=== PATIENT | female | born 1930 | race Caucasian/White ===

== ENCOUNTER 2016-10-06 13:05 | Emergency (ER) | payer MEDICARE ==
[2016-10-06] MEDS ORDERED: SODIUM CHLORIDE 0.9% 1,000 ML IV STA (14:08)
--- NOTE | 2016-10-06 14:11 | ED ---
General Adult HPI - General Chief complaint: Syncope Stated complaint: NEAR SYNCOPE Time Seen by Provider: 10/06/16 14:01 Source: patient, EMS, RN notes reviewed Mode of arrival: EMS Limitations: no limitations - History of Present Illness Initial comments: Patient is a pleasant 86-year-old female presenting to the emergency Department with a near syncopal episode. Patient reportedly never fully lost consciousness. Patient does not recall the episode it is unclear why she is here. Patient states she feels fine. Patient states she felt fine earlier. No chest pain or dyspnea. No confusion. No headache. No weakness. - Related Data Home Medications Medication Instructions Recorded Confirmed Clopidogrel [Plavix] 75 mg PO DAILY 06/26/14 10/06/16 Insulin NPH Hum/Reg Insulin Hm 16 unit SQ DAILY 06/26/14 10/06/16 [NovoLIN 70-30 100 UNIT/ML VIAL] Metoprolol Tartrate 25 mg PO DAILY 06/26/14 10/06/16 metFORMIN HCL [Glucophage] 500 mg PO BID 06/26/14 10/06/16 Donepezil [Aricept] 10 mg PO DAILY 07/23/15 10/06/16 Meclizine [Antivert] 25 mg PO DAILY PRN 07/23/15 10/06/16 Atorvastatin [Lipitor] 40 mg PO DAILY 12/13/15 10/06/16 Previous Rx's Medication Instructions Recorded Losartan Potassium [Cozaar] 100 mg PO DAILY 30 Days 07/27/15 QUEtiapine [SEROquel] 50 mg PO HS 30 Days 07/27/15 Isosorbide Mononitrate ER [Imdur] 30 mg PO DAILY #0 tab.er.24h 12/14/15 Allergies Allergy/AdvReac Type Severity Reaction Status Date / Time codeine Allergy Unknown Verified 10/06/16 14:33 latex Allergy Unknown Verified 10/06/16 14:33 levofloxacin [From Levaquin] Allergy Unknown Verified 10/06/16 14:33 nitrofurantoin Allergy Unknown Verified 10/06/16 14:33 macrocrystalline [From Macrodantin] Penicillins Allergy Unknown Verified 10/06/16 14:33 propoxyphene napsylate Allergy Unknown Verified 10/06/16 14:33 [From Darvocet-N 100] shellfish derived Allergy Unknown Verified 10/06/16 14:33 Sulfa (Sulfonamide Allergy Unknown Verified 10/06/16 14:33 Antibiotics) Review of Systems ROS Statement: Those systems with pertinent positive or pertinent negative responses have been documented in the HPI. ROS Other: All systems not noted in ROS Statement are negative. Constitutional: Denies: fever Eyes: Denies: eye pain ENT: Denies: ear pain Respiratory: Denies: cough, dyspnea Cardiovascular: Denies: chest pain Endocrine: Denies: fatigue Gastrointestinal: Denies: abdominal pain Genitourinary: Denies: dysuria Musculoskeletal: Denies: back pain Skin: Denies: rash Neurological: Denies: headache, weakness, confusion Past Medical History Past Medical History: Coronary Artery Disease (CAD), Cancer, Heart Failure, CVA/ TIA, Diabetes Mellitus, Hyperlipidemia, Hypertension, Memory Impairment Additional Past Medical History / Comment(s): DIZZINESS, colon cancer, mild cognitive impairment(aricept),occipital stroke w/mild rt sided weakness, djd( spine) History of Any Multi-Drug Resistant Organisms: None Reported Past Surgical History: Appendectomy, Cholecystectomy, Heart Catheterization With Stent, Tonsillectomy Additional Past Surgical History / Comment(s): partial colon resection d/t ca Past Anesthesia/Blood Transfusion Reactions: No Reported Reaction Date of Last Stent Placement:: unk Past Psychological History: Anxiety Additional Psychological History / Comment(s): PT LIVES ALONE IN OWN HOME, USES A CANE WHEN UP, NO RECENT FALLS BUT HAS FALLEN IN PAST. STATED HAS A CLEANNG LADY COME IN TO HELP HER,OTHER THAN THAT SHE CARES FOR HERSELF. Smoking Status: Never smoker Past Alcohol Use History: Occasional Past Drug Use History: None Reported - Past Family History Father History Unknown: Yes Family Medical History: CVA/TIA Additional Family Medical History / Comment(s): PT'S DAD WAS AN ADOPTED CHILD AND SHE STATED DID'NT KNOW A LOT ABOUT HIS HX. Mother Family Medical History: CVA/TIA Additional Family Medical History / Comment(s): FROM A STROKE AT AGE 90 General Exam Limitations: no limitations General appearance: alert, in no apparent distress Head exam: Present: atraumatic, normocephalic Eye exam: Present: normal appearance, PERRL, EOMI. Absent: nystagmus ENT exam: Present: normal oropharynx Neck exam: Present: normal inspection Respiratory exam: Present: normal lung sounds bilaterally Cardiovascular Exam: Present: regular rate, normal rhythm GI/Abdominal exam: Present: soft. Absent: tenderness Extremities exam: Present: normal inspection. Absent: pedal edema, calf tenderness Back exam: Present: normal inspection Neurological exam: Present: alert, oriented X3, CN II-XII intact. Absent: motor sensory deficit Expanded Patient oriented to: Present: person, place, time Speech: Present: fluid speech Motor strength exam: RUE: 5, LUE: 5, RLE: 5, LLE: 5 Eye Response: (4) open spontaneously Motor Response: (6) obeys commands Verbal Response: (5) oriented Psychiatric exam: Present: normal affect, normal mood Skin exam: Absent: rash Course Vital Signs 10/06/16 10/06/16 10/06/16 13:42 13:47 14:54 Temperature 97.0 F L Pulse Rate 74 76 Pulse Rate [ 80 Right Supine Sales Exhibitor ] Pulse Rate [ 88 Sitting Sales Exhibitor] Pulse Rate [ 84 Standing Sales Exhibitor ] Respiratory 18 20 Rate Blood Pressure 126/61 114/77 Blood Pressure 106/58 [Right Arm Sitting] Blood Pressure 121/61 [Right Arm Standing] Blood Pressure 108/56 [Right Arm Supine] O2 Sat by Pulse 96 98 Oximetry 10/06/16 16:00 Temperature Pulse Rate 70 Pulse Rate [ Right Supine Sales Exhibitor ] Pulse Rate [ Sitting Sales Exhibitor] Pulse Rate [ Standing Sales Exhibitor ] Respiratory 18 Rate Blood Pressure 110/64 Blood Pressure [Right Arm Sitting] Blood Pressure [Right Arm Standing] Blood Pressure [Right Arm Supine] O2 Sat by Pulse 98 Oximetry EKG Findings - EKG Comments: EKG Findings:: Sinus rhythm at 82. W[place] 178. QRS 78. QT 432. QTC 504. Left axis. Normal QRS. No acute ST change. PaCs present. Medical Decision Making - Medical Decision Making Patient reexamined and symptom-free. Case discussed in detail with Dr. Daniels who is familiar with this patient. He does recommend discharge and will follow-up. He states patient has been previously evaluated for this. Patient and family updated and comfortable with discharge. They're offered admission if they do not feel comfortable with discharge however state they are comfortable with discharge and will follow-up. - Lab Data Result diagrams: 10/06/16 14:00 10/06/16 14:00 Lab Results 10/06/16 10/06/1617 Range/Units 14:00 14:00 14:00 WBC 5.3 (3.8-10.6) k/uL RBC 4.83 (3.80-5.40) m/uL Hgb 14.7 (11.4-16.0) gm/dL Hct 45.5 (34.0-46.0) % MCV 94.2 (80.0-100.0) fL MCH 30.4 (25.0-35.0) pg MCHC 32.2 (31.0-37.0) g/dL RDW 13.9 (11.5-15.5) % Plt Count 154 (150-450) k/uL Neutrophils % 71 % Lymphocytes % 18 % Monocytes % 7 % Eosinophils % 2 % Basophils % 0 % Neutrophils # 3.8 (1.3-7.7) k/uL Lymphocytes # 1.0 (1.0-4.8) k/uL Monocytes # 0.3 (0-1.0) k/uL Eosinophils # 0.1 (0-0.7) k/uL Basophils # 0.0 (0-0.2) k/uL PT (9.0-12.0) sec INR (<1.1) APTT (22.0-30.0) sec Sodium 143 (137-145) mmol/L Potassium 4.1 (3.5-5.1) mmol/L Chloride 106 (98-107) mmol/L Carbon Dioxide 25 (22-30) mmol/L Anion Gap 12 mmol/L BUN 22 H (7-17) mg/dL Creatinine 0.99 (0.52-1.04) mg/dL Est GFR (MDRD) Af Amer >60 (>60 ml/min/1.73 sqM) Est GFR (MDRD) Non-Af 53 (>60 ml/min/1.73 sqM) Glucose 94 (74-99) mg/dL Calcium 9.4 (8.4-10.2) mg/dL Total Bilirubin 0.9 (0.2-1.3) mg/dL AST 25 (14-36) U/L ALT 37 (9-52) U/L Alkaline Phosphatase 110 (38-126) U/L Total Creatine Kinase 49 (30-135) U/L CK-MB (CK-2) 1.0 (0.0-2.4) ng/mL CK-MB (CK-2) Rel Index 2.0 Troponin I 0.012 (0.000-0.034) ng/mL Total Protein 6.9 (6.3-8.2) g/dL Albumin 4.2 (3.5-5.0) g/dL 10/06/16 Range/Units 14:00 WBC (3.8-10.6) k/uL RBC (3.80-5.40) m/uL Hgb (11.4-16.0) gm/dL Hct (34.0-46.0) % MCV (80.0-100.0) fL MCH (25.0-35.0) pg MCHC (31.0-37.0) g/dL RDW (11.5-15.5) % Plt Count (150-450) k/uL Neutrophils % % Lymphocytes % % Monocytes % % Eosinophils % % Basophils % % Neutrophils # (1.3-7.7) k/uL Lymphocytes # (1.0-4.8) k/uL Monocytes # (0-1.0) k/uL Eosinophils # (0-0.7) k/uL Basophils # (0-0.2) k/uL PT 12.3 H (9.0-12.0) sec INR 1.2 (<1.1) APTT 22.2 (22.0-30.0) sec Sodium (137-145) mmol/L Potassium (3.5-5.1) mmol/L Chloride (98-107) mmol/L Carbon Dioxide (22-30) mmol/L Anion Gap mmol/L BUN (7-17) mg/dL Creatinine (0.52-1.04) mg/dL Est GFR (MDRD) Af Amer (>60 ml/min/1.73 sqM) Est GFR (MDRD) Non-Af (>60 ml/min/1.73 sqM) Glucose (74-99) mg/dL Calcium (8.4-10.2) mg/dL Total Bilirubin (0.2-1.3) mg/dL AST (14-36) U/L ALT (9-52) U/L Alkaline Phosphatase (38-126) U/L Total Creatine Kinase (30-135) U/L CK-MB (CK-2) (0.0-2.4) ng/mL CK-MB (CK-2) Rel Index Troponin I (0.000-0.034) ng/mL Total Protein (6.3-8.2) g/dL Albumin (3.5-5.0) g/dL - Radiology Data Radiology results: image reviewed (Chest x-ray shows no acute process. Computed tomography scan the brain shows no acute process. Previous infarcts are present.) Disposition Clinical Impression: Near syncope Disposition: HOME SELF-CARE Condition: Stable Instructions: Near Syncope (ED) Additional Instructions: Please follow-up with Dr. Singh in the beginning of the week. Return for passing out, chest pain, difficulty breathing, confusion, worsening symptoms or other concerns. Referrals: Leonel Singh MD [Primary Care Provider] - 1-2 days
[2016-10-06 14:28] LABS: Basophils % (A) 0 %; CH 31.3; CHCM 33.4; Eosinophils # (A) 0.1 k/uL (0-0.7); Eosinophils % (A) 2 %; HCT 45.5 % (34.0-46.0); HDW 2.58; HGB 14.7 gm/dL (11.4-16.0); Luc # (Auto) 0.11; Luc % (Auto) 2; Lymphocytes % (A) 18 %; MCH 30.4 pg (25.0-35.0); MCHC 32.2 g/dL (31.0-37.0); MCV 94.2 fL (80.0-100.0); Mean Platelet Volume 8.5; Monocytes # (A) 0.3 k/uL (0-1.0); Monocytes % (A) 7 %; Neutrophils # (A) 3.8 k/uL (1.3-7.7); Neutrophils % (A) 71 %; RBC 4.83 m/uL (3.80-5.40); RDW 13.9 % (11.5-15.5); WBC 5.3 k/uL (3.8-10.6); WBC (Perox) 4.98
--- NOTE | 2016-10-06 14:40 | XR ---
EXAMINATION TYPE: XR chest 2V DATE OF EXAM: 10/06/2016 2:32 PM COMPARISON: 10/06/2016 HISTORY: Shortness of breath TECHNIQUE: Frontal and lateral views of the chest are obtained. FINDINGS: Scattered senescent parenchymal changes noted. Hyperinflation compatible with COPD. No evidence for infiltrate. No evidence for atelectasis. Heart size is stable. Mediastinal structures are stable and grossly unremarkable. No evidence for hilar prominence. Degenerative changes dorsal spine. IMPRESSION: 1. No evidence for acute pulmonary disease.
[2016-10-06 14:45] LABS: INR 1.2 (<1.1); Partial Thromboplastin Time 22.2 sec (22.0-30.0); Prothrombin Time 12.3 sec (9.0-12.0)
[2016-10-06 14:48] LABS: ALT 37 U/L (9-52); AST 25 U/L (14-36); Alkaline Phosphatase 110 U/L (38-126); Anion Gap 12 mmol/L; Blood Urea Nitrogen 22 mg/dL (7-17); Calcium 9.4 mg/dL (8.4-10.2); Carbon Dioxide 25 mmol/L (22-30); Chloride 106 mmol/L (98-107); Glucose 94 mg/dL (74-99); Non-African American GFR(MDRD) 53 (>60 ml/min/1.73 sqM); Potassium 4.1 mmol/L (3.5-5.1); Sodium 143 mmol/L (137-145); Total Bilirubin 0.9 mg/dL (0.2-1.3); Total Protein 6.9 g/dL (6.3-8.2)
[2016-10-06 15:08] LABS: Troponin I 0.012 ng/mL (0.000-0.034)
--- NOTE | 2016-10-06 15:59 | CT ---
EXAMINATION TYPE: CT brain wo con DATE OF EXAM: 10/06/2016 3:45 PM COMPARISON: Prior CT brain 21 August 2016 HISTORY: Pt states of confusion. Altered mental status, syncope CT DLP: 973.8 mGycm Automated exposure control for dose reduction was used. FINDINGS: There is no acute intracranial hemorrhage, mass effect, or midline shift identified. The calvarium is intact. The globes are intact and the visualized sinuses are showing some mild inflammatory change i n the sphenoid on the right. Cerumen is present in the external auditory canal on the right. Evidence of chronic inferior cerebellar infarct in the left, left occipital infarct, left basal ganglia infar ct, periventricular white matter low-attenuation as on previous exam. There is cortical atrophy. IMPRESSION: No acute intracranial hemorrhage, mass effect, or midline shift is seen. Stable chronic ischemic pena ges. Evidence of previous infarctions.
[2016-10-06 16:02] VITALS: RESP 18
[2016-10-06 16:32] VITALS: BP 122/65; PULSE 67; TEMP 98
== END 2016-10-06 16:39 | disposition home or self-care (01) ==
LOC: EC 13:05
DX: R55 Syncope and collapse (principal); I69.351 Hemiplegia and hemiparesis following cerebral infarction affecting right dominant side; I11.0 Hypertensive heart disease with heart failure; I50.9 Heart failure, unspecified; E11.9 Type 2 diabetes mellitus without complications; G31.84 Mild cognitive impairment of uncertain or unknown etiology; E78.5 Hyperlipidemia, unspecified; I25.10 Atherosclerotic heart disease of native coronary artery without angina pectoris; F41.9 Anxiety disorder, unspecified; Z95.5 Presence of coronary angioplasty implant and graft; Z79.84 Long term (current) use of oral hypoglycemic drugs; Z79.02 Long term (current) use of antithrombotics/antiplatelets; Z79.4 Long term (current) use of insulin; Z79.899 Other long term (current) drug therapy; Z88.0 Allergy status to penicillin; Z88.1 Allergy status to other antibiotic agents; Z88.2 Allergy status to sulfonamides; Z88.5 Allergy status to narcotic agent; Z91.040 Latex allergy status
CPT/HCPCS: 36415; 70450; 71020; 80053; 82550; 82553; 84484; 85025; 85610; 85730; 93005; 96360; 96361; 99285

== ENCOUNTER 2017-10-05 12:54 | Inpatient (IN) | payer MEDICARE ==
[2017-10-05] MEDS ORDERED: DILTIAZEM 125 MG in SODIUM CHLORIDE 0.9% 100 ML IV ONE (13:08)
[2017-10-05] MEDS ORDERED: DILTIAZEM 5 MG/ML 5 ML VIAL IVP STA (13:08)
[2017-10-05] MEDS ORDERED: SODIUM CHLORIDE 0.9% 500 ML IV STA (13:08)
[2017-10-05] MEDS ORDERED: HEPARIN SODIUM,PORCINE 5,000 UNIT/ML 1 ML VIAL IV ONE (13:08)
[2017-10-05] MEDS ORDERED: SODIUM CHLORIDE 0.9% 1,000 ML IV STA (13:08)
[2017-10-05] MEDS ORDERED: HEPARIN SODIUM,PORCINE 5,000 UNIT/ML 1 ML VIAL IV PRN (13:08)
--- NOTE | 2017-10-05 13:26 | ED ---
General Adult HPI - General Chief complaint: Altered Mental Status Stated complaint: SOB,Confusion Time Seen by Provider: 10/05/17 12:56 Source: patient, EMS, RN notes reviewed, old records reviewed Mode of arrival: EMS Limitations: altered mental status - History of Present Illness Initial comments: This is an 87-year-old female to the ER for evaluation. This patient is safe for evaluation regards to altered mental state. Patient comes from snf , patient was found showing up to breakfast in her nightgown. This is not certain this patient has done in the past. Patient denies any complaints at this time no headache or chest pain or shortness of breath no abdominal pain recent nausea vomiting diarrhea no fevers. No recent medication changes. - Related Data Home Medications Medication Instructions Recorded Confirmed Clopidogrel [Plavix] 75 mg PO DAILY 06/26/14 10/05/17 Metoprolol Tartrate 25 mg PO HS 06/26/14 10/05/17 metFORMIN HCL [Glucophage] 500 mg PO BID 06/26/14 10/05/17 Donepezil [Aricept] 10 mg PO HS 07/23/15 10/05/17 Meclizine [Antivert] 25 mg PO HS 07/23/15 10/05/17 Aspirin EC [Ecotrin Low Dose] 81 mg PO DAILY 10/05/17 10/05/17 Citalopram Hydrobromide [CeleXA] 10 mg PO DAILY 10/05/17 10/05/17 Insuln Asp Prt/Insulin Aspart 5 unit SQ BID 10/05/17 10/05/17 [NovoLOG MIX 70-30 VIAL] Previous Rx's Medication Instructions Recorded Losartan Potassium [Cozaar] 100 mg PO DAILY 30 Days tab 07/27/15 Isosorbide Mononitrate ER [Imdur] 30 mg PO DAILY #0 tab.er.24h 12/14/15 Allergies Allergy/AdvReac Type Severity Reaction Status Date / Time codeine Allergy Unknown Verified 10/05/17 13:32 latex Allergy Unknown Verified 10/05/17 13:32 levofloxacin [From Levaquin] Allergy Unknown Verified 10/05/17 13:32 nitrofurantoin Allergy Unknown Verified 10/05/17 13:32 macrocrystalline [From Macrodantin] Penicillins Allergy Unknown Verified 10/05/17 13:32 propoxyphene napsylate Allergy Unknown Verified 10/05/17 13:32 [From Darvocet-N 100] shellfish derived Allergy Unknown Verified 10/05/17 13:32 Sulfa (Sulfonamide Allergy Unknown Verified 10/05/17 13:32 Antibiotics) Review of Systems ROS Statement: Those systems with pertinent positive or pertinent negative responses have been documented in the HPI. ROS Other: All systems not noted in ROS Statement are negative. Past Medical History Past Medical History: Coronary Artery Disease (CAD), Cancer, Heart Failure, CVA/ TIA, Diabetes Mellitus, Hyperlipidemia, Hypertension, Memory Impairment Additional Past Medical History / Comment(s): DIZZINESS, colon cancer, mild cognitive impairment(aricept),occipital stroke w/mild rt sided weakness, djd( spine) History of Any Multi-Drug Resistant Organisms: None Reported Past Surgical History: Appendectomy, Cholecystectomy, Heart Catheterization With Stent, Tonsillectomy Additional Past Surgical History / Comment(s): partial colon resection d/t ca Past Anesthesia/Blood Transfusion Reactions: No Reported Reaction Date of Last Stent Placement:: unk Past Psychological History: Anxiety Smoking Status: Never smoker Past Alcohol Use History: Occasional Past Drug Use History: None Reported - Past Family History Father History Unknown: Yes Family Medical History: CVA/TIA Additional Family Medical History / Comment(s): PT'S DAD WAS AN ADOPTED CHILD AND SHE STATED DID'NT KNOW A LOT ABOUT HIS HX. Mother Family Medical History: CVA/TIA Additional Family Medical History / Comment(s): FROM A STROKE AT AGE 90 General Exam Limitations: altered mental status General appearance: alert, in no apparent distress Head exam: Present: atraumatic, normocephalic, normal inspection Eye exam: Present: normal appearance, PERRL, EOMI. Absent: scleral icterus, conjunctival injection, periorbital swelling ENT exam: Present: normal exam, mucous membranes moist Neck exam: Present: normal inspection. Absent: tenderness, meningismus, lymphadenopathy Respiratory exam: Present: normal lung sounds bilaterally. Absent: respiratory distress, wheezes, rales, rhonchi, stridor Cardiovascular Exam: Present: tachycardia, irregular rhythm, normal heart sounds. Absent: systolic murmur, diastolic murmur, rubs, gallop, clicks GI/Abdominal exam: Present: soft, normal bowel sounds. Absent: distended, tenderness, guarding, rebound, rigid Extremities exam: Present: normal inspection, full ROM, normal capillary refill. Absent: tenderness, pedal edema, joint swelling, calf tenderness Back exam: Present: normal inspection Neurological exam: Present: alert, oriented X3, CN II-XII intact Psychiatric exam: Present: normal affect, normal mood Skin exam: Present: warm, dry, intact, normal color. Absent: rash Course Vital Signs 10/05/17 10/05/17 12:57 14:02 Temperature 98.3 F Pulse Rate 88 88 Respiratory 16 16 Rate Blood Pressure 123/95 157/81 O2 Sat by Pulse 96 95 Oximetry - Reevaluation(s) Reevaluation #1: 10/05/17 13:31 Patient appears to answer questions appropriately, shows humility fractions this morning Reevaluation #2: 10/05/17 14:25 Patient continues to remain for the most part lucid, denies chest pain or shortness of breath EKG Findings - EKG Comments: EKG Findings:: EKG shows A. fib with RVR rate 170, QRS 76, QTc 5:30 Medical Decision Making - Medical Decision Making 87 female the ER for altered mental status, patient with positive nature for ablation with RVR, patient will be admitted for current and continue monitoring of altered mental status. Controlled atrial fibrillation - Lab Data Result diagrams: 10/05/17 13:00 10/05/17 13:00 Lab Results 10/05/17 10/05/17 10/05/17 Range/Units 13:00 13:00 13:00 WBC 5.7 (3.8-10.6) k/uL RBC 4.89 (3.80-5.40) m/uL Hgb 14.8 (11.4-16.0) gm/dL Hct 47.2 H (34.0-46.0) % MCV 96.6 (80.0-100.0) fL MCH 30.3 (25.0-35.0) pg MCHC 31.4 (31.0-37.0) g/dL RDW 14.3 (11.5-15.5) % Plt Count 185 (150-450) k/uL Neutrophils % 76 % Lymphocytes % 15 % Monocytes % 4 % Eosinophils % 1 % Basophils % 1 % Neutrophils # 4.4 (1.3-7.7) k/uL Lymphocytes # 0.9 L (1.0-4.8) k/uL Monocytes # 0.2 (0-1.0) k/uL Eosinophils # 0.1 (0-0.7) k/uL Basophils # 0.0 (0-0.2) k/uL PT (9.0-12.0) sec INR (<1.2) APTT (22.0-30.0) sec D-Dimer (<0.60) mg/L FEU Sodium 139 (137-145) mmol/L Potassium 4.1 (3.5-5.1) mmol/L Chloride 103 (98-107) mmol/L Carbon Dioxide 24 (22-30) mmol/L Anion Gap 12 mmol/L BUN 19 H (7-17) mg/dL Creatinine 0.90 (0.52-1.04) mg/dL Est GFR (MDRD) Af Amer >60 (>60 ml/min/1.73 sqM) Est GFR (MDRD) Non-Af 59 (>60 ml/min/1.73 sqM) Glucose 459 H* (74-99) mg/dL POC Glucose (mg/dL) (75-99) mg/dL POC Glu Mechanical Manager ID Calcium 9.4 (8.4-10.2) mg/dL Phosphorus 3.1 (2.5-4.5) mg/dL Magnesium 1.6 (1.6-2.3) mg/dL Total Bilirubin 0.7 (0.2-1.3) mg/dL AST 15 (14-36) U/L ALT 25 (9-52) U/L Alkaline Phosphatase 111 (38-126) U/L Total Creatine Kinase 27 L (30-135) U/L CK-MB (CK-2) 0.5 (0.0-2.4) ng/mL CK-MB (CK-2) Rel Index 1.9 Troponin I 0.014 (0.000-0.034) ng/mL NT-Pro-B Natriuret Pep pg/mL Total Protein 6.0 L (6.3-8.2) g/dL Albumin 3.6 (3.5-5.0) g/dL 10/05/17 10/05/17 10/05/17 Range/Units 13:00 13:00 13:15 WBC (3.8-10.6) k/uL RBC (3.80-5.40) m/uL Hgb (11.4-16.0) gm/dL Hct (34.0-46.0) % MCV (80.0-100.0) fL MCH (25.0-35.0) pg MCHC (31.0-37.0) g/dL RDW (11.5-15.5) % Plt Count (150-450) k/uL Neutrophils % % Lymphocytes % % Monocytes % % Eosinophils % % Basophils % % Neutrophils # (1.3-7.7) k/uL Lymphocytes # (1.0-4.8) k/uL Monocytes # (0-1.0) k/uL Eosinophils # (0-0.7) k/uL Basophils # (0-0.2) k/uL PT 11.5 (9.0-12.0) sec INR 1.2 H (<1.2) APTT 21.9 L (22.0-30.0) sec D-Dimer 0.87 H (<0.60) mg/L FEU Sodium (137-145) mmol/L Potassium (3.5-5.1) mmol/L Chloride (98-107) mmol/L Carbon Dioxide (22-30) mmol/L Anion Gap mmol/L BUN (7-17) mg/dL Creatinine (0.52-1.04) mg/dL Est GFR (MDRD) Af Amer (>60 ml/min/1.73 sqM) Est GFR (MDRD) Non-Af (>60 ml/min/1.73 sqM) Glucose (74-99) mg/dL POC Glucose (mg/dL) 420 H (75-99) mg/dL POC Glu Mechanical Manager ID [place] Calcium (8.4-10.2) mg/dL Phosphorus (2.5-4.5) mg/dL Magnesium (1.6-2.3) mg/dL Total Bilirubin (0.2-1.3) mg/dL AST (14-36) U/L ALT (9-52) U/L Alkaline Phosphatase (38-126) U/L Total Creatine Kinase (30-135) U/L CK-MB (CK-2) (0.0-2.4) ng/mL CK-MB (CK-2) Rel Index Troponin I (0.000-0.034) ng/mL NT-Pro-B Natriuret Pep 1100 pg/mL Total Protein (6.3-8.2) g/dL Albumin (3.5-5.0) g/dL - Radiology Data Radiology results: report reviewed (Chest x-ray CT brain negative CT chest pending), image reviewed Disposition Clinical Impression: Delirium due to general medical condition, Urinary tract infection, Altered mental status, Atrial fibrillation with RVR, New onset atrial fibrillation Disposition: ADMITTED IP TO THIS HOSP Condition: Good Referrals: Mahin Kim MD [Primary Care Provider] - 1-2 days
[2017-10-05 13:51] LABS: Basophils % (A) 1 %; Eosinophils # (A) 0.1 k/uL (0-0.7); Eosinophils % (A) 1 %; HCT 47.2 % (34.0-46.0); HGB 14.8 gm/dL (11.4-16.0); Lymphocytes # (A) 0.9 k/uL (1.0-4.8); Lymphocytes % (A) 15 %; MCH 30.3 pg (25.0-35.0); MCHC 31.4 g/dL (31.0-37.0); MCV 96.6 fL (80.0-100.0); Mean Platelet Volume 8.8; Monocytes # (A) 0.2 k/uL (0-1.0); Monocytes % (A) 4 %; Neutrophils # (A) 4.4 k/uL (1.3-7.7); Neutrophils % (A) 76 %; Platelet Count 185 k/uL (150-450); RBC 4.89 m/uL (3.80-5.40); RDW 14.3 % (11.5-15.5); WBC 5.7 k/uL (3.8-10.6)
[2017-10-05 13:58] LABS: ALT 25 U/L (9-52); AST 15 U/L (14-36); Albumin 3.6 g/dL (3.5-5.0); Alkaline Phosphatase 111 U/L (38-126); Anion Gap 12 mmol/L; Blood Urea Nitrogen 19 mg/dL (7-17); Calcium 9.4 mg/dL (8.4-10.2); Carbon Dioxide 24 mmol/L (22-30); Chloride 103 mmol/L (98-107); Magnesium 1.6 mg/dL (1.6-2.3); Phosphorus 3.1 mg/dL (2.5-4.5); Potassium 4.1 mmol/L (3.5-5.1); Sodium 139 mmol/L (137-145); Total Bilirubin 0.7 mg/dL (0.2-1.3)
[2017-10-05 14:02] LABS: Glucose,Whole Blood 420 mg/dL (75-99)
--- NOTE | 2017-10-05 14:04 | XR ---
EXAMINATION TYPE: XR chest 2V DATE OF EXAM: 10/05/2017 COMPARISON: Prior chest x-ray 10/06/2016 HISTORY: Weakness TECHNIQUE: Frontal and lateral views of the chest are obtained. FINDINGS: There is no focal air space opacity, pleural effusion, or pneumothorax seen. The cardiac silhouette size is stable. There are coronary artery calcifications. There are overlying cardiac reena ds. Suspect previous resection of the distal right clavicle. Apical density superimposed over the med ial right clavicle is unchanged. The osseous structures are intact. IMPRESSION: No acute cardiopulmonary process.
--- NOTE | 2017-10-05 14:07 | CT ---
EXAMINATION TYPE: CT brain wo con DATE OF EXAM: 10/05/2017 COMPARISON: 10/06/2016 HISTORY: Weakness. History of Occipital stroke with mild right sided weakness. CT DLP: 978.20 mGycm Automated exposure control for dose reduction was used. FINDINGS: Remote left cerebellar infarct noted. There is moderate to severe generalized degenerative change wit h evidence of a remote infarct involving the left occipital lobe and parietal lobe. Abnormal attenuation the periventricular white matter suggestive of remote microvascular ischemia. Hyperostosis of the calvarium. No acute hemorrhage, mass effect or midline shift. Hypodensity within the left basal ganglia may represent a remote lacunar infarct. Findings stable IMPRESSION: DEGENERATIVE AND NONSPECIFIC WHITE MATTER CHANGES MOST TYPICAL REMOTE MICROVASCULAR ISCHEMIA. AREAS O F REMOTE ISCHEMIA. STABLE WITH NO ACUTE HEMORRHAGE OR MASS EFFECT
[2017-10-05 14:10] LABS: D-Dimer 0.87 mg/L FEU (<0.60); INR 1.2 (<1.2); Partial Thromboplastin Time 21.9 sec (22.0-30.0); Prothrombin Time 11.5 sec (9.0-12.0)
[2017-10-05] MEDS: HEPARIN SOD,PORK IN 0.45% NACL 25,000 UNIT in 0.45% NACL 1 500ML.BAG IV SCH (14:10)
[2017-10-05 14:14] LABS: Creatine Kinase MB 0.5 ng/mL (0.0-2.4); Troponin I 0.014 ng/mL (0.000-0.034)
[2017-10-05 14:15] LABS: Glucose 459 mg/dL (74-99)
[2017-10-05] MEDS ORDERED: RX INFO: IV CONTRAST WAS GIVEN 1 EACH MISC MISCELLANE PRN (14:23)
--- NOTE | 2017-10-05 15:35 | CT ---
EXAMINATION TYPE: CT angio chest DATE OF EXAM: 10/05/2017 COMPARISON: 12/18/2015 HISTORY: 87-year-old female SOB and Confusion TECHNIQUE: Contiguous axial scanning of the chest performed with IV Contrast, patient injected with 1 00 ml mL of Omnipaque 350. Coronal/sagittal MIP reconstructions performed. CT DLP: 195.9 mGycm Automated exposure control for dose reduction was used. FINDINGS: Heart upper limits of normal in size without pericardial effusion. Mitral annular and coronary vessel calcifications are present. Ascending aorta is ectatic at 3.9 cm, unchanged. Conventional arch vessel branching anatomy with very mild scattered arthroscopic calcifications. Satisfactory opacification of the pulmonary arterial system without evidence for pulmonary embolus. Prominent dependent atelectasis and additional hazy densities in the lungs likely generalized atelect asis. Mild diffuse bronchial wall thickening is noted. Some prominent left hilar soft tissue measurin g 1.2 cm there is increased from 12/18/2015. Six-month follow-up can be performed. Possible underlying postinflammatory lymph node. Moderate size hiatal hernia. No osseous destructive process. Fatty matrix hemangiomas within T2 and T 9 vertebral bodies. IMPRESSION: 1. NO EVIDENCE FOR PULMONARY EMBOLUS. 2. 1.2 CM LEFT HILAR SOFT TISSUE PROBABLY REPRESENTS A POSTINFLAMMATORY LYMPH NODE. SIX-MONTH FOLLOW -UP CONTRAST-ENHANCED CT TO REASSESS THIS AREA. 3. MILD DIFFUSE BRONCHIAL WALL THICKENING. CORRELATE FOR BRONCHITIS OR ASTHMA 4. ADDITIONAL HAZY DENSITIES IN BOTH LUNGS LIKELY RELATING TO GENERALIZED ATELECTASIS. 5. MODERATE-SIZED HIATAL HERNIA.
[2017-10-05 15:39] LABS: Appearance,Urine Clear (Clear); Bilirubin,Urine Negative (Negative); Blood,Urine Negative (Negative); Color,Urine Yellow; Glucose,Urine (UA) 4+ (Negative); Ketones,Urine Negative (Negative); Leukocyte Esterase,Urine Negative (Negative); Nitrite,Urine Negative (Negative); PH, Urine 5.5 (5.0-8.0); Protein,Urine Negative (Negative); Specific Gravity,Urine 1.031 (1.001-1.035); Urobilinogen,Urine <2.0 mg/dL (<2.0)
[2017-10-05] MEDS ORDERED: MORPHINE SULFATE 2 MG/ML SYRINGE IV PRN (16:02)
[2017-10-05] MEDS ORDERED: NITROGLYCERIN SL TABS 0.4 MG TAB SUBLINGUAL PRN (16:02)
[2017-10-05] MEDS ORDERED: INSULIN REGULAR 100 UNIT/ML VIAL SQ ONE (16:03)
[2017-10-05] MEDS ORDERED: INSULIN REGULAR 100 UNIT/ML VIAL IV ONE (16:03)
[2017-10-05 16:28] LABS: Glucose,Whole Blood 331 mg/dL (75-99)
[2017-10-05 17:16] LABS: Glucose,Whole Blood 253 mg/dL (75-99)
[2017-10-05] MEDS: INSULIN ASPART 100 UNIT/ML 1 ML 10 ML VIAL SQ SCH (18:05)
[2017-10-05 19:38] LABS: Creatine Kinase 33 U/L (30-135)
[2017-10-05 19:51] LABS: Creatine Kinase MB 0.5 ng/mL (0.0-2.4); Troponin I <0.012 ng/mL (0.000-0.034)
[2017-10-05] MEDS ORDERED: Magnesium Replacement Protocol 1 EACH MISC MISCELLANE PRN (21:55)
[2017-10-06 01:49] LABS: Creatine Kinase 35 U/L (30-135)
[2017-10-06 02:01] LABS: Creatine Kinase MB 0.7 ng/mL (0.0-2.4); Troponin I <0.012 ng/mL (0.000-0.034)
[2017-10-06 06:46] LABS: Basophils % (A) 0 %; Eosinophils # (A) 0.1 k/uL (0-0.7); Eosinophils % (A) 2 %; HCT 41.4 % (34.0-46.0); HGB 13.5 gm/dL (11.4-16.0); Lymphocytes # (A) 1.5 k/uL (1.0-4.8); Lymphocytes % (A) 29 %; MCH 30.2 pg (25.0-35.0); MCHC 32.5 g/dL (31.0-37.0); MCV 92.9 fL (80.0-100.0); Mean Platelet Volume 8.2; Monocytes # (A) 0.3 k/uL (0-1.0); Monocytes % (A) 6 %; Neutrophils # (A) 3.2 k/uL (1.3-7.7); Neutrophils % (A) 59 %; Platelet Count 164 k/uL (150-450); RBC 4.46 m/uL (3.80-5.40); RDW 13.4 % (11.5-15.5); WBC 5.3 k/uL (3.8-10.6)
[2017-10-06 06:54] LABS: Glucose,Whole Blood 185 mg/dL (75-99)
[2017-10-06 06:58] LABS: Magnesium 1.5 mg/dL (1.6-2.3)
[2017-10-06] MEDS: INSULIN ASPART 100 UNIT/ML 1 ML 10 ML VIAL SQ SCH ×3 (07:11→17:21)
[2017-10-06] MEDS: INSULN ASP PRT/INSULIN ASPART 100 UNIT/ML 10 ML VIAL SQ SCH ×2 (07:11→17:21)
[2017-10-06 07:28] LABS: ALT 29 U/L (9-52); AST 15 U/L (14-36); Albumin 3.4 g/dL (3.5-5.0); Alkaline Phosphatase 96 U/L (38-126); Anion Gap 10 mmol/L; Blood Urea Nitrogen 16 mg/dL (7-17); Calcium 9.1 mg/dL (8.4-10.2); Carbon Dioxide 23 mmol/L (22-30); Chloride 108 mmol/L (98-107); Glucose 202 mg/dL (74-99); Potassium 3.6 mmol/L (3.5-5.1); Sodium 141 mmol/L (137-145); Total Bilirubin 0.5 mg/dL (0.2-1.3); Total Protein 5.7 g/dL (6.3-8.2)
[2017-10-06] MEDS: MAGNESIUM SULFATE-D5W PMX 1 GM in DEXTROSE/WATER 1 100ML.BAG IVPB SCH ×2 (08:20→09:59)
[2017-10-06] MEDS: LOSARTAN 50 MG TAB PO SCH (08:21)
[2017-10-06] MEDS: CITALOPRAM HYDROBROMIDE 10 MG TAB PO SCH (08:21)
[2017-10-06] MEDS: metFORMIN 500 MG TAB PO SCH ×2 (08:21→21:29)
[2017-10-06] MEDS: CLOPIDOGREL 75 MG TAB PO SCH (08:22)
[2017-10-06] MEDS: ASPIRIN 325 MG TAB PO SCH (08:24)
--- NOTE | 2017-10-06 08:28 | P.CRDCN ---
History of Present Illness History of present illness: Patient initially admitted with altered mental status. I'm not able to get much of a history but she doesn't really know why she is here. She is awake alert but her responses do not make sense and she doesn't answer questions appropriately Review of systems not available Past history of coronary artery disease diabetes and dyslipidemia hypertension and memory impairment Past surgical history of appendectomy cholecystectomy, catheterization and stenting, partial resection of the colon ALLERGY list is documented in the chart Medication list was reviewed and is documented On examination temperature 98.3F respirations normal blood pressure 171/98 and 116/82 mmHg afebrile Breath sounds are reduced bilaterally no rhonchi no crackles Heart sounds are irregular no murmurs or gallops abdomen soft nontender extremity is warm no edema Twelve-lead ECG shows atrial fibrillation with RVR 117 beats a minute Impression Atrial fibrillation with RVR Known CAD History of coronary stenting Adult-onset diabetes Hypertension Dyslipidemia Suggest Increase metoprolol to 25 mg twice daily Watch blood pressure and maximize antihypertensive therapy, watch heart rates TSH level The coagulation for stroke prevention is medically indicated but she is not on anticoagulation at home. I'm not sure if this is new onset atrial fibrillation and not if she is safe from a fall standpoint and bleeding risk then ELIQUIS 2.5 mg twice daily may be considered. Past Medical History Past Medical History: Coronary Artery Disease (CAD), Cancer, Heart Failure, CVA/ TIA, Diabetes Mellitus, Hyperlipidemia, Hypertension, Memory Impairment Additional Past Medical History / Comment(s): DIZZINESS, colon cancer, mild cognitive impairment(aricept),occipital stroke w/mild rt sided weakness, djd( spine) History of Any Multi-Drug Resistant Organisms: None Reported Past Surgical History: Appendectomy, Cholecystectomy, Heart Catheterization With Stent, Tonsillectomy Additional Past Surgical History / Comment(s): partial colon resection d/t ca Past Anesthesia/Blood Transfusion Reactions: No Reported Reaction Date of Last Stent Placement:: unk Past Psychological History: Anxiety Additional Psychological History / Comment(s): PT LIVES ALONE IN OWN HOME, USES A CANE WHEN UP, NO RECENT FALLS BUT HAS FALLEN IN PAST. STATED HAS A CLEANNG LADY COME IN TO HELP HER,OTHER THAN THAT SHE CARES FOR HERSELF. Smoking Status: Never smoker Past Alcohol Use History: Occasional Past Drug Use History: None Reported - Past Family History Father History Unknown: Yes Family Medical History: CVA/TIA Additional Family Medical History / Comment(s): PT'S DAD WAS AN ADOPTED CHILD AND SHE STATED DID'NT KNOW A LOT ABOUT HIS HX. Mother Family Medical History: CVA/TIA Additional Family Medical History / Comment(s): FROM A STROKE AT AGE 90 Medications and Allergies Home Medications Medication Instructions Recorded Confirmed Type Clopidogrel [Plavix] 75 mg PO DAILY 06/26/14 10/05/17 History Metoprolol Tartrate 25 mg PO HS 06/26/14 10/05/17 History metFORMIN HCL [Glucophage] 500 mg PO BID 06/26/14 10/05/17 History Donepezil [Aricept] 10 mg PO HS 07/23/15 10/05/17 History Meclizine [Antivert] 25 mg PO HS 07/23/15 10/05/17 History Losartan Potassium [Cozaar] 100 mg PO DAILY 30 Days tab 07/27/15 10/05/17 Rx Isosorbide Mononitrate ER [Imdur] 30 mg PO DAILY #0 tab.er.24h 12/14/15 Rx Aspirin EC [Ecotrin Low Dose] 81 mg PO DAILY 10/05/17 10/05/17 History Citalopram Hydrobromide [CeleXA] 10 mg PO DAILY 10/05/17 10/05/17 History Insuln Asp Prt/Insulin Aspart 5 unit SQ BID 10/05/17 10/05/17 History [NovoLOG MIX 70-30 VIAL] Allergies Allergy/AdvReac Type Severity Reaction Status Date / Time codeine Allergy Unknown Verified 10/05/17 13:32 latex Allergy Unknown Verified 10/05/17 13:32 levofloxacin [From Levaquin] Allergy Unknown Verified 10/05/17 13:32 nitrofurantoin Allergy Unknown Verified 10/05/17 13:32 macrocrystalline [From Macrodantin] Penicillins Allergy Unknown Verified 10/05/17 13:32 propoxyphene napsylate Allergy Unknown Verified 10/05/17 13:32 [From Darvocet-N 100] shellfish derived Allergy Unknown Verified 10/05/17 13:32 Sulfa (Sulfonamide Allergy Unknown Verified 10/05/17 13:32 Antibiotics) Physical Exam Vitals: Vital Signs Temp Pulse Pulse Resp BP BP Pulse Ox 10/06/17 07:14 97.5 F L 94 17 169/82 94 L 10/06/17 04:00 97.0 F L 87 18 171/98 95 10/06/17 00:00 97.0 F L 93 18 137/103 98 10/05/17 20:00 97.6 F 93 18 124/62 95 10/05/17 18:00 98.0 F 20 94 L 10/05/17 16:35 98 F 91 16 156/78 95 10/05/17 15:30 97.9 F 73 16 157/83 97 10/05/17 14:02 88 16 157/81 95 10/05/17 12:57 98.3 F 88 16 123/95 96 Intake and Output 10/05/17 10/06/17 10/06/17 22:59 06:59 14:59 Intake Total 200 800 387.091 Balance 200 800 387.091 Intake: Intake, IV Titration 800 269.091 Amount Heparin Sod,Pork in 0.45% 269.091 NaCl 25,000 unit In 0.45 % NaCl 1 500ml.bag @ 12 UNITS/KG/HR 15.86 mls/hr IV .Q24H DREW Rx#: [id number] Sodium Chloride 0.9% 1, 800 000 ml @ 100 mls/hr IV . Q10H STA Rx#:[id number] Oral 200 118 Other: Voiding Method Toilet Toilet Weight 63.5 kg Results 10/06/17 05:51 10/06/17 05:51 Cardiac Enzymes 10/05/17 10/05/17 10/05/17 Range/Units 13:00 13:00 18:44 AST 15 (14-36) U/L CK-MB (CK-2) 0.5 0.5 (0.0-2.4) ng/mL Troponin I 0.014 <0.012 (0.000-0.034) ng/mL 10/06/17 10/06/17 Range/Units 00:54 05:51 AST 15 (14-36) U/L CK-MB (CK-2) 0.7 (0.0-2.4) ng/mL Troponin I <0.012 (0.000-0.034) ng/mL Coagulation 10/05/17 10/05/17 10/06/17 Range/Units 13:00 18:44 05:51 PT 11.5 (9.0-12.0) sec APTT 21.9 L 48.9 H 46.0 H (22.0-30.0) sec Lipids 10/06/17 Range/Units 05:51 Triglycerides 111 (<150) mg/dL Cholesterol 209 H (<200) mg/dL HDL Cholesterol 66 H (40-60) mg/dL CBC 10/05/17 10/06/17 Range/Units 13:00 05:51 WBC 5.7 5.3 (3.8-10.6) k/uL RBC 4.89 4.46 (3.80-5.40) m/uL Hgb 14.8 13.5 (11.4-16.0) gm/dL Hct 47.2 H 41.4 (34.0-46.0) % Plt Count 185 164 (150-450) k/uL Comprehensive Metabolic Panel 10/05/17 10/06/17 Range/Units 13:00 05:51 Sodium 139 141 (137-145) mmol/L Potassium 4.1 3.6 (3.5-5.1) mmol/L Chloride 103 108 H (98-107) mmol/L Carbon Dioxide 24 23 (22-30) mmol/L BUN 19 H 16 (7-17) mg/dL Creatinine 0.90 0.69 (0.52-1.04) mg/dL Glucose 459 H* 202 H (74-99) mg/dL Calcium 9.4 9.1 (8.4-10.2) mg/dL AST 15 15 (14-36) U/L ALT 25 29 (9-52) U/L Alkaline Phosphatase 111 96 (38-126) U/L Total Protein 6.0 L 5.7 L (6.3-8.2) g/dL Albumin 3.6 3.4 L (3.5-5.0) g/dL Current Medications Generic Name Dose Route Start Last Admin Trade Name Freq PRN Reason Stop Dose Admin Aspirin 325 mg 10/06/17 09:00 10/06/17 08:24 Aspirin PO 325 mg DAILY DREW Administration Citalopram Hydrobromide 10 mg 10/06/17 09:00 10/06/17 08:21 Celexa PO 10 mg DAILY DREW Administration Clopidogrel Bisulfate 75 mg 10/06/17 09:00 10/06/17 08:22 Plavix PO 75 mg DAILY DREW Administration Donepezil HCl 10 mg 10/06/17 21:00 Aricept PO HS DREW Heparin Sodium (Porcine) 0 unit 10/05/17 13:08 10/06/17 08:25 Heparin IV 1,587 unit PER PROTOCOL PRN Administration Low PTT Protocol Diltiazem HCl 125 mg/ Sodium 125 mls @ 5 mls/hr 10/05/17 13:08 10/05/17 14:14 Chloride IV 10/06/17 13:07 Not Given .Q24H ONE 5 MG/HR Heparin Sodium/Sodium Chloride 500 mls @ 15.86 mls/hr 10/05/17 13:15 07:08 25,000 unit/ Sodium Chloride IV 14 units/kg/hr .Q24H DREW 18.5 mls/hr Protocol Titration 12 UNITS/KG/HR Magnesium Sulfate/Dextrose 1 100 mls @ 100 mls/hr 10/06/17 07:30 10/06/17 08: 20 gm/ IV Solution IVPB 10/06/17 09:29 100 mls/hr Q1H DREW Administration Insulin Aspart 0 unit 10/05/17 17:30 10/06/17 07:11 Novolog SQ 2 unit AC-TID DREW Administration Protocol Insulin Aspart 5 unit 10/06/17 07:30 10/06/17 07:11 Novolog Mix 70-30 Vial SQ 5 unit AC-BID DREW Administration Isosorbide Mononitrate 30 mg 10/06/17 09:00 10/06/17 08:21 Imdur PO 30 mg DAILY DREW Administration Losartan Potassium 100 mg 10/06/17 09:00 10/06/17 08:21 Cozaar PO 100 mg DAILY DREW Administration Meclizine HCl 25 mg 10/06/17 21:00 Antivert PO HS DREW Metformin HCl 500 mg 10/06/17 09:00 10/06/17 08:21 Glucophage PO 500 mg BID DREW Administration Metoprolol Tartrate 25 mg 10/06/17 21:00 Lopressor PO HS DREW Miscellaneous Information 1 each 10/05/17 14:23 Rx Info: Iv Contrast Was Given MISCELLANE 10/07/17 14:23 DAILY PRN Per Protocol Miscellaneous Information 1 each 10/05/17 21:55 Magnesium Per Protocol MISCELLANE DAILY PRN Per Protocol Protocol Morphine Sulfate 4 mg 10/05/17 16:02 Morphine Sulfate (Inj) IV Q5M PRN Chest Pain Nitroglycerin 0.4 mg 10/05/17 16:02 Nitrostat SUBLINGUAL Q5M PRN Chest Pain Intake and Output 10/05/17 10/06/17 10/06/17 22:59 06:59 14:59 Intake Total 200 800 387.091 Balance 200 800 387.091 Intake: Intake, IV Titration 800 269.091 Amount Heparin Sod,Pork in 0.45% 269.091 NaCl 25,000 unit In 0.45 % NaCl 1 500ml.bag @ 12 UNITS/KG/HR 15.86 mls/hr IV .Q24H DREW Rx#: [id number] Sodium Chloride 0.9% 1, 800 000 ml @ 100 mls/hr IV . Q10H STA Rx#:[id number] Oral 200 118 Other: Voiding Method Toilet Toilet Weight 63.5 kg 10/06/17 05:51 10/06/17 05:51
[2017-10-06] MEDS ORDERED: NON-FORMULARY DRUG (Aspirin Ec 81 MG) PO SCH (09:00)
[2017-10-06] MEDS ORDERED: ISOSORBIDE MONONITRATE ER 30 MG TAB.ER.24H PO SCH (09:00)
--- NOTE | 2017-10-06 09:07 | US ---
EXAMINATION TYPE: US carotid duplex BILAT DATE OF EXAM: 10/06/2017 COMPARISON: Previous study dated 06/27/2014. CLINICAL HISTORY: cva. Weakness, confusion EXAM MEASUREMENTS: RIGHT: Peak Systolic Velocity (PSV) cm/sec ----- Right CCA: 57.0 ----- Right ICA: 72.4 ----- Right ECA: 74.6 ICA/CCA ratio: 1.3 RIGHT: End Diastole cm/sec ----- Right CCA: 10.9 ----- Right ICA: 15.3 ----- Right ECA: 0.0 LEFT: Peak Systolic Velocity (PSV) cm/sec ----- Left CCA: 76.7 ----- Left ICA: 103.4 ----- Left ECA: 61.9 ICA/CCA ratio: 1.3 LEFT: End Diastole cm/sec ----- Left CCA: 10.2 ----- Left ICA: 29.6 ----- Left ECA: 0.0 VERTEBRALS (direction of flow): Right Vertebral: Antegrade Left Vertebral: Antegrade Rhythm: Arrhythmia No significant stenosis seen, left ICA tortuous IMPRESSION: I DO NOT SEE EVIDENCE OF A HEMODYNAMICALLY SIGNIFICANT STENOSIS IN EITHER CAROTID SYSTEM. Criteria for Assigning % of Stenosis / Diameter reduction (Estimation based on the indirect measurements of the internal carotid artery velocities (ICA PSV). 1. Normal (no stenosis)=ICA PSV < 125 cm/s: ratio < 2.0: ICA EDV<40 cm/s. 2. Less than 50% stenosis=ICA PSV < 125 cm/s: ratio < 2.0: ICA EDV<40 cm/s. 3. 50 to 69% stenosis=ICA PSV of 125 to 230 cm/s: ration 2.0 ? 4.0: ICA EDV 40-100 cm/s. 4. Greater than 70% stenosis to near occlusion= ICA PSV > 230 cm/s: ratio > 4.0: ICA EDV > 100 cm/s. 5. Near occlusion= ICA PSV velocities may be low or undetectable: variable ratio and ICA EDV. 6. Total occlusion=unable to detect flow.
--- NOTE | 2017-10-06 09:58 | HP ---
HISTORY AND PHYSICAL CHIEF COMPLAINT: 87-year-old white female with shortness of breath, confusion, altered mental status. HISTORY OF PRESENT ILLNESS: An 87-year-old white female with altered mental status, confusion came from the [employer] [place] showing after breakfast with her nightgown, she was maybe having mini strokes. Neurology has been consulted as well as Cardiology. She was found to be in new onset atrial fibrillation, rapid ventricular response. She is admitted at this point for cardiac and neurologic workup. HOME MEDICATIONS: Include Plavix 75 mg daily, metoprolol 25 daily, metformin 500 b.i.d., Aricept 10 mg daily, Antivert 25 q.h.s., Ecotrin 81 mg daily. Celexa 10 mg daily. NovoLog mix 70/30 35 units b.i.d. ALLERGIES: CODEINE, LATEX, LEVAQUIN, NITROFURANTOIN, PENICILLIN, DARVON, SHELLFISH, SULFA. REVIEW OF SYSTEMS: 14-point review of systems negative except for as mentioned in HPI. PAST MEDICAL HISTORY: Coronary artery disease, congestive heart failure, CVA, TIA, diabetes mellitus, hypertension, dyslipidemia, memory impairment, mild cognitive impairment, septal stroke with right-sided weakness in the past. She has some dizziness. SURGERIES: Appendectomy, cholecystectomy, heart catheterization, stent, tonsillectomy. FAMILY HISTORY: Father with CVA and TIA. Mother with CVA and TIA. from stroke. PHYSICAL EXAMINATION: Temperature 98.3, pulse 88, respirations 16 to 18, blood pressure is 120s to 150s over 80s and 90s. CARDIOVASCULAR: Irregular rhythm. LUNGS: Show rales at the bases. NECK: Supple. No lymphadenopathy. OPHTHALMOLOGICAL: Pupils equal, round, reactive to light and accommodation. HEAD: Normocephalic atraumatic. GI: Soft, nontender. EXTREMITIES: No cyanosis, clubbing, edema. BACK: Normal inspection. NEUROLOGIC: Cranial nerves are intact. PSYCH: Fair mood and affect. SKIN: Warm, dry, intact. LABS: Show BUN 19, creatinine 0.9, hemoglobin 14.8, white count 5.7. ASSESSMENT: 1. Atrial fibrillation with rapid ventricular response. 2. Transient ischemic attack versus cerebrovascular accident. 3. Atrial fibrillation. 4. Diabetes mellitus. 5. Hypertension. 6. Chronic renal disease stage III. 7. Elevated D-dimer secondary to possibly mild renal insufficiency. CT of the chest has been negative for pulmonary embolism. BNP is 1100. 8. Possible delirium, urinary tract infection, altered mental status. Admit hospital, workup for atrial fibrillation, CVA will be done. MMODL / IJN: [id number] /
[2017-10-06] MEDS: METOPROLOL TARTRATE 25 MG TAB PO SCH ×3 (10:00→21:29)
[2017-10-06 12:04] LABS: Glucose,Whole Blood 275 mg/dL (75-99)
--- NOTE | 2017-10-06 15:17 | P.CNNES ---
History of Present Illness Consult date: 10/06/17 Requesting physician: Mahin Kim Reason for Consult: TIA History of Present Illness: Patient is a pleasant 87-year-old female who is being evaluated by the neurology service on 10/06/2017 per the request of Dr. Kim for TIA. Patient is poor historian and information was gathered from staff and chart. Patient was brought to [facility] from [facility] after she was showing signs of possible stroke. Patient was admitted and found to be in new onset atrial fib with rapid ventricular response. Cardiology was consulted. Patient has history of CAD, CHF, CVA, TIA, diabetes mellitus, hypertension, dyslipidemia, and memory impairment. Patient is on Plavix, Aricept, Antivert, metoprolol, Celexa, and low-dose aspirin in the home setting. Patient is also on metformin and NovoLog for diabetes. Vital signs on admission were temperature 98.3, pulse rate 88, respiratory rate 16, blood pressure 123/95, and O2 saturation 96% on room air. Labs on admission were hemoglobin 14.8, WBCs 5.7, hematocrit 47.2, and RBCs 4.89. Patient was hyperglycemic at 459, BUN 19, creatinine 0.9. Chest x-ray showed no acute cardiopulmonary process. Computed tomography scan of the brain showed no acute process but did show remote microvascular ischemia. Carotid Doppler showed no hemodynamically significant stenosis. No lateralizing weakness is noted. At the time of my evaluation, patient is sitting up in bed eating lunch and appears to be in no acute distress. Patient currently has a sitter due to mild confusion and trying to pull at her IVs. No difficulty swallowing noted. Review of Systems REVIEW OF SYSTEMS: Otherwise unremarkable and noncontributory. Past Medical History Past Medical History: Coronary Artery Disease (CAD), Cancer, Heart Failure, CVA/ TIA, Diabetes Mellitus, Hyperlipidemia, Hypertension, Memory Impairment Additional Past Medical History / Comment(s): DIZZINESS, colon cancer, mild cognitive impairment(aricept),occipital stroke w/mild rt sided weakness, djd( spine) History of Any Multi-Drug Resistant Organisms: None Reported Past Surgical History: Appendectomy, Cholecystectomy, Heart Catheterization With Stent, Tonsillectomy Additional Past Surgical History / Comment(s): partial colon resection d/t ca Past Anesthesia/Blood Transfusion Reactions: No Reported Reaction Date of Last Stent Placement:: unk Past Psychological History: Anxiety Additional Psychological History / Comment(s): PT LIVES ALONE IN OWN HOME, USES A CANE WHEN UP, NO RECENT FALLS BUT HAS FALLEN IN PAST. STATED HAS A CLEANNG LADY COME IN TO HELP HER,OTHER THAN THAT SHE CARES FOR HERSELF. Smoking Status: Never smoker Past Alcohol Use History: Occasional Past Drug Use History: None Reported - Past Family History Father History Unknown: Yes Family Medical History: CVA/TIA Additional Family Medical History / Comment(s): PT'S DAD WAS AN ADOPTED CHILD AND SHE STATED DID'NT KNOW A LOT ABOUT HIS HX. Mother Family Medical History: CVA/TIA Additional Family Medical History / Comment(s): FROM A STROKE AT AGE 90 Medications and Allergies Home Medications Medication Instructions Recorded Confirmed Type Clopidogrel [Plavix] 75 mg PO DAILY 06/26/14 10/05/17 History Metoprolol Tartrate 25 mg PO HS 06/26/14 10/05/17 History metFORMIN HCL [Glucophage] 500 mg PO BID 06/26/14 10/05/17 History Donepezil [Aricept] 10 mg PO HS 07/23/15 10/05/17 History Meclizine [Antivert] 25 mg PO HS 07/23/15 10/05/17 History Losartan Potassium [Cozaar] 100 mg PO DAILY 30 Days tab 07/27/15 10/05/17 Rx Isosorbide Mononitrate ER [Imdur] 30 mg PO DAILY #0 tab.er.24h 12/14/15 Rx Aspirin EC [Ecotrin Low Dose] 81 mg PO DAILY 10/05/17 10/05/17 History Citalopram Hydrobromide [CeleXA] 10 mg PO DAILY 10/05/17 10/05/17 History Insuln Asp Prt/Insulin Aspart 5 unit SQ BID 10/05/17 10/05/17 History [NovoLOG MIX 70-30 VIAL] Allergies Allergy/AdvReac Type Severity Reaction Status Date / Time codeine Allergy Unknown Verified 10/05/17 13:32 latex Allergy Unknown Verified 10/05/17 13:32 levofloxacin [From Levaquin] Allergy Unknown Verified 10/05/17 13:32 nitrofurantoin Allergy Unknown Verified 10/05/17 13:32 macrocrystalline [From Macrodantin] Penicillins Allergy Unknown Verified 10/05/17 13:32 propoxyphene napsylate Allergy Unknown Verified 10/05/17 13:32 [From Darvocet-N 100] shellfish derived Allergy Unknown Verified 10/05/17 13:32 Sulfa (Sulfonamide Allergy Unknown Verified 10/05/17 13:32 Antibiotics) Physical Examination - Vital Signs Vital Signs: Vital Signs Temp Pulse Pulse Resp BP BP Pulse Ox 10/06/17 12:00 98.3 F 85 18 121/69 94 L 10/06/17 07:14 97.5 F L 94 17 169/82 94 L 10/06/17 04:00 97.0 F L 87 18 171/98 95 10/06/17 00:00 97.0 F L 93 18 137/103 98 10/05/17 20:00 97.6 F 93 18 124/62 95 10/05/17 18:00 98.0 F 20 94 L 10/05/17 16:35 98 F 91 16 156/78 95 10/05/17 15:30 97.9 F 73 16 157/83 97 Intake and Output 10/05/17 10/06/17 10/06/17 22:59 06:59 14:59 Intake Total 200 800 387.091 Output Total 350 Balance 200 800 37.091 Intake: Intake, IV Titration 800 269.091 Amount Heparin Sod,Pork in 0.45% 269.091 NaCl 25,000 unit In 0.45 % NaCl 1 500ml.bag @ 12 UNITS/KG/HR 15.86 mls/hr IV .Q24H DREW Rx#: [id number] Sodium Chloride 0.9% 1, 800 000 ml @ 100 mls/hr IV . Q10H STA Rx#:[id number] Oral 200 118 Output: Urine 350 Other: Voiding Method Toilet Toilet Toilet Weight 63.5 kg PHYSICAL EXAM: GENERAL APPEARANCE: Patient is a well-developed, female who appears to be in no acute distress. HEENT: Normocephalic, atraumatic, no facial asymmetry is seen. Neck is supple with no masses felt. CARDIOVASCULAR: Regular rate and rhythm. ABDOMEN: Nontender, nondistended. EXTREMITIES: Show no edema or clubbing. NEUROLOGICAL EXAM: Patient is awake, alert, and oriented to self only. Patient does not know where she is or why she is here. Speech and language are normal. Strength is full in all 4 extremities. Sensory exam is normal to light touch in all 4 extremities. No facial asymmetry is seen on cranial nerve testing. No tremors or seizure-like activity noted. Results - Laboratory Findings CBC and BMP: 10/06/17 05:51 10/06/17 05:51 Abnormal Lab Findings: Abnormal Labs 10/05/17 10/05/17 10/05/17 13:00 13:00 13:00 Hct 47.2 H Lymphocytes # 0.9 L INR APTT D-Dimer Chloride BUN 19 H Glucose 459 H* POC Glucose (mg/dL) Magnesium Total Creatine Kinase 27 L Total Protein 6.0 L Albumin Cholesterol LDL Cholesterol, Calc HDL Cholesterol Urine Glucose (UA) 10/05/17 10/05/17 10/05/17 13:00 13:15 15:34 Hct Lymphocytes # INR 1.2 H APTT 21.9 L D-Dimer 0.87 H Chloride BUN Glucose POC Glucose (mg/dL) 420 H Magnesium Total Creatine Kinase Total Protein Albumin Cholesterol LDL Cholesterol, Calc HDL Cholesterol Urine Glucose (UA) 4+ H 10/05/17 10/05/17 10/05/17 16:25 17:14 18:44 Hct Lymphocytes # INR APTT 48.9 H D-Dimer Chloride BUN Glucose POC Glucose (mg/dL) 331 H 253 H Magnesium Total Creatine Kinase Total Protein Albumin Cholesterol LDL Cholesterol, Calc HDL Cholesterol Urine Glucose (UA) 10/06/17 10/06/17 10/06/17 05:51 05:51 05:51 Hct Lymphocytes # INR APTT 46.0 H D-Dimer Chloride 108 H BUN Glucose 202 H POC Glucose (mg/dL) Magnesium 1.5 L Total Creatine Kinase Total Protein 5.7 L Albumin 3.4 L Cholesterol 209 H LDL Cholesterol, Calc 121 H HDL Cholesterol 66 H Urine Glucose (UA) 10/06/17 10/06/17 10/06/17 06:53 11:54 14:12 Hct Lymphocytes # INR APTT 52.5 H D-Dimer Chloride BUN Glucose POC Glucose (mg/dL) 185 H 275 H Magnesium Total Creatine Kinase Total Protein Albumin Cholesterol LDL Cholesterol, Calc HDL Cholesterol Urine Glucose (UA) Assessment and Plan Plan: Impression: 1. Atrial fibrillation with rapid ventricular response 2. Altered mental status, confusion 3. TIA possible 4. Urinary tract infection 5. Hypertension 6. Diabetes mellitus 7. Chronic renal disease Recommendations: Patient is pleasantly confused but it is unclear whether this is baseline for her. She is on Aricept in the home setting. No lateralizing weakness or facial asymmetry is seen on neurological exam. With reports of abnormal behavior in the home, it is concerning patient may have had TIA. As mentioned above, computed tomography scan reveals remote microvascular ischemia but no acute process. Carotid Dopplers were negative for any hemodynamically significant stenosis. No difficulty with speech or swallow noted. Patient moving all extremities without any lateralizing weakness noted. I recommend to continue Plavix 75 mg by mouth daily and I recommend lowering to aspirin 81 mg by mouth daily. No focal deficits on exam. If any new neurological symptoms I would recommend an MRI of the brain. I will order a fasting lipid panel and serum homocystine level. I will order an EEG. Urinary tract infection may be contributing to metabolic encephalopathy. Continue medical and cardiac workup. I will continue to follow with you. Further recommendations to follow. Thank you, Dr. Kim, for allowing me to participate in the care of your patient. Feel free to call with any questions or concerns. I performed an examination of the patient and discussed the management with the SHIPFITTERS SUPERVISOR. I have reviewed the SHIPFITTERS SUPERVISOR notes and agree with the findings and plan of care.
[2017-10-06 15:40] LABS: Cholesterol 211 mg/dL (<200); HDL Cholesterol 71 mg/dL (40-60); LDL Cholesterol,Calculated 117 mg/dL (0-99); Triglycerides 113 mg/dL (<150)
[2017-10-06] MEDS: HEPARIN SOD,PORK IN 0.45% NACL 25,000 UNIT in 0.45% NACL 1 500ML.BAG IV SCH ×2 (16:34→21:27)
[2017-10-06 16:55] LABS: Glucose,Whole Blood 171 mg/dL (75-99)
[2017-10-06] MEDS ORDERED: METOPROLOL TARTRATE 25 MG TAB PO SCH (21:00)
[2017-10-06 21:04] LABS: Glucose,Whole Blood 186 mg/dL (75-99)
[2017-10-06] MEDS: DONEPEZIL 10 MG TAB PO SCH (21:28)
[2017-10-06] MEDS: MECLIZINE 25 MG TAB PO SCH (21:28)
[2017-10-07 05:49] LABS: Glucose,Whole Blood 188 mg/dL (75-99)
[2017-10-07 06:45] LABS: Basophils % (A) 1 %; Eosinophils # (A) 0.2 k/uL (0-0.7); Eosinophils % (A) 4 %; HCT 39.8 % (34.0-46.0); HGB 13.3 gm/dL (11.4-16.0); Lymphocytes # (A) 1.6 k/uL (1.0-4.8); Lymphocytes % (A) 34 %; MCHC 33.5 g/dL (31.0-37.0); MCV 92.6 fL (80.0-100.0); Mean Platelet Volume 8.8; Monocytes # (A) 0.3 k/uL (0-1.0); Monocytes % (A) 6 %; Neutrophils # (A) 2.4 k/uL (1.3-7.7); Neutrophils % (A) 52 %; Platelet Count 156 k/uL (150-450); WBC 4.7 k/uL (3.8-10.6)
[2017-10-07] MEDS: INSULN ASP PRT/INSULIN ASPART 100 UNIT/ML 10 ML VIAL SQ SCH ×2 (07:12→17:31)
[2017-10-07] MEDS: INSULIN ASPART 100 UNIT/ML 1 ML 10 ML VIAL SQ SCH ×3 (07:12→17:31)
[2017-10-07 07:23] LABS: ALT 26 U/L (9-52); AST 20 U/L (14-36); Albumin 3.2 g/dL (3.5-5.0); Alkaline Phosphatase 91 U/L (38-126); Anion Gap 8 mmol/L; Blood Urea Nitrogen 16 mg/dL (7-17); Calcium 9.3 mg/dL (8.4-10.2); Carbon Dioxide 23 mmol/L (22-30); Chloride 108 mmol/L (98-107); Glucose 195 mg/dL (74-99); Magnesium 1.8 mg/dL (1.6-2.3); Potassium 3.4 mmol/L (3.5-5.1); Sodium 139 mmol/L (137-145); Total Bilirubin 0.5 mg/dL (0.2-1.3); Total Protein 5.5 g/dL (6.3-8.2)
[2017-10-07] MEDS ORDERED: Potassium Replacement Protocol 1 EACH MISC MISCELLANE PRN (07:35)
[2017-10-07] MEDS: MAGNESIUM SULFATE-D5W PMX 1 GM in DEXTROSE/WATER 1 100ML.BAG IVPB SCH ×2 (09:15→10:00)
[2017-10-07] MEDS: CLOPIDOGREL 75 MG TAB PO SCH (10:01)
[2017-10-07] MEDS: POTASSIUM CHLORIDE ER 20 MEQ TAB.ER PO SCH ×2 (10:01→11:42)
[2017-10-07] MEDS: METOPROLOL TARTRATE 25 MG TAB PO SCH ×3 (10:01→21:42)
[2017-10-07] MEDS: LOSARTAN 50 MG TAB PO SCH (10:01)
[2017-10-07] MEDS: ASPIRIN 325 MG TAB PO SCH (10:01)
[2017-10-07] MEDS: CITALOPRAM HYDROBROMIDE 10 MG TAB PO SCH (10:01)
[2017-10-07] MEDS: metFORMIN 500 MG TAB PO SCH ×2 (10:01→21:42)
[2017-10-07 11:48] LABS: Glucose,Whole Blood 120 mg/dL (75-99)
--- NOTE | 2017-10-07 13:02 | PN ---
PROGRESS NOTE SUBJECTIVE: This is an 87-year-old white female with TIA type symptomatology and metabolic encephalopathy, UTI type symptomatology. She has intermittent atrial fibrillation. Cardiology says she is a fall risk but does not want to put her on Eliquis. She will continue on Plavix and aspirin. Possible discharge home tomorrow. Cardiovascular S1, S2. Lungs clear. GI soft, metabolic. She appears sleepy and lethargic. ASSESSMENT: 1. New onset atrial fibrillation. 2. Hypertension. 3. Metabolic encephalopathy. 4. Gait imbalance, fall risk. Continue on current treatment and treatment for UTI and we will send her home tomorrow. Discharge her home. MMODL / IJN: [id number] /
--- NOTE | 2017-10-07 15:32 | P.PN ---
Subjective Progress Note Date: 10/07/17 Patient is a pleasant 87-year-old female who is being followed by the neurology service for possible TIA. Patient is a poor historian and information was gathered from staff and the chart. Patient is pleasantly confused but reportedly this is baseline for her. She is on Aricept in the home setting. Patient was transferred here from [facility] after showing signs of possible TIA. Patient was admitted for further workup and found to be in new onset atrial flutter with rapid ventricular response. Cardiology was consulted. Patient was also diagnosed with urinary tract infection which could be contributing to her metabolic encephalopathy. As you recall, computed tomography scan of the brain showed no acute process but did show remote microvascular ischemia. Carotid Doppler showed no hemodynamically significant stenosis. On exam, no lateralizing weakness was noted. No facial asymmetry was noted. At the time of my evaluation, patient is resting comfortably in bed and appears to be in no acute distress. Objective - Vital Signs Vital signs: Vital Signs Temp 97.6 F 10/07/17 11:39 Pulse 68 10/07/17 11:39 Resp 15 10/07/17 11:39 BP 129/79 10/07/17 11:39 Pulse Ox 95 10/07/17 11:39 Intake & Output 10/06/17 10/07/17 10/07/17 18:59 06:59 18:59 Intake Total 921.608 394.342 466.942 Output Total 350 350 Balance 571.608 394.342 116.942 Weight 62.9 kg Intake: IV 304 00.9 160 Heparin Sod,Pork in 0.45% 144 NaCl 25,000 unit In 0.45 % NaCl 1 500ml.bag @ 12 UNITS/KG/HR 15.86 mls/hr IV .Q24H DREW Rx#: [id number] Intake, IV Titration 443.608 90.342 230.942 Amount Heparin Sod,Pork in 0.45% 443.608 90.342 230.942 NaCl 25,000 unit In 0.45 % NaCl 1 500ml.bag @ 12 UNITS/KG/HR 15.86 mls/hr IV .Q24H DREW Rx#: [id number] Oral 478 236 Output: Urine 350 350 Other: Voiding Method Toilet Toilet Toilet # Voids 2 - Exam PHYSICAL EXAM: GENERAL APPEARANCE: Patient is a well-developed, female who appears to be in no acute distress. HEENT: Normocephalic, atraumatic, no facial asymmetry is seen. Neck is supple with no masses felt. CARDIOVASCULAR: Regular rate and rhythm. ABDOMEN: Nontender, nondistended. EXTREMITIES: Show no edema or clubbing. NEUROLOGICAL EXAM: Patient is awake, alert, and oriented to self only. Speech and language are normal. Strength is full in all 4 extremities. Sensory exam to light touch is normal in all 4 extremities. No facial asymmetry is seen on cranial nerve testing. No tremors or seizure-like activity is noted. - Labs CBC & Chem 7: 10/07/17 05:43 10/07/17 12:58 Labs: Abnormal Lab Results - Last 24 Hours (Table) 10/06/17 10/06/17 10/06/17 Range/Units 05:51 05:51 16:30 APTT (22.0-30.0) sec Potassium (3.5-5.1) mmol/L Chloride (98-107) mmol/L Glucose (74-99) mg/dL POC Glucose (mg/dL) 171 H (75-99) mg/dL Total Protein (6.3-8.2) g/dL Albumin (3.5-5.0) g/dL Cholesterol 211 H (<200) mg/dL LDL Cholesterol, Calc 117 H (0-99) mg/dL HDL Cholesterol 71 H (40-60) mg/dL Homocysteine 19.65 H (4.00-14.00) umol/L 10/06/17 10/07/17 10/07/17 Range/Units 20:43 05:43 05:43 APTT 64.1 H (22.0-30.0) sec Potassium 3.4 L (3.5-5.1) mmol/L Chloride 108 H (98-107) mmol/L Glucose 195 H (74-99) mg/dL POC Glucose (mg/dL) 186 H (75-99) mg/dL Total Protein 5.5 L (6.3-8.2) g/dL Albumin 3.2 L (3.5-5.0) g/dL Cholesterol (<200) mg/dL LDL Cholesterol, Calc (0-99) mg/dL HDL Cholesterol (40-60) mg/dL Homocysteine (4.00-14.00) umol/L 10/07/17 10/07/17 Range/Units 05:46 11:32 APTT (22.0-30.0) sec Potassium (3.5-5.1) mmol/L Chloride (98-107) mmol/L Glucose (74-99) mg/dL POC Glucose (mg/dL) 188 H 120 H (75-99) mg/dL Total Protein (6.3-8.2) g/dL Albumin (3.5-5.0) g/dL Cholesterol (<200) mg/dL LDL Cholesterol, Calc (0-99) mg/dL HDL Cholesterol (40-60) mg/dL Homocysteine (4.00-14.00) umol/L Microbiology - Last 24 Hours (Table) 10/05/17 15:34 Urine Culture - Final Urine,Voided Assessment and Plan Plan: Impression: 1. Atrial fibrillation with rapid ventricular response 2. Altered mental status, confusion 3. TIA possible 4. Urinary tract infection 5. Hypertension 6. Diabetes mellitus 7. Chronic renal disease Recommendations: Patient is pleasantly confused but it is unclear whether this is baseline for her. She is on Aricept in the home setting. No lateralizing weakness or facial asymmetry is seen on neurological exam. With reports of abnormal behavior in the home, it is concerning patient may have had TIA. As mentioned above, computed tomography scan reveals remote microvascular ischemia but no acute process. Carotid Dopplers were negative for any hemodynamically significant stenosis. No difficulty with speech or swallow noted. Patient moving all extremities without any lateralizing weakness noted. I recommend to continue Plavix 75 mg by mouth daily and I recommend lowering to aspirin 81 mg by mouth daily. No focal deficits on exam. If any new neurological symptoms I would recommend an MRI of the brain. Her fasting lipid panel is elevated but given her age, a statin drug may not be tolerable for her. Serum homocystine level is elevated and I will start her on Foltx daily. EEG was ordered but not yet performed. No further neurologic recommendations. Patient is stable from neurological standpoint for discharge back to her residence. I will continue to follow with you on an as-needed basis. Feel free to call with any questions or concerns. I performed an examination of the patient and discussed the management with the SALES OPERATIONS COORDINATOR. I have reviewed the SALES OPERATIONS COORDINATOR notes and agree with the findings and plan of care.
[2017-10-07 16:35] LABS: Glucose,Whole Blood 248 mg/dL (75-99)
[2017-10-07 21:09] LABS: Glucose,Whole Blood 147 mg/dL (75-99)
[2017-10-07] MEDS: DONEPEZIL 10 MG TAB PO SCH (21:42)
[2017-10-07] MEDS: MECLIZINE 25 MG TAB PO SCH (21:42)
[2017-10-08 06:27] LABS: Glucose,Whole Blood 157 mg/dL (75-99)
[2017-10-08 06:32] LABS: Basophils % (A) 0 %; Eosinophils # (A) 0.2 k/uL (0-0.7); Eosinophils % (A) 4 %; HCT 45.2 % (34.0-46.0); HGB 14.2 gm/dL (11.4-16.0); Lymphocytes # (A) 1.3 k/uL (1.0-4.8); Lymphocytes % (A) 24 %; MCH 30.1 pg (25.0-35.0); MCHC 31.3 g/dL (31.0-37.0); Mean Platelet Volume 8.5; Monocytes # (A) 0.3 k/uL (0-1.0); Monocytes % (A) 5 %; Neutrophils # (A) 3.5 k/uL (1.3-7.7); Neutrophils % (A) 63 %; Platelet Count 180 k/uL (150-450); RBC 4.71 m/uL (3.80-5.40); RDW 14.6 % (11.5-15.5); WBC 5.5 k/uL (3.8-10.6)
[2017-10-08] MEDS: INSULIN ASPART 100 UNIT/ML 1 ML 10 ML VIAL SQ SCH ×3 (07:37→16:52)
[2017-10-08] MEDS: INSULN ASP PRT/INSULIN ASPART 100 UNIT/ML 10 ML VIAL SQ SCH ×2 (07:37→22:07)
[2017-10-08] MEDS: CITALOPRAM HYDROBROMIDE 10 MG TAB PO SCH (08:12)
[2017-10-08] MEDS: ASPIRIN 325 MG TAB PO SCH (08:12)
[2017-10-08] MEDS: LOSARTAN 50 MG TAB PO SCH (08:13)
[2017-10-08] MEDS: CLOPIDOGREL 75 MG TAB PO SCH (08:13)
[2017-10-08] MEDS: METOPROLOL TARTRATE 25 MG TAB PO SCH ×3 (08:13→22:08)
[2017-10-08] MEDS: metFORMIN 500 MG TAB PO SCH ×2 (08:13→20:22)
[2017-10-08] MEDS ORDERED: CYANOCOBALAMIN-FA-PYRIDOXINE 1 EACH TAB PO SCH (12:00)
[2017-10-08 12:42] LABS: Glucose,Whole Blood 233 mg/dL (75-99)
--- NOTE | 2017-10-08 14:28 | ECHOF ---
Referral Reason:atrial fibrillation MEASUREMENTS -------- HEIGHT: 165.1 cm WEIGHT: 63.0 kg BP: 171/98 IVSd: 1.6 cm (0.6 - 1.1) LVIDd: 2.5 cm (3.9 - 5.3) LVPWd: 1.3 cm (0.6 - 1.1) IVSs: 1.9 cm LVIDs: 1.9 cm LVPWs: 1.5 cm RVIDd: 2.6 cm (< 3.3) LAESV Index (A-L): 29.93 ml/m Ao Diam: 3.7 cm (2.0 - 3.7) LA Diam: 2.5 cm (2.7 - 3.8) AV Cusp: 1.4 cm (1.5 - 2.6) MV E Eulogio: 1.46 m/s MV DecT: 649 ms MV A Eulogio: 1.97 m/s MV E/A Ratio: 0.74 RAP: 5.00 mmHg RVSP: 36.70 mmHg FINDINGS -------- Atrial fibrillation. This was a technically adequate study. The left ventricular size is normal. Overall left ventricular systolic function is normal with, an EF between 55 - 60 %. Mild asymmetric septal hypertrophy with septal thickness 1.3 - 1.5 cm. The right ventricle is normal in size and function. LA is midly dilated 29-33ml/m2. The right atrium is normal in size. There is moderate aortic valve sclerosis. There is no evidence of aortic regurgitation. There is no evidence of aortic stenosis. The mitral valve leaflets are mildly thickened. Moderate mitral annular calcification present. Mi ld mitral regurgitation is present. Mild mitral stenosis. Mild tricuspid regurgitation present. There is borderline pulmonary hypertension. The right ventr icular systolic pressure, as measured by Doppler, is 36.70mmHg. Trace/mild (physiologic) pulmonic regurgitation. The aortic root size is normal. IVC Not well visulized. The pericardium is normal. There is no pericardial effusion. CONCLUSIONS -------- 1. Atrial fibrillation. 2. This was a technically adequate study. 3. The left ventricular size is normal. 4. Overall left ventricular systolic function is normal with, an EF between 55 - 60 %. 5. Mild asymmetric septal hypertrophy with septal thickness 1.3 - 1.5 cm. 6. LA is midly dilated 29-33ml/m2. 7. There is moderate aortic valve sclerosis. 8. The mitral valve leaflets are mildly thickened. 9. Moderate mitral annular calcification present. 10. Mild mitral regurgitation is present. 11. Mild mitral stenosis. 12. Mild tricuspid regurgitation present. 13. There is borderline pulmonary hypertension. 14. The right ventricular systolic pressure, as measured by Doppler, is 36.70mmHg. 15. Trace/mild (physiologic) pulmonic regurgitation. 16. The aortic root size is normal. 17. IVC Not well visulized. 18. There is no pericardial effusion. TURKISH RUBBER: Angel Vera RDCS
[2017-10-08 16:28] LABS: Glucose,Whole Blood 154 mg/dL (75-99)
--- NOTE | 2017-10-08 17:54 | EEG ---
ELECTROENCEPHALOGRAM REPORT DATE OF SERVICE: 10/08/2017. REASON FOR TESTING: Altered mental status and transient ischemic attack. DESCRIPTION OF THE PROCEDURE: This EEG was performed using a 21 channel digital electroencephalograph, following international 10-20 system. DESCRIPTION OF THE RECORDING: From the beginning of the tracing, and with patient's eyes closed, the background rhythm was mostly consisting of 6-7 hertz theta frequency in the posterior occipital leads. No obvious asymmetry is seen. Frequent muscle artifacts and occasional movement artifacts are seen. Photic stimulation was performed with a minimal driving response seen. No pathological waves were elicited. Hyperventilation was not performed. The patient remains awake throughout the tracing. No epileptiform discharges were seen. INTERPRETATION: This awake EEG is abnormal due to presence of generalized slowing of the background rhythm, mostly in the theta range. This is consistent with mild encephalopathy. No epileptiform discharges were seen. The absence of epileptiform discharges does not rule out the diagnosis of epilepsy, therefore clinical correlation is recommended. MMCARLL / IJN: [id number] /
[2017-10-08] MEDS: DONEPEZIL 10 MG TAB PO SCH (20:22)
[2017-10-08] MEDS: MECLIZINE 25 MG TAB PO SCH (20:22)
[2017-10-08 21:11] LABS: Glucose,Whole Blood 191 mg/dL (75-99)
--- NOTE | 2017-10-08 23:16 | PN ---
PROGRESS NOTE SUBJECTIVE: 87-year-old white female who is admitted for metabolic encephalopathy and possible TIA. EEG shows no signs of seizure. She is placed on vitamin. Continue on Plavix and aspirin. She will be discharged home in the morning. Carotids, neurologic workup was negative. CT scan negative. Cardiovascular S1-S2. Lungs clear. GI soft. Hematology negative Homans. ASSESSMENT: 1. Transient ischemic attack. 2. Metabolic encephalopathy. 3. Questionable urinary tract infection. 4. Mild dehydration. 5. Atrial fibrillation with rapid ventricular response. 6. Hypertension. Continue Plavix and aspirin. Eliquis is not a good choice as the patient is a fall risk per Cardiology. The patient will be sent home in the morning. MMODL / IJN: [id number] /
[2017-10-09 02:14] LABS: Glucose,Whole Blood 176 mg/dL (75-99)
[2017-10-09 05:36] LABS: Glucose,Whole Blood 188 mg/dL (75-99)
[2017-10-09 06:24] LABS: Basophils % (A) 1 %; Eosinophils # (A) 0.2 k/uL (0-0.7); Eosinophils % (A) 4 %; HCT 45.7 % (34.0-46.0); HGB 14.8 gm/dL (11.4-16.0); Lymphocytes # (A) 1.4 k/uL (1.0-4.8); Lymphocytes % (A) 24 %; MCH 31.3 pg (25.0-35.0); MCHC 32.3 g/dL (31.0-37.0); MCV 96.8 fL (80.0-100.0); Mean Platelet Volume 8.3; Monocytes # (A) 0.5 k/uL (0-1.0); Monocytes % (A) 8 %; Neutrophils # (A) 3.3 k/uL (1.3-7.7); Neutrophils % (A) 59 %; Platelet Count 155 k/uL (150-450); RBC 4.72 m/uL (3.80-5.40); RDW 14.9 % (11.5-15.5); WBC 5.6 k/uL (3.8-10.6)
[2017-10-09 06:39] LABS: Anion Gap 11 mmol/L; Blood Urea Nitrogen 27 mg/dL (7-17); Calcium 9.2 mg/dL (8.4-10.2); Carbon Dioxide 19 mmol/L (22-30); Chloride 105 mmol/L (98-107); Glucose 191 mg/dL (74-99); Potassium 4.6 mmol/L (3.5-5.1); Sodium 135 mmol/L (137-145)
[2017-10-09] MEDS: INSULIN ASPART 100 UNIT/ML 1 ML 10 ML VIAL SQ SCH (07:34)
[2017-10-09] MEDS: INSULN ASP PRT/INSULIN ASPART 100 UNIT/ML 10 ML VIAL SQ SCH (07:34)
[2017-10-09] MEDS: CLOPIDOGREL 75 MG TAB PO SCH (08:59)
[2017-10-09] MEDS: LOSARTAN 50 MG TAB PO SCH (08:59)
[2017-10-09] MEDS: ASPIRIN 325 MG TAB PO SCH (08:59)
[2017-10-09] MEDS: METOPROLOL TARTRATE 25 MG TAB PO SCH (09:00)
[2017-10-09] MEDS: CITALOPRAM HYDROBROMIDE 10 MG TAB PO SCH (09:00)
[2017-10-09] MEDS: metFORMIN 500 MG TAB PO SCH (09:00)
[2017-10-09 10:25] VITALS: BP 141/105; PULSE 102; RESP 16; TEMP 97
--- NOTE | 2017-12-02 07:36 | DS ---
DISCHARGE SUMMARY DISCHARGE MEDICATIONS: Plavix 75 mg daily, metformin 500 mg b.i.d., Metoprolol 25 q.h.s., Antivert 25 q.h.s., Aricept 10 q.h.s., Cozaar 100 mg daily, Imdur 30 mg daily, Celexa 10 mg daily, Ecotrin 81 mg daily. NovoLog 70/30 5 units subcu b.i.d. CONDITION: Stable. PROGNOSIS: Guarded. Ambulate as tolerated. DISCHARGE DIAGNOSES: 1. Insulin-dependent diabetes mellitus. 2. Dementia. 3. Hypertension. 4. Atypical chest pain. CT of the chest was done. 5. Dyslipidemia. 6. Memory impairment. Patient was admitted and seen by Cardiology for atypical chest pain. She had atrial fibrillation with rapid ventricular response, adult onset diabetes mellitus, hypertension, dyslipidemia. Medications were continued or adjusted per Cardiology. A chest CT was negative. Her metoprolol was increased. Her blood pressure was monitored. Stroke modification of medication medicines given, Eliquis 2.5 b.i.d. was started for atrial fibrillation. Follow up as an outpatient. MMODL / IJN: [id number] /
== END 2017-10-09 11:47 | disposition home or self-care (01) | DRG 308 ==
LOC: EC 12:54 → 6SEL 16:02
PROVIDERS: ADMIT Family Medicine; ATTEND Family Medicine
DX: I48.0 Paroxysmal atrial fibrillation (principal); G93.41 Metabolic encephalopathy; E11.22 Type 2 diabetes mellitus with diabetic chronic kidney disease; E11.65 Type 2 diabetes mellitus with hyperglycemia; G45.9 Transient cerebral ischemic attack, unspecified; F05 Delirium due to known physiological condition; I13.0 Hypertensive heart and chronic kidney disease with heart failure and stage 1 through stage 4 chronic kidney disease, or unspecified chronic kidney disease; I69.351 Hemiplegia and hemiparesis following cerebral infarction affecting right dominant side; N39.0 Urinary tract infection, site not specified; E86.0 Dehydration; I50.9 Heart failure, unspecified; E78.5 Hyperlipidemia, unspecified; I25.10 Atherosclerotic heart disease of native coronary artery without angina pectoris; N18.3 Chronic kidney disease, stage 3 (moderate); R79.1 Abnormal coagulation profile; F41.9 Anxiety disorder, unspecified; G31.84 Mild cognitive impairment of uncertain or unknown etiology; M47.9 Spondylosis, unspecified; R26.89 Other abnormalities of gait and mobility; Z79.02 Long term (current) use of antithrombotics/antiplatelets; Z79.4 Long term (current) use of insulin; Z79.899 Other long term (current) drug therapy; Z79.82 Long term (current) use of aspirin; Z88.2 Allergy status to sulfonamides; Z88.1 Allergy status to other antibiotic agents; Z91.040 Latex allergy status; Z88.5 Allergy status to narcotic agent; Z88.0 Allergy status to penicillin; Z91.013 Allergy to seafood; Z85.038 Personal history of other malignant neoplasm of large intestine; Z95.5 Presence of coronary angioplasty implant and graft; Z91.81 History of falling; Z90.49 Acquired absence of other specified parts of digestive tract
CPT/HCPCS: 36415; 70450; 71046; 71275; 80048; 80053; 80061; 81003; 82550; 82553; 83090; 83735; 83880; 84100; 84132; 84443; 84484; 85025; 85379; 85610; 85730; 87086; 93005; 93306; 93880; 95819; 96361; 96365; 96366; 96376; 99285

== ENCOUNTER 2017-10-20 16:21 | Inpatient (IN) | payer MEDICARE ==
[2017-10-20 16:41] LABS: Glucose,Whole Blood 362 mg/dL (75-99)
--- NOTE | 2017-10-20 16:48 | ED ---
General Adult HPI - General Chief complaint: Altered Mental Status Stated complaint: Altered Mental Status Time Seen by Provider: 10/20/17 16:25 Source: EMS, RN notes reviewed, old records reviewed Mode of arrival: EMS Limitations: altered mental status, physical limitation - History of Present Illness Initial comments: -year-old female presenting for confusion and fall. Patient was recently admitted to the hospital with similar episode. She was fully evaluated at that time. She does have baseline dementia, according to EMS she is alert and oriented 2 at baseline. She is alert and oriented 1 at the time my evaluation. She is unable to contribute to the history. She has no specific pain complaints. According to EMS there was a near fall, she was caught by a bystander. No injury noted by EMS. Additional history obtained from the medical record. - Related Data Home Medications Medication Instructions Recorded Confirmed Clopidogrel [Plavix] 75 mg PO DAILY 06/26/14 10/05/17 Metoprolol Tartrate 25 mg PO HS 06/26/14 10/05/17 metFORMIN HCL [Glucophage] 500 mg PO BID 06/26/14 10/05/17 Donepezil [Aricept] 10 mg PO HS 07/23/15 10/05/17 Meclizine [Antivert] 25 mg PO HS 07/23/15 10/05/17 Aspirin EC [Ecotrin Low Dose] 81 mg PO DAILY 10/05/17 10/05/17 Citalopram Hydrobromide [CeleXA] 10 mg PO DAILY 10/05/17 10/05/17 Insuln Asp Prt/Insulin Aspart 5 unit SQ BID 10/05/17 10/05/17 [NovoLOG MIX 70-30 VIAL] Previous Rx's Medication Instructions Recorded Losartan Potassium [Cozaar] 100 mg PO DAILY 30 Days tab 07/27/15 Isosorbide Mononitrate ER [Imdur] 30 mg PO DAILY #0 tab.er.24h 12/14/15 Allergies Allergy/AdvReac Type Severity Reaction Status Date / Time codeine Allergy Unknown Verified 10/20/17 16:27 latex Allergy Unknown Verified 10/20/17 16:27 levofloxacin [From Levaquin] Allergy Unknown Verified 10/20/17 16:27 nitrofurantoin Allergy Unknown Verified 10/20/17 16:27 macrocrystalline [From Macrodantin] Penicillins Allergy Unknown Verified 10/20/17 16:27 propoxyphene napsylate Allergy Unknown Verified 10/20/17 16:27 [From Darvocet-N 100] shellfish derived Allergy Unknown Verified 10/20/17 16:27 Sulfa (Sulfonamide Allergy Unknown Verified 10/20/17 16:27 Antibiotics) Review of Systems ROS Statement: Those systems with pertinent positive or pertinent negative responses have been documented in the HPI. ROS Other: All systems not noted in ROS Statement are negative. Past Medical History Past Medical History: Coronary Artery Disease (CAD), Cancer, Heart Failure, CVA/ TIA, Dementia, Diabetes Mellitus, Hyperlipidemia, Hypertension, Memory Impairment Additional Past Medical History / Comment(s): DIZZINESS, colon cancer, mild cognitive impairment(aricept),occipital stroke w/mild rt sided weakness, djd( spine) History of Any Multi-Drug Resistant Organisms: None Reported Past Surgical History: Appendectomy, Cholecystectomy, Heart Catheterization With Stent, Tonsillectomy Additional Past Surgical History / Comment(s): partial colon resection d/t ca Past Anesthesia/Blood Transfusion Reactions: No Reported Reaction Date of Last Stent Placement:: unk Past Psychological History: Anxiety Smoking Status: Never smoker Past Alcohol Use History: Occasional Past Drug Use History: None Reported - Past Family History Father History Unknown: Yes Family Medical History: CVA/TIA Additional Family Medical History / Comment(s): PT'S DAD WAS AN ADOPTED CHILD AND SHE STATED DID'NT KNOW A LOT ABOUT HIS HX. Mother Family Medical History: CVA/TIA Additional Family Medical History / Comment(s): FROM A STROKE AT AGE 90 General Exam Limitations: altered mental status, physical limitation General appearance: alert, in no apparent distress Head exam: Present: atraumatic, normocephalic Eye exam: Present: normal appearance. Absent: PERRL (3 mm reactive pupil on the left, 2 mm reactive pupil on the right.) Neck exam: Present: normal inspection. Absent: tenderness, meningismus Respiratory exam: Present: normal lung sounds bilaterally. Absent: respiratory distress Cardiovascular Exam: Present: regular rate, normal rhythm GI/Abdominal exam: Present: soft, guarding. Absent: distended, tenderness Extremities exam: Present: normal inspection, normal capillary refill. Absent: pedal edema Neurological exam: Present: alert. Absent: oriented X3, motor sensory deficit Skin exam: Present: warm, dry, intact, cyanosis. Absent: diaphoretic Course Vital Signs 10/20/17 16:24 Temperature 98.9 F Pulse Rate 77 Respiratory 16 Rate Blood Pressure 170/88 O2 Sat by Pulse 96 Oximetry - Reevaluation(s) Reevaluation #1: 10/20/17 18:25 Additional history obtained from the patient's daughter, she was well at lunchtime today in her normal mental status. This evening she was found in the hallway naked, acutely delirious. EKG Findings - EKG Comments: EKG Findings:: normal sinus rhythm with sinus arrhythmia, ventricular rate 73, NE interval 188, QRS duration 70, QTC 449, there is left axis deviation, no signs of acute ischemia. Medical Decision Making - Medical Decision Making 79-year-old female presenting with worsening confusion and altered mental status. CT is obtained, there is a white matter change in the left occipital region consistent with infarct which is stable from previous CT. Chest x-ray negative for focal pneumonia. White blood cell count 4.6 which is normal, stable hemoglobin at 13.5, UA is significant for 20 white blood cells and occasional bacteria. Urine culture will be obtained. This does represent bacteria, however doubt this is contributing to the patient's mental status. We will await culture results as patient has multiple antibiotic ALLERGIES. Patient currently stays in assisted living facility, she does not have 24-hour care. He states family is concerned that she is not safe to return to her current living situation. Patient will be admitted for further evaluation and treatment. - Lab Data Result diagrams: 10/20/17 16:50 10/20/17 16:50 Lab Results 10/20/17 10/20/17 10/20/17 Range/Units 16:29 16:50 16:50 WBC 4.6 (3.8-10.6) k/uL RBC 4.39 (3.80-5.40) m/uL Hgb 13.5 (11.4-16.0) gm/dL Hct 42.2 (34.0-46.0) % MCV 96.2 (80.0-100.0) fL MCH 30.8 (25.0-35.0) pg MCHC 32.0 (31.0-37.0) g/dL RDW 13.3 (11.5-15.5) % Plt Count 170 (150-450) k/uL Neutrophils % 72 % Lymphocytes % 18 % Monocytes % 5 % Eosinophils % 1 % Basophils % 1 % Neutrophils # 3.3 (1.3-7.7) k/uL Lymphocytes # 0.8 L (1.0-4.8) k/uL Monocytes # 0.2 (0-1.0) k/uL Eosinophils # 0.1 (0-0.7) k/uL Basophils # 0.0 (0-0.2) k/uL PT (9.0-12.0) sec INR (<1.2) APTT (22.0-30.0) sec Sodium 138 (137-145) mmol/L Potassium 4.8 (3.5-5.1) mmol/L Chloride 107 (98-107) mmol/L Carbon Dioxide 17 L (22-30) mmol/L Anion Gap 14 mmol/L BUN 21 H (7-17) mg/dL Creatinine 1.03 (0.52-1.04) mg/dL Est GFR (MDRD) Af Amer >60 (>60 ml/min/1.73 sqM) Est GFR (MDRD) Non-Af 51 (>60 ml/min/1.73 sqM) Glucose 377 H (74-99) mg/dL POC Glucose (mg/dL) 362 H (75-99) mg/dL POC Glu Button Grader ID Aparna Bello Calcium 9.2 (8.4-10.2) mg/dL Total Bilirubin 0.5 (0.2-1.3) mg/dL AST 23 (14-36) U/L ALT 24 (9-52) U/L Alkaline Phosphatase 94 (38-126) U/L Total Protein 6.4 (6.3-8.2) g/dL Albumin 3.7 (3.5-5.0) g/dL Urine Color Urine Appearance (Clear) Urine pH (5.0-8.0) Ur Specific Nelson (1.001-1.035) Urine Protein (Negative) Urine Glucose (UA) (Negative) Urine Ketones (Negative) Urine Blood (Negative) Urine Nitrite (Negative) Urine Bilirubin (Negative) Urine Urobilinogen (<2.0) mg/dL Ur Leukocyte Esterase (Negative) Urine RBC (0-5) /hpf Urine WBC (0-5) /hpf Ur Squamous Epith Cells (0-4) /hpf Urine Bacteria (None) /hpf Hyaline Casts (0-2) /lpf Urine Mucus (None) /hpf 10/20/17 10/20/17 Range/Units 16:50 17:32 WBC (3.8-10.6) k/uL RBC (3.80-5.40) m/uL Hgb (11.4-16.0) gm/dL Hct (34.0-46.0) % MCV (80.0-100.0) fL MCH (25.0-35.0) pg MCHC (31.0-37.0) g/dL RDW (11.5-15.5) % Plt Count (150-450) k/uL Neutrophils % % Lymphocytes % % Monocytes % % Eosinophils % % Basophils % % Neutrophils # (1.3-7.7) k/uL Lymphocytes # (1.0-4.8) k/uL Monocytes # (0-1.0) k/uL Eosinophils # (0-0.7) k/uL Basophils # (0-0.2) k/uL PT 11.4 (9.0-12.0) sec INR 1.2 H (<1.2) APTT 22.0 (22.0-30.0) sec Sodium (137-145) mmol/L Potassium (3.5-5.1) mmol/L Chloride (98-107) mmol/L Carbon Dioxide (22-30) mmol/L Anion Gap mmol/L BUN (7-17) mg/dL Creatinine (0.52-1.04) mg/dL Est GFR (MDRD) Af Amer (>60 ml/min/1.73 sqM) Est GFR (MDRD) Non-Af (>60 ml/min/1.73 sqM) Glucose (74-99) mg/dL POC Glucose (mg/dL) (75-99) mg/dL POC Glu Button Grader ID Calcium (8.4-10.2) mg/dL Total Bilirubin (0.2-1.3) mg/dL AST (14-36) U/L ALT (9-52) U/L Alkaline Phosphatase (38-126) U/L Total Protein (6.3-8.2) g/dL Albumin (3.5-5.0) g/dL Urine Color Yellow Urine Appearance Clear (Clear) Urine pH 5.5 (5.0-8.0) Ur Specific Nelson 1.019 (1.001-1.035) Urine Protein Trace H (Negative) Urine Glucose (UA) 4+ H (Negative) Urine Ketones Negative (Negative) Urine Blood Negative (Negative) Urine Nitrite Negative (Negative) Urine Bilirubin Negative (Negative) Urine Urobilinogen <2.0 (<2.0) mg/dL Ur Leukocyte Esterase Moderate H (Negative) Urine RBC 3 (0-5) /hpf Urine WBC 20 H (0-5) /hpf Ur Squamous Epith Cells <1 (0-4) /hpf Urine Bacteria Occasional H (None) /hpf Hyaline Casts 1 (0-2) /lpf Urine Mucus Rare H (None) /hpf Disposition Clinical Impression: Dementia, Altered mental status Disposition: ADMITTED IP TO THIS [facility] Condition: Stable Referrals: None,Stated [REFERRING] - 1-2 days Decision to Admit Reason: Admit from EC Decision Date: 10/20/17 Decision Time: 18:27
[2017-10-20 17:00] LABS: Basophils % (A) 1 %; Eosinophils # (A) 0.1 k/uL (0-0.7); Eosinophils % (A) 1 %; HCT 42.2 % (34.0-46.0); HGB 13.5 gm/dL (11.4-16.0); Lymphocytes # (A) 0.8 k/uL (1.0-4.8); Lymphocytes % (A) 18 %; MCH 30.8 pg (25.0-35.0); MCV 96.2 fL (80.0-100.0); Mean Platelet Volume 7.5; Monocytes # (A) 0.2 k/uL (0-1.0); Monocytes % (A) 5 %; Neutrophils # (A) 3.3 k/uL (1.3-7.7); Neutrophils % (A) 72 %; Platelet Count 170 k/uL (150-450); RBC 4.39 m/uL (3.80-5.40); RDW 13.3 % (11.5-15.5); WBC 4.6 k/uL (3.8-10.6)
[2017-10-20 17:08] LABS: Appearance,Urine Clear (Clear); Bacteria,Urine Occasional /hpf; Bilirubin,Urine Negative (Negative); Blood,Urine Negative (Negative); Color,Urine Yellow; Glucose,Urine (UA) 4+ (Negative); Hyaline Casts,Urine 1 /lpf (0-2); Ketones,Urine Negative (Negative); Leukocyte Esterase,Urine Moderate (Negative); Mucus,Urine Rare /hpf; Nitrite,Urine Negative (Negative); PH, Urine 5.5 (5.0-8.0); Protein,Urine Trace (Negative); RBC,Urine 3 /hpf (0-5); Specific Gravity,Urine 1.019 (1.001-1.035); Squamous Epithelial Cell,Urine <1 /hpf (0-4); Urobilinogen,Urine <2.0 mg/dL (<2.0); WBC,Urine 20 /hpf (0-5)
--- NOTE | 2017-10-20 17:20 | CT ---
EXAMINATION TYPE: CT brain wo con DATE OF EXAM: 10/20/2017 COMPARISON: 10/05/2017 INDICATION: AMS, elevated blood sugar DLP: 923.9 mGycm, Automated exposure control for dose reduction was used. CONTRAST: None CT of the brain is performed utilizing 3 mm thick sections through the posterior fossa and 3 mm thick sections through the remaining calvarium. Study is performed within 24 hours of arrival to the hosp ital. No abnormal hyperdensity is present to suggest an acute intracranial hemorrhage. No mass lesion is evident. No acute infarcts are evident. There is likely an old left occipital lobe infarct. This may be a subc ortical infarct white matter ischemic changes. This was present previously. Periventricular white mat ter changes are present likely on the basis of chronic white matter ischemic changes. Ventricles and sulci are prominent for the patient age. Paranasal sinuses and mastoid air cells within the [id number] are clear. IMPRESSIONS: 1. Atrophy with periventricular white matter ischemic changes. 2. White matter changes versus old left occipital lobe infarct or subcortical infarct. These findings are stable from 10/05/2017
[2017-10-20 17:21] LABS: ALT 24 U/L (9-52); AST 23 U/L (14-36); Albumin 3.7 g/dL (3.5-5.0); Alkaline Phosphatase 94 U/L (38-126); Anion Gap 14 mmol/L; Blood Urea Nitrogen 21 mg/dL (7-17); Calcium 9.2 mg/dL (8.4-10.2); Carbon Dioxide 17 mmol/L (22-30); Chloride 107 mmol/L (98-107); Glucose 377 mg/dL (74-99); Sodium 138 mmol/L (137-145); Total Bilirubin 0.5 mg/dL (0.2-1.3); Total Protein 6.4 g/dL (6.3-8.2)
--- NOTE | 2017-10-20 17:21 | XR ---
EXAMINATION TYPE: XR chest 2V DATE OF EXAM: 10/20/2017 COMPARISON: 10/05/2017 INDICATION: Altered mental status TECHNIQUE: Frontal and lateral views of the chest are obtained. FINDINGS: The heart size is normal. The pulmonary vasculature is normal. The lungs are clear. IMPRESSION: 1. No acute pulmonary process.
[2017-10-20 17:22] LABS: Potassium 4.8 mmol/L (3.5-5.1)
[2017-10-20 18:01] LABS: INR 1.2 (<1.2); Prothrombin Time 11.4 sec (9.0-12.0)
[2017-10-20] MEDS ORDERED: ACETAMINOPHEN TAB 325 MG TAB PO PRN (18:21)
[2017-10-20] MEDS ORDERED: NALOXONE 0.4 MG/ML 1 ML VIAL IV PRN (18:21)
[2017-10-20 18:27] LABS: Creatine Kinase 31 U/L (30-135)
[2017-10-20 18:38] LABS: Creatine Kinase MB 0.5 ng/mL (0.0-2.4); Troponin I <0.012 ng/mL (0.000-0.034)
[2017-10-20 19:46] LABS: Glucose,Whole Blood 234 mg/dL (75-99)
[2017-10-20] MEDS: metFORMIN 500 MG TAB PO SCH (21:51)
[2017-10-20] MEDS: TEMAZEPAM 15 MG CAP PO SCH (21:51)
[2017-10-20] MEDS: METOPROLOL TARTRATE 25 MG TAB PO SCH (21:51)
[2017-10-20] MEDS: MECLIZINE 25 MG TAB PO SCH (21:52)
[2017-10-20] MEDS: DONEPEZIL 10 MG TAB PO SCH (21:52)
[2017-10-20] MEDS: INSULN ASP PRT/INSULIN ASPART 100 UNIT/ML 10 ML VIAL SQ SCH (21:52)
[2017-10-20] MEDS: CITALOPRAM HYDROBROMIDE 10 MG TAB PO SCH (21:52)
[2017-10-21 06:58] LABS: Glucose,Whole Blood 92 mg/dL (75-99)
[2017-10-21] MEDS: LOSARTAN 50 MG TAB PO SCH (09:08)
[2017-10-21] MEDS: ASPIRIN 81 MG PO SCH (09:08)
[2017-10-21] MEDS: metFORMIN 500 MG TAB PO SCH ×2 (09:08→21:14)
[2017-10-21] MEDS: CLOPIDOGREL 75 MG TAB PO SCH (09:08)
[2017-10-21] MEDS: ISOSORBIDE MONONITRATE ER 30 MG TAB.ER.24H PO SCH (09:08)
--- NOTE | 2017-10-21 09:48 | P.CNNES ---
History of Present Illness Consult date: 10/21/17 Reason for Consult: Patient with altered mental status and delerium. History of Present Illness: this patient is a 87-year-old right-handed white female who has a long-standing history of underlying dementia. She has been residing in a assisted living facility and apparently had an episode of acute delirium and near syncope. Patient was apparently walking and had a near passing out spell. She was also noted to be much more confused and delirious at home. She is staying in a assisted living facility and apparently was walking around without clothes. She was brought into the emergency room where she continued to show signs of acute delirium and confusion. She has been taking Aricept on a regular basis for treatment of her underlying dementia. She is currently on Aricept 10 mg daily. Her daughter has been very concerned that the patient is unable to stay in her current assisted living facility due to her recent falls. She was just hospitalized on 10/05/2017 with similar episode of worsening confusion. The patient underwent a computed tomography scan of the brain at that time which revealed degenerative nonspecific white matter changes. There was evidence of remote ischemia. Patient had a repeat CAT scan of the brain yesterday which revealed evidence of old left occipital stroke. No other acute changes were noted. Her urine analysis revealed mild urinary tract infection. Patient was admitted to the hospital for further evaluation. She is still doing fairly well and seems to be able to answer simple questions. She is still quite confused. She repeats herself during examination. She denies any headache or focal weakness. Would consider reevaluation for possibility of mild urinary tract infection causing her recent acute delirium. Would recommend to continue her on Aricept at this time. Recommend social work consultation for possible discharge planning an ECF placement if necessary. Would also recommend physical therapy evaluation for the patient to assess her gait. Her overall prognosis at this time remains very guarded. We will continue to closely monitor her during this admission. Neurology is now been consulted for further evaluation and recommendations. Review of Systems Constitutional: Denies chills, Denies fever Eyes: denies blurred vision, denies pain Ears, nose, mouth and throat: Denies headache, Denies sore throat Cardiovascular: Denies chest pain, Denies shortness of breath Respiratory: Denies cough Gastrointestinal: Denies abdominal pain, Denies diarrhea, Denies nausea, Denies vomiting Genitourinary: Denies dysuria, Denies hematuria Musculoskeletal: Denies myalgias Integumentary: Denies pruritus, Denies rash Neurological: Reports change in mentation, Reports confusion, Reports memory loss, Denies numbness, Denies weakness Psychiatric: Reports confusion, Reports memory loss, Reports sleep disturbances , Denies anxiety, Denies depression Endocrine: Denies fatigue, Denies weight change Past Medical History Past Medical History: Coronary Artery Disease (CAD), Cancer, Heart Failure, CVA/ TIA, Dementia, Diabetes Mellitus, Hyperlipidemia, Hypertension, Memory Impairment Additional Past Medical History / Comment(s): DIZZINESS, colon cancer, mild cognitive impairment(aricept),occipital stroke w/mild rt sided weakness, djd( spine) History of Any Multi-Drug Resistant Organisms: None Reported Past Surgical History: Appendectomy, Cholecystectomy, Heart Catheterization With Stent, Tonsillectomy Additional Past Surgical History / Comment(s): partial colon resection d/t ca, rods left leg from fracture. Past Anesthesia/Blood Transfusion Reactions: No Reported Reaction Date of Last Stent Placement:: 2001 Past Psychological History: Anxiety Additional Psychological History / Comment(s): Lives at [facility] Smoking Status: Never smoker Past Alcohol Use History: Occasional Past Drug Use History: None Reported - Past Family History Father History Unknown: Yes Family Medical History: CVA/TIA Additional Family Medical History / Comment(s): PT'S DAD WAS AN ADOPTED CHILD AND SHE STATED DID'NT KNOW A LOT ABOUT HIS HX. Mother Family Medical History: CVA/TIA Additional Family Medical History / Comment(s): FROM A STROKE AT AGE 90 Medications and Allergies Home Medications Medication Instructions Recorded Confirmed Type Clopidogrel [Plavix] 75 mg PO DAILY 06/26/14 10/20/17 History Metoprolol Tartrate 25 mg PO HS 06/26/14 10/20/17 History metFORMIN HCL [Glucophage] 500 mg PO BID 06/26/14 10/20/17 History Donepezil [Aricept] 10 mg PO HS 07/23/15 10/20/17 History Meclizine [Antivert] 25 mg PO HS 07/23/15 10/20/17 History Losartan Potassium [Cozaar] 100 mg PO DAILY 30 Days tab 07/27/15 10/20/17 Rx Isosorbide Mononitrate ER [Imdur] 30 mg PO DAILY #0 tab.er.24h 12/14/15 Rx Aspirin EC [Ecotrin Low Dose] 81 mg PO DAILY 10/05/17 10/20/17 History Citalopram Hydrobromide [CeleXA] 10 mg PO DAILY 10/05/17 10/20/17 History Insuln Asp Prt/Insulin Aspart 5 unit SQ BID 10/05/17 10/20/17 History [NovoLOG MIX 70-30 VIAL] Allergies Allergy/AdvReac Type Severity Reaction Status Date / Time codeine Allergy Unknown Verified 10/20/17 16:27 latex Allergy Unknown Verified 10/20/17 16:27 levofloxacin [From Levaquin] Allergy Unknown Verified 10/20/17 16:27 nitrofurantoin Allergy Unknown Verified 10/20/17 16:27 macrocrystalline [From Macrodantin] Penicillins Allergy Unknown Verified 10/20/17 16:27 propoxyphene napsylate Allergy Unknown Verified 10/20/17 16:27 [From Darvocet-N 100] shellfish derived Allergy Unknown Verified 10/20/17 16:27 Sulfa (Sulfonamide Allergy Unknown Verified 10/20/17 16:27 Antibiotics) Physical Examination - Vital Signs Vital Signs: Vital Signs Temp Pulse Pulse Resp BP BP Pulse Ox 10/21/17 08:00 98.3 F 75 18 180/98 94 L 10/21/17 07:14 96 10/21/17 04:00 80 16 10/21/17 00:00 16 10/20/17 20:00 97.7 F 80 16 138/83 96 10/20/17 19:15 97.6 F 83 16 144/81 96 10/20/17 18:22 74 18 138/64 10/20/17 16:24 98.9 F 77 16 170/88 96 Intake and Output 10/20/17 10/21/17 10/21/17 22:59 06:59 14:59 Intake Total 500 250 Balance 500 250 Intake: Oral 500 250 Other: Voiding Method Bedside Commode Bedside Commode # Voids 1 1 Weight 63.503 kg 63.503 kg - Constitutional General appearance: average body habitus, cooperative - EENT EENT: PERRL, mucous membranes moist - Respiratory Respiratory: lungs clear, normal breath sounds - Cardiovascular Cardiovascular: regular rate, normal S1, normal S2 Extremities: no peripheral edema bilaterally - Gastrointestinal Gastrointestinal: normoactive bowel sounds - Integumentary Integumentary: normal - Neurologic Cranial nerve examination: PERRL, EOMI, V1/V2/V3 grossly intact, face symmetric , tongue midline, intact gag reflex, intact corneal reflex, normal palatal elevation Speech examination: intact Sensorimotor examination: intact Motor examination - right side: 4/5: biceps, triceps, wrist flexion, wrist extension, fish roe processor, hip flexors, knee extensors, dorsiflexion, toe extension (EHL) , plantarflexion Motor examination - left side: 4/5: biceps, triceps, wrist flexion, wrist extension, fish roe processor, hip flexors, knee extensors, dorsiflexion, toe extension (EHL) , plantarflexion Detailed sensory examination: intact Reflex and gait examination: intact Reflexes: 1+: ankle, bicep, knee, tricep - Musculoskeletal Musculoskeletal: no pain - Psychiatric Psychiatric: mood/affect appropriate, cooperative Results - Laboratory Findings CBC and BMP: 10/20/17 16:50 10/20/17 16:50 Abnormal Lab Findings: Abnormal Labs 10/20/17 10/20/17 10/20/17 16:29 16:50 16:50 Lymphocytes # 0.8 L INR Carbon Dioxide 17 L BUN 21 H Glucose 377 H POC Glucose (mg/dL) 362 H Urine Protein Urine Glucose (UA) Ur Leukocyte Esterase Urine WBC Urine Bacteria Urine Mucus 10/20/17 10/20/17 10/20/17 16:50 17:32 19:45 Lymphocytes # INR 1.2 H Carbon Dioxide BUN Glucose POC Glucose (mg/dL) 234 H Urine Protein Trace H Urine Glucose (UA) 4+ H Ur Leukocyte Esterase Moderate H Urine WBC 20 H Urine Bacteria Occasional H Urine Mucus Rare H Assessment and Plan (1) Acute encephalopathy Current Visit: Yes Status: Acute Code(s): G93.40 - ENCEPHALOPATHY, UNSPECIFIED SNOMED Code(s): 7179304 (2) Dementia Current Visit: Yes Status: Acute Code(s): F03.90 - UNSPECIFIED DEMENTIA WITHOUT BEHAVIORAL DISTURBANCE SNOMED Code(s): 10245316 (3) Delirium due to general medical condition Current Visit: No Status: Acute Code(s): F05 - DELIRIUM DUE TO KNOWN PHYSIOLOGICAL CONDITION SNOMED Code(s): 2447776 (4) Urinary tract infection Current Visit: No Status: Acute Code(s): N39.0 - URINARY TRACT INFECTION, SITE NOT SPECIFIED SNOMED Code(s): 79052880 Plan: this patient is a 87-year-old female with long-standing history of underlying dementia. She has been showing worsening dementia symptoms in the last 1 month. She is currently residing at a assisted living facility. Daughter is now very concerned regarding her safety as she had a fall on 10/05/2017 with similar symptoms of worsening confusion. Would recommend social work consultation for possible discharge planning and placement. She does have mild features of urinary tract infection and may require treatment. Would recommend to continue her on current dose of Aricept. We will get a physical therapy consultation to assess her walking capacity. Patient seems to be showing worsening signs of underlying dementia. She may require 24-hour care in a [facility] or other facility. We will continue to follow her progress closely during this admission. Her overall prognosis at this time remains very guarded. Time with Patient: Greater than 30
[2017-10-21 11:59] LABS: Glucose,Whole Blood 130 mg/dL (75-99)
[2017-10-21] MEDS ORDERED: AZITHROMYCIN 500 MG in SODIUM CHLORIDE 0.9% 250 ML IVPB SCH (13:00)
[2017-10-21] MEDS: INSULN ASP PRT/INSULIN ASPART 100 UNIT/ML 10 ML VIAL SQ SCH ×2 (15:10→21:26)
--- NOTE | 2017-10-21 16:28 | HP ---
HISTORY AND PHYSICAL Nalini Costello is an 87-year-old female who presented to the ED at [facility] with confusion. She had fallen down, had a similar episode recently and had been admitted to the hospital. She has some baseline dementia and does not give me any specific history. She keeps repeating okay but does not follow significant commands for me. PAST MEDICAL HISTORY: Positive for coronary artery disease, congestive heart failure, dementia with memory impairment, colon cancer, occipital stroke with some mild right-sided weakness, cardiac cath with stent placement, tonsillectomy, appendectomy, cholecystectomy, partial resection of the colon, history of anxiety. SOCIAL HISTORY: Patient is a never smoker. FAMILY HISTORY: The patient does not know much about her father's medical history. Mother from a stroke. MEDICATIONS: Prior to admission were acetaminophen, aspirin, metformin, Antivert, Cozaar, Imdur, NovoLog 70/30, Aricept, Plavix, Celexa, and Ecotrin low dose. REVIEW OF SYSTEMS: Noncontributory. PHYSICAL EXAMINATION: Blood pressure is 180/98, respiratory rate of 18, pulse rate of 75, temperature 98.3, and O2 saturation on room air is 94%. HEENT reveals pupils are equal. CHEST: Clear. Cardiovascular system is S1, S2. ABDOMEN: Soft. There is no edema. The patient is pleasantly confused. There are no focal deficits. LABORATORY DATA: PT/INR is 1.2. CK is 31. C difficile is pending. White count is 4.6, hemoglobin 13.5, sodium 138, potassium 4.8, chloride 107, bicarb 17, BUN 21, creatinine of 1.03, glucose 377. UA shows trace protein, 4+ glucose, moderate leukocyte esterase. Urine GROWTH MEDIA MIXER MUSHROOM is pending. Chest x-ray shows no acute pulmonary process. Brain CT shows some white matter changes versus old left occipital lobe infarct or subcortical infarct. IMPRESSION: At this time: 1. Metabolic encephalopathy. 2. Urinary tract infection. 3. Dementia. 4. Congestive heart failure. 5. Diabetes mellitus. 6. Metabolic acidosis, which may in part be due to renal insufficiency. 7. Chronic kidney disease stage 3. At this point in time, keep the patient on azithromycin as she is ALLERGIC TO LEVAQUIN, NITROFURANTOIN, AND PENICILLINS. Have her seen by ID, have her seen by Neurology. Check neuro checks on her. She may require a placement versus rehab. We will have Physical Medicine and rehab further evaluate. Continue her on insulin. Depending on how she does, we should make further changes to her care. Her prognosis at this time is guarded. NATHANIEL / DUANE: [id number] /
[2017-10-21 17:44] LABS: Glucose,Whole Blood 193 mg/dL (75-99)
[2017-10-21] MEDS: INSULIN ASPART 100 UNIT/ML 1 ML 10 ML VIAL SQ SCH ×2 (17:52→21:25)
[2017-10-21] MEDS: SODIUM CHLORIDE 0.9% 1,000 ML IV SCH ×3 (17:52→21:15)
[2017-10-21 20:56] LABS: Glucose,Whole Blood 216 mg/dL (75-99)
[2017-10-21] MEDS: DONEPEZIL 10 MG TAB PO SCH (21:14)
[2017-10-21] MEDS: METOPROLOL TARTRATE 25 MG TAB PO SCH (21:14)
[2017-10-21] MEDS: MECLIZINE 25 MG TAB PO SCH (21:15)
[2017-10-21] MEDS: HEPARIN SODIUM,PORCINE 5,000 UNIT/ML 1 ML VIAL SQ SCH (21:15)
[2017-10-21] MEDS: CITALOPRAM HYDROBROMIDE 10 MG TAB PO SCH (21:15)
[2017-10-21] MEDS: TEMAZEPAM 15 MG CAP PO SCH (21:25)
[2017-10-21] MEDS: FAMOTIDINE 20 MG TAB PO SCH (23:20)
[2017-10-21] MEDS ORDERED: cefTRIAXone IN SWFI 1,000 MG/10 ML SYRINGE IVP SCH (23:30)
--- NOTE | 2017-10-22 06:44 | P.CONS ---
History of Present Illness - Chief Complaint Medical debility - History of Present Illness I had the opportunity to see patient for inpatient rehab consultation with regard to medical debility. She was admitted to [facility] October 20 with mental status change and fall. Seen by Dr. Everardo Melton who diagnosed encephalopathy and dementia. Laboratories chest x-ray negative. Head CT with atrophy, periventricular white matter change and possible old left occipital infarct. PT and OT prescribed. Previous functional history: Patient to confused to give history. Review of Systems Review of systems: Patient confused and ROS gleaned from patient and chart. ENT: Denies sneezes or discharge. Eyes: Denies discharge or photophobia. Cardiac: Denies chest pain or palpitation. Pulmonary: Denies cough or shortness of breath. Breast: Denies discharge or lumps. Gastrointestinal: Denies nausea, emesis, constipation, diarrhea. Genitourinary: Denies discharge or frequency. Musculoskeletal: Denies muscle or bone aches. Neurologic: General confusion. Endocrine: Denies shakes or sweats. Oncology: Denies cancers. Dermatologic: Denies rash, itching, pruritus. ALLERGY/immunology: Denies sneezes, rashes. Past Medical History Past Medical History: Coronary Artery Disease (CAD), Cancer, Heart Failure, CVA/ TIA, Dementia, Diabetes Mellitus, Hyperlipidemia, Hypertension, Memory Impairment Additional Past Medical History / Comment(s): DIZZINESS, colon cancer, mild cognitive impairment(aricept),occipital stroke w/mild rt sided weakness, djd( spine) History of Any Multi-Drug Resistant Organisms: None Reported Past Surgical History: Appendectomy, Cholecystectomy, Heart Catheterization With Stent, Tonsillectomy Additional Past Surgical History / Comment(s): partial colon resection d/t ca, rods left leg from fracture. Past Anesthesia/Blood Transfusion Reactions: No Reported Reaction Date of Last Stent Placement:: 2001 Past Psychological History: Anxiety Additional Psychological History / Comment(s): Lives at [facility] Smoking Status: Never smoker Past Alcohol Use History: Occasional Past Drug Use History: None Reported - Past Family History Father History Unknown: Yes Family Medical History: CVA/TIA Additional Family Medical History / Comment(s): PT'S DAD WAS AN ADOPTED CHILD AND SHE STATED DID'NT KNOW A LOT ABOUT HIS HX. Mother Family Medical History: CVA/TIA Additional Family Medical History / Comment(s): FROM A STROKE AT AGE 90 Medications and Allergies Home Medications Medication Instructions Recorded Confirmed Type Clopidogrel [Plavix] 75 mg PO DAILY 06/26/14 10/20/17 History Metoprolol Tartrate 25 mg PO HS 06/26/14 10/20/17 History metFORMIN HCL [Glucophage] 500 mg PO BID 06/26/14 10/20/17 History Donepezil [Aricept] 10 mg PO HS 07/23/15 10/20/17 History Meclizine [Antivert] 25 mg PO HS 07/23/15 10/20/17 History Losartan Potassium [Cozaar] 100 mg PO DAILY 30 Days tab 07/27/15 10/20/17 Rx Isosorbide Mononitrate ER [Imdur] 30 mg PO DAILY #0 tab.er.24h 12/14/15 Rx Aspirin EC [Ecotrin Low Dose] 81 mg PO DAILY 10/05/17 10/20/17 History Citalopram Hydrobromide [CeleXA] 10 mg PO DAILY 10/05/17 10/20/17 History Insuln Asp Prt/Insulin Aspart 5 unit SQ BID 10/05/17 10/20/17 History [NovoLOG MIX 70-30 VIAL] Allergies Allergy/AdvReac Type Severity Reaction Status Date / Time codeine Allergy Unknown Verified 10/20/17 16:27 latex Allergy Unknown Verified 10/20/17 16:27 levofloxacin [From Levaquin] Allergy Unknown Verified 10/20/17 16:27 nitrofurantoin Allergy Unknown Verified 10/20/17 16:27 macrocrystalline [From Macrodantin] Penicillins Allergy Unknown Verified 10/20/17 16:27 propoxyphene napsylate Allergy Unknown Verified 10/20/17 16:27 [From Darvocet-N 100] shellfish derived Allergy Unknown Verified 10/20/17 16:27 Sulfa (Sulfonamide Allergy Unknown Verified 10/20/17 16:27 Antibiotics) Physical Exam Vitals: Vital Signs Temp Pulse Resp BP Pulse Ox 10/21/17 23:00 99.5 F 71 16 148/81 95 10/21/17 17:00 99.3 F 83 20 141/77 95 10/21/17 12:00 75 18 10/21/17 08:00 98.3 F 75 18 180/98 94 L 10/21/17 07:14 96 Intake and Output 10/21/17 10/21/17 10/22/17 14:59 22:59 06:59 Other: Voiding Method Bedside Commode Bedside Commode Bedpan Bedpan Diaper # Voids 1 0 3 # Bowel Movements 1 Weight 65 kg Patient Weight 10/22/17 06:59 Weight 65 kg Skin: Atrophic, intact. General: Medium build and comfortable appearance. Head: Normocephalic, atraumatic. Eyes: Symmetric. Pupils equal round. Ears: Symmetric. Hearing within normal limits. Mouth: Clear. Neck: Supple. Carotid without bruit. Cardiac: Regular rate and rhythm. Lungs: Clear anteriorly and posteriorly. Abdomen: Soft active nontender. Extremities: Normal tone. Neurological: Mental status: Alert, cooperative, pleasant. Cranial nerves: Symmetric facial tone and trapezius. Motor: Active movement all limbs. Sensation: Intact throughout. DTRs: Symmetric and equal throughout. Mobility: Actively moving in bed and trying to get out on own, restrained by safety guards only which appears adequate. Results CBC & Chem 7: 10/20/17 16:50 10/20/17 16:50 Labs: Abnormal Lab Results - Last 24 Hours (Table) 10/21/17 10/21/17 10/21/17 Range/Units 11:58 17:07 20:34 POC Glucose (mg/dL) 130 H 193 H 216 H (75-99) mg/dL Microbiology - Last 24 Hours (Table) 10/20/17 16:50 Urine Culture - Final Urine,Catheterized Chest x-ray: report reviewed (Negative.) Assessment and Plan (1) Acute encephalopathy Current Visit: Yes Status: Acute Code(s): G93.40 - ENCEPHALOPATHY, UNSPECIFIED SNOMED Code(s): 6556505 Plan: Impression: 1. Medical debility. 2. Acute encephalopathy. 3. Dementia. 4. A. fib with RVR. 5. Hypertension. 6. Dyslipidemia. 7. Diabetes. 8. History of stroke and memory impairments Comments and plan: PT and OT prescribed and will add speech therapy at this time. At this time, rehab prognosis guarded secondary to severe confusion.
[2017-10-22 07:28] LABS: Glucose,Whole Blood 172 mg/dL (75-99)
--- NOTE | 2017-10-22 07:38 | CONS ---
CONSULTATION DATE OF SERVICE: 10/21/2017 REASON FOR CONSULTATION: Urinary tract infection. HISTORY OF PRESENT ILLNESS: The patient is an 87-year-old female, has been brought into the ER at [facility] yesterday afternoon with the chief complaints of confusion and a fall. The patient did have baseline dementia and is awake, alert, oriented x1. The patient with no significant symptoms. No clear history of any nausea, no vomiting, or any high- grade fever. The patient also denies having any chest pain or shortness of breath or cough. No abdominal pain and no diarrhea. Patient has been evaluated by the ER physician where the patient did have a CT of the brain that was negative for any bleed. Chest x-ray with no acute pulmonary process. The patient's white count was normal. However, urine was positive with moderate leukocyte esterases, 20 WBC. C difficile was negative. The patient has been subsequently started on azithromycin because of her multiple antibiotic allergies and ID was consulted for further recommendation of antibiotics. REVIEW OF SYSTEMS: Could not be reliably obtained because of underlying mental status, though the positive points have been mentioned in HPI. PAST MEDICAL HISTORY: Significant for coronary artery disease, congestive heart failure, CVA, TIA, dementia, diabetes mellitus, hypertension, hyperlipidemia, history of colon cancer. PAST SURGICAL HISTORY: Appendectomy, cholecystectomy, heart catheterization and stent, tonsillectomy and partial colon resection for . SOCIAL HISTORY: No history of smoking. No drinking or drug use. FAMILY HISTORY: Father history CVA/TIA. Mother also with a history of CVA and TIA. ALLERGIES: Allergies to LEVOFLOXACIN, MACRODANTIN, PENICILLIN, SULFA and CODEINE. MEDICATION: Medications include the patient is currently on Restoril, saline, Narcan, Lopressor, Glucophage, Antivert, Cozaar, Imdur, NovoLog, heparin, Pepcid, Aricept, Plavix, azithromycin, Tylenol. PHYSICAL EXAMINATION: On examination, her blood pressure is 141/77 with a pulse of 83, temperature of 99.3. She is 95% on room air. General description is a an elderly female lying in bed, in no distress. No tachypnea or accessory muscle of respiration use. HEENT EXAMINATION: No pallor or scleral icterus. Oral mucous membrane is dry. NECK: Trachea central. No thyromegaly. LUNGS: Unlabored breathing, clear to auscultation anteriorly. No wheeze or crackle. HEART: S1, S2. Regular rate and rhythm. ABDOMEN: Soft, no tenderness. No guarding or rigidity. EXTREMITIES: No edema of the feet. SKIN EXAMINATION: No rash or mass palpable. NEUROLOGICAL: Patient is awake, alert, oriented x1. Mood and affect normal. LABS: Hemoglobin is 13.5, white count 4.6 with a BUN of 21, creatinine 1.03. Urine is positive with moderate leukocyte esterases, 20 WBC. Urine culture currently pending. Chest x-ray was negative. DIAGNOSTIC IMPRESSION AND PLAN: 1. Patient admitted to the hospital with mental status changes and weakness and apparent fall could be multifactorial in this patient with possibility of urinary tract infection not entirely excluded. The patient did have a positive UA and no other clinical focus of infection. Chest x-ray report has been negative. Abdomen was soft on clinical examination. No evidence of any cellulitis or joint swelling. 2. Patient does have multiple antibiotic allergies that do limit number of antibiotics that could be safely used. PLAN: 1. Discontinue the . 2. The patient was started on Rocephin 1 gram daily while watching her closely. Does have a history of PENICILLIN allergy, but no clear history of any anaphylaxis using a third generation cephalosporin safe. 3. We will follow up on clinical condition and culture to further adjust medication if needed. Thank you for this consultation. Will follow this patient along with you. MMODL / IJN: [id number] /
[2017-10-22] MEDS: ASPIRIN 81 MG PO SCH (08:22)
[2017-10-22] MEDS: LOSARTAN 50 MG TAB PO SCH (08:22)
[2017-10-22] MEDS: HEPARIN SODIUM,PORCINE 5,000 UNIT/ML 1 ML VIAL SQ SCH ×2 (08:22→21:36)
[2017-10-22] MEDS: FAMOTIDINE 20 MG TAB PO SCH ×2 (08:22→21:36)
[2017-10-22] MEDS: INSULIN ASPART 100 UNIT/ML 1 ML 10 ML VIAL SQ SCH ×4 (08:22→21:35)
[2017-10-22] MEDS: ISOSORBIDE MONONITRATE ER 30 MG TAB.ER.24H PO SCH (08:22)
[2017-10-22] MEDS: metFORMIN 500 MG TAB PO SCH ×2 (08:22→17:41)
[2017-10-22] MEDS: CLOPIDOGREL 75 MG TAB PO SCH (08:22)
[2017-10-22] MEDS: SODIUM CHLORIDE 0.9% 1,000 ML IV SCH (08:23)
[2017-10-22] MEDS: INSULN ASP PRT/INSULIN ASPART 100 UNIT/ML 10 ML VIAL SQ SCH ×2 (08:32→21:36)
[2017-10-22 10:45] VITALS: BMI 28.0
[2017-10-22 10:55] LABS: Basophils % (A) 0 %; Eosinophils % (A) 0 %; HGB 13.6 gm/dL (11.4-16.0); Lymphocytes # (A) 0.9 k/uL (1.0-4.8); Lymphocytes % (A) 12 %; MCH 30.4 pg (25.0-35.0); MCHC 32.4 g/dL (31.0-37.0); MCV 93.9 fL (80.0-100.0); Mean Platelet Volume 7.8; Monocytes # (A) 0.3 k/uL (0-1.0); Monocytes % (A) 4 %; Neutrophils # (A) 6.2 k/uL (1.3-7.7); Neutrophils % (A) 81 %; Platelet Count 186 k/uL (150-450); RBC 4.47 m/uL (3.80-5.40); RDW 13.2 % (11.5-15.5); WBC 7.6 k/uL (3.8-10.6)
--- NOTE | 2017-10-22 11:01 | P.PN ---
Subjective Progress Note Date: 10/22/17 Principal diagnosis: Encephalopathy Patient seen and examined. Patient has a sitter at the bedside. The patient answers "no" to all questions. The patient is currently on room air. Per the patient's sitter she only had about 5 bites of breakfast this morning. She has not had any fevers. Objective - Vital Signs Vital signs: Vital Signs Temp 97.9 F 10/22/17 07:00 Pulse 98 10/22/17 07:00 Resp 18 10/22/17 07:00 BP 169/100 10/22/17 07:00 Pulse Ox 91 L 10/22/17 07:00 Intake & Output 10/21/17 10/22/17 10/22/17 18:59 06:59 18:59 Intake Total 120 Balance 120 Weight 65 kg 65 kg Intake: Oral 120 Other: Voiding Method Bedside Commode Bedpan Bedpan Bedpan Diaper Diaper # Voids 1 3 # Bowel Movements 1 - Exam Gen.: Patient is alert, she is not oriented Cardiovascular: Regular rate and rhythm, S1/S2 Lungs: Diminished otherwise clear Abdomen: Soft nontender nondistended positive bowel sounds Extremities: No edema - Labs CBC & Chem 7: 10/20/17 16:50 10/20/17 16:50 Labs: Abnormal Lab Results - Last 24 Hours (Table) 10/21/17 10/21/17 10/21/17 Range/Units 11:58 17:07 20:34 POC Glucose (mg/dL) 130 H 193 H 216 H (75-99) mg/dL 10/22/17 Range/Units 06:47 POC Glucose (mg/dL) 172 H (75-99) mg/dL Microbiology - Last 24 Hours (Table) 10/20/17 16:50 Urine Culture - Final Urine,Catheterized Assessment and Plan Assessment: Metabolic encephalopathy Urinary tract infection on admission Dementia CHF Diabetes mellitus type 2 Metabolic acidosis, renal insufficiency Chronic kidney disease stage III Fall from standing Medical debility Afib with RVR Hypertension Dyslipidemia History of CVA ABX per ID, patient did pull out her IV, possibly change to PO Neurology recommendations appreciated Social work and case management for placement Blood sugar control PT and OT Repeat labs in AM GI and DVT prophylaxis DC IVF Encourage enteral nutrition, consult dietitian [employer] consult Continue supportive care Plan for discharge to ECF in 24 hours if bed available
[2017-10-22 11:03] LABS: ALT 26 U/L (9-52); AST 17 U/L (14-36); Albumin 3.5 g/dL (3.5-5.0); Alkaline Phosphatase 89 U/L (38-126); Anion Gap 10 mmol/L; Blood Urea Nitrogen 12 mg/dL (7-17); Carbon Dioxide 26 mmol/L (22-30); Chloride 102 mmol/L (98-107); Glucose 246 mg/dL (74-99); Potassium 3.2 mmol/L (3.5-5.1); Sodium 138 mmol/L (137-145); Total Bilirubin 0.9 mg/dL (0.2-1.3); Total Protein 5.8 g/dL (6.3-8.2)
[2017-10-22] MEDS: CEFUROXIME 250 MG TAB PO SCH ×2 (11:27→21:37)
[2017-10-22 12:33] LABS: Glucose,Whole Blood 203 mg/dL (75-99)
[2017-10-22 13:28] LABS: Hemoglobin A1C 12.3 % (4.0-6.0)
[2017-10-22 17:21] LABS: Glucose,Whole Blood 230 mg/dL (75-99)
[2017-10-22 21:35] LABS: Glucose,Whole Blood 262 mg/dL (75-99)
[2017-10-22] MEDS: METOPROLOL TARTRATE 25 MG TAB PO SCH (21:36)
[2017-10-22] MEDS: MECLIZINE 25 MG TAB PO SCH (21:36)
[2017-10-22] MEDS: DONEPEZIL 10 MG TAB PO SCH (21:36)
[2017-10-22] MEDS: CITALOPRAM HYDROBROMIDE 10 MG TAB PO SCH (21:36)
[2017-10-22] MEDS: TEMAZEPAM 15 MG CAP PO SCH (21:43)
--- NOTE | 2017-10-22 23:31 | P.PN ---
Subjective Progress Note Date: 10/22/17 This patient is a 87 year old female admitted with confusion and worsening dementia. The patient is slightly improved today and that she can make full sentences rather than just 1 word answers. She denies any pain at this time. She is being considered for possible placement into ECF in the next 24 hours. The patient has evidence of a diffuse metabolic encephalopathy. She has a long- standing history of underlying dementia as well which caused her to have recent admissions to the hospital. She has evidence on her computed tomography scan of cortical atrophy and old left occipital infarct. No new areas of infarction were noted. The patient is pleasantly confused. As noted for safety reason she is now being considered for placement into ECF. We will continue to follow her progress closely during this admission. Objective - Vital Signs Vital signs: Vital Signs Temp 97.9 F 10/22/17 07:00 Pulse 98 10/22/17 07:00 Resp 18 10/22/17 07:00 BP 169/100 10/22/17 07:00 Pulse Ox 91 L 10/22/17 07:00 Intake & Output 10/21/17 10/22/17 10/22/17 18:59 06:59 18:59 Intake Total 120 Balance 120 Weight 65 kg 65 kg Intake: Oral 120 Other: Voiding Method Bedside Commode Bedpan Bedpan Bedpan Diaper Diaper # Voids 1 3 2 # Bowel Movements 1 - Exam Physical examination: PHYSICAL EXAMINATION: Patient is resting comfortably in bed. VITAL SIGNS: Blood pressure is [169/100]. Heart rate is [98]. Respiration is [18 ]. Temperature is [97.9]. HEENT: Head is atraumatic, neck is supple, there were no carotid bruits. CHEST: Lungs are clear to auscultation and percussion. CARDIAC: S1, S2 normal rate and rhythm. There is no murmur. ABDOMEN: Soft and nontender. Bowel sounds are present. EXTREMITIES: There is no pedal edema. Peripheral pulses are present. Neurological examination: Patient is neurological exam is unchanged from yesterday. - Labs CBC & Chem 7: 10/22/17 10:36 10/22/17 10:36 Labs: Abnormal Lab Results - Last 24 Hours (Table) 10/20/17 10/21/17 10/21/17 Range/Units 16:50 17:07 20:34 Lymphocytes # (1.0-4.8) k/uL Potassium (3.5-5.1) mmol/L Glucose (74-99) mg/dL POC Glucose (mg/dL) 193 H 216 H (75-99) mg/dL Hemoglobin A1c 12.3 H (4.0-6.0) % Total Protein (6.3-8.2) g/dL 10/22/17 10/22/17 10/22/17 Range/Units 06:47 10:36 10:36 Lymphocytes # 0.9 L (1.0-4.8) k/uL Potassium 3.2 L (3.5-5.1) mmol/L Glucose 246 H (74-99) mg/dL POC Glucose (mg/dL) 172 H (75-99) mg/dL Hemoglobin A1c (4.0-6.0) % Total Protein 5.8 L (6.3-8.2) g/dL 10/22/17 Range/Units 12:29 Lymphocytes # (1.0-4.8) k/uL Potassium (3.5-5.1) mmol/L Glucose (74-99) mg/dL POC Glucose (mg/dL) 203 H (75-99) mg/dL Hemoglobin A1c (4.0-6.0) % Total Protein (6.3-8.2) g/dL Microbiology - Last 24 Hours (Table) 10/20/17 16:50 Urine Culture - Final Urine,Catheterized Assessment and Plan (1) Acute encephalopathy Current Visit: Yes Status: Acute Code(s): G93.40 - ENCEPHALOPATHY, UNSPECIFIED SNOMED Code(s): 1812935 (2) Dementia Current Visit: Yes Status: Acute Code(s): F03.90 - UNSPECIFIED DEMENTIA WITHOUT BEHAVIORAL DISTURBANCE SNOMED Code(s): 08087021 (3) Delirium due to general medical condition Current Visit: No Status: Acute Code(s): F05 - DELIRIUM DUE TO KNOWN PHYSIOLOGICAL CONDITION SNOMED Code(s): 7009267 (4) Urinary tract infection Current Visit: No Status: Acute Code(s): N39.0 - URINARY TRACT INFECTION, SITE NOT SPECIFIED SNOMED Code(s): 63100677 Plan: This patient is a pleasant 87-year-old female who is being evaluated for worsening dementia and mild encephalopathy. Patient is doing better today in terms of her mental status. 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 No new changes were noted. She is awaiting possible discharge to [facility] one she has been medically cleared. Neurologically she remains stable with no new changes. Her overall mental status today has slightly improved. We will continue close neurological follow-up for this patient during this admission.
--- NOTE | 2017-10-23 05:20 | PN ---
PROGRESS NOTE DATE OF SERVICE: 10/22/2017 REASON FOR FOLLOWUP: UTI. INTERVAL HISTORY: The patient is afebrile. She is breathing comfortably. No agitation has been noticed, however, the patient has not been allowing her IV site and did . No nausea, vomiting, or any diarrhea. Was unable to provide any history. PHYSICAL EXAMINATION: On examination, blood pressure 119/80 with a pulse of 75, temperature of 98.9. She is 93% on room air. General description is an elderly female, lying in bed, in no distress. RESPIRATORY SYSTEM: Unlabored breathing, clear to auscultation anteriorly. HEART: S1, S2. Regular rate and rhythm. ABDOMEN: Soft, no tenderness. LABS: White count of 7.6, hemoglobin is 13.6. Urine culture currently pending. DIAGNOSTIC IMPRESSION AND PLAN: Patient admitted to the hospital with mental status changes with concern for possible urinary tract infection. Urine was slightly positive. Currently covered. The patient has not been allowing any IV. Antibiotic was switched over to p.o. Ceftin. Monitor clinical course closely. Continue supportive care. MMODL / IJN: [id number] /
[2017-10-23 07:53] LABS: Glucose,Whole Blood 166 mg/dL (75-99)
[2017-10-23] MEDS: HEPARIN SODIUM,PORCINE 5,000 UNIT/ML 1 ML VIAL SQ SCH ×2 (08:08→20:24)
[2017-10-23] MEDS: metFORMIN 500 MG TAB PO SCH ×2 (08:08→17:21)
[2017-10-23] MEDS: INSULIN ASPART 100 UNIT/ML 1 ML 10 ML VIAL SQ SCH ×4 (08:08→21:07)
[2017-10-23] MEDS: ASPIRIN 81 MG PO SCH (08:09)
[2017-10-23] MEDS: LOSARTAN 50 MG TAB PO SCH (08:09)
[2017-10-23] MEDS: CLOPIDOGREL 75 MG TAB PO SCH (08:09)
[2017-10-23] MEDS: FAMOTIDINE 20 MG TAB PO SCH ×2 (08:09→20:24)
[2017-10-23] MEDS: ISOSORBIDE MONONITRATE ER 30 MG TAB.ER.24H PO SCH (08:09)
[2017-10-23] MEDS: CEFUROXIME 250 MG TAB PO SCH ×2 (08:09→20:24)
[2017-10-23] MEDS: INSULN ASP PRT/INSULIN ASPART 100 UNIT/ML 10 ML VIAL SQ SCH ×2 (08:18→21:07)
[2017-10-23 08:29] LABS: HGB 14.4 gm/dL (11.4-16.0); MCH 30.7 pg (25.0-35.0); MCHC 32.7 g/dL (31.0-37.0); Mean Platelet Volume 7.7; Platelet Count 180 k/uL (150-450); RBC 4.68 m/uL (3.80-5.40); RDW 13.2 % (11.5-15.5); WBC 5.8 k/uL (3.8-10.6)
[2017-10-23 08:49] LABS: Anion Gap 10 mmol/L; Blood Urea Nitrogen 20 mg/dL (7-17); Calcium 9.4 mg/dL (8.4-10.2); Carbon Dioxide 24 mmol/L (22-30); Chloride 105 mmol/L (98-107); Glucose 174 mg/dL (74-99); Potassium 3.5 mmol/L (3.5-5.1); Sodium 139 mmol/L (137-145)
--- NOTE | 2017-10-23 10:26 | P.DS ---
Providers Date of admission: 10/21/17 12:42 Expected date of discharge: 10/23/17 Attending physician: Rolando Marie Consults: 10/20/17 21:25 Consult Physician Routine Consulting Provider: Yahaira Lou Consult Reason/Comments: altered mental status change Do you want consulting provider notified?: Yes 10/21/17 12:50 Consult Physician Routine Consulting Provider: Michael Jimenez Consult Reason/Comments: UTI Do you want consulting provider notified?: Yes 10/21/17 15:55 Consult Physician Routine Consulting Provider: Vic Zhong Consult Reason/Comments: medical debility Do you want consulting provider notified?: Yes Primary care physician: [facility] Course: This is an 79-year-old female patient who presented to the emergency room on 12/2017, after she had fallen down. The patient was worked up in the emergency room and found to have a UTI, metabolic encephalopathy, dementia and renal insufficiency. The patient was treated and is doing better. Both infectious disease and neurology was on consult and has cleared the patient to be discharged. The patient is being worked up to go to ECF/rehab facility upon discharge. Pertinent Studies: Brain CT Chest Xray Patient Condition at Discharge: Fair Plan - Discharge Summary New Discharge Prescriptions: New Cefuroxime [Ceftin] 500 mg PO BID 3 Days #6 tab Continue Clopidogrel [Plavix] 75 mg PO DAILY metFORMIN HCL [Glucophage] 500 mg PO BID Metoprolol Tartrate 25 mg PO HS Meclizine [Antivert] 25 mg PO HS Donepezil [Aricept] 10 mg PO HS Losartan Potassium [Cozaar] 100 mg PO DAILY 30 Days tab Isosorbide Mononitrate ER [Imdur] 30 mg PO DAILY #0 tab.er.24h Citalopram Hydrobromide [CeleXA] 10 mg PO DAILY Aspirin EC [Ecotrin Low Dose] 81 mg PO DAILY Insuln Asp Prt/Insulin Aspart [NovoLOG MIX 70-30 VIAL] 5 unit SQ BID Discharge Medication List Clopidogrel [Plavix] 75 mg PO DAILY 06/26/14 [History] Metoprolol Tartrate 25 mg PO HS 06/26/14 [History] metFORMIN HCL [Glucophage] 500 mg PO BID 06/26/14 [History] Donepezil [Aricept] 10 mg PO HS 07/23/15 [History] Meclizine [Antivert] 25 mg PO HS 07/23/15 [History] Losartan Potassium [Cozaar] 100 mg PO DAILY 30 Days tab 07/27/15 [Rx] Isosorbide Mononitrate ER [Imdur] 30 mg PO DAILY #0 tab.er.24h 12/14/15 [Rx] Aspirin EC [Ecotrin Low Dose] 81 mg PO DAILY 10/05/17 [History] Citalopram Hydrobromide [CeleXA] 10 mg PO DAILY 10/05/17 [History] Insuln Asp Prt/Insulin Aspart [NovoLOG MIX 70-30 VIAL] 5 unit SQ BID 10/05/17 [ History] Cefuroxime [Ceftin] 500 mg PO BID 3 Days #6 tab 10/23/17 [Rx] Follow up Appointment(s)/Referral(s): Mahin Kim MD [Primary Care Provider] - 1 Week None,Stated [REFERRING] - 1-2 days Activity/Diet/Wound Care/Special Instructions: diet consistant carb Discharge Disposition: TRANSFER TO SNF/ECF
[2017-10-23 12:33] LABS: Glucose,Whole Blood 237 mg/dL (75-99)
--- NOTE | 2017-10-23 16:18 | PN ---
PROGRESS NOTE DATE OF SERVICE: 10/23/2017 REASON FOR FOLLOWUP: Urinary tract infection. INTERVAL HISTORY: The patient is afebrile. She is breathing comfortably. No nausea or vomiting has been noticed or any diarrhea. The patient admits to be lethargic, unable to provide any history. PHYSICAL EXAMINATION: Blood pressure is 118/75 with a pulse of 106, temperature 97. She is 93% on room air. General description is an elderly female lying in bed in no distress. RESPIRATORY SYSTEM: Unlabored breathing. Clear to auscultation anteriorly. HEART: S1, S2. Regular rate and rhythm. ABDOMEN: Soft. No tenderness. LABS: White count 5.8, creatinine 0.91. Urine did come back negative. DIAGNOSTIC IMPRESSION AND PLAN: Patient admitted to hospital with mental status changes which are likely multifactorial in a patient who does have a possible component of urinary tract infection. Her urine was slightly positive. Will give a short course of oral Ceftin for about 3 days. Continue with supportive care. MMODL / IJN: [id number] /
--- NOTE | 2017-10-23 17:41 | P.PN ---
Subjective Progress Note Date: 10/23/17 This patient is a 87 year old female admitted with confusion and worsening dementia. The patient is slightly improved today and that she can make full sentences rather than just 1 word answers. She denies any pain at this time. She is being considered for possible placement into ECF in the next 24 hours. The patient has evidence of a diffuse metabolic encephalopathy. She has a long- standing history of underlying dementia as well which caused her to have recent admissions to the hospital. She has evidence on her computed tomography scan of cortical atrophy and old left occipital infarct. No new areas of infarction were noted. The patient is pleasantly confused. As noted for safety reason she is now being considered for placement into ECF. The patient's mental status changes are likely multifactorial. She does have a mild component of urinary tract infection. Infectious disease has given her a short course of Ceftin for 3 days. Patient is awaiting possible discharge to ECF once bed becomes available. We will continue to follow her progress closely during this admission. Objective - Vital Signs Vital signs: Vital Signs Temp 97.0 F L 10/23/17 15:00 Pulse 106 H 10/23/17 15:00 Resp 18 10/23/17 15:00 BP 118/75 10/23/17 15:00 Pulse Ox 93 L 10/23/17 15:00 Intake & Output 10/22/17 10/23/17 10/23/17 18:59 06:59 18:59 Intake Total 360 300 360 Balance 360 300 360 Weight 65 kg 63.5 kg Intake: Oral 360 300 360 Other: Voiding Method Bedpan Bedpan Bedpan Diaper Diaper Diaper # Voids 2 1 2 # Bowel Movements 0 1 - Exam Physical examination: PHYSICAL EXAMINATION: Patient is resting comfortably in bed. VITAL SIGNS: Blood pressure is [118/75]. Heart rate is [106]. Respiration is [18 ]. Temperature is [97.0]. HEENT: Head is atraumatic, neck is supple, there were no carotid bruits. CHEST: Lungs are clear to auscultation and percussion. CARDIAC: S1, S2 normal rate and rhythm. There is no murmur. ABDOMEN: Soft and nontender. Bowel sounds are present. EXTREMITIES: There is no pedal edema. Peripheral pulses are present. Neurological examination: Patient is neurological exam is unchanged from yesterday. Patient did show some improvement in her speech today and seems to put sentences together much better today than on admission. There is been some clearing of her underlying confusional state. She has been treated for infection as well during this admission. - Labs CBC & Chem 7: 10/23/17 07:26 10/23/17 07:26 Labs: Abnormal Lab Results - Last 24 Hours (Table) 10/22/17 10/23/17 10/23/17 Range/Units 21:31 07:11 07:26 BUN 20 H (7-17) mg/dL Glucose 174 H (74-99) mg/dL POC Glucose (mg/dL) 262 H 166 H (75-99) mg/dL 10/23/17 Range/Units 12:12 BUN (7-17) mg/dL Glucose (74-99) mg/dL POC Glucose (mg/dL) 237 H (75-99) mg/dL Assessment and Plan (1) Acute encephalopathy Current Visit: Yes Status: Acute Code(s): G93.40 - ENCEPHALOPATHY, UNSPECIFIED SNOMED Code(s): 6578901 (2) Dementia Current Visit: Yes Status: Acute Code(s): F03.90 - UNSPECIFIED DEMENTIA WITHOUT BEHAVIORAL DISTURBANCE SNOMED Code(s): 83189854 (3) Delirium due to general medical condition Current Visit: No Status: Acute Code(s): F05 - DELIRIUM DUE TO KNOWN PHYSIOLOGICAL CONDITION SNOMED Code(s): 8321232 (4) Urinary tract infection Current Visit: No Status: Acute Code(s): N39.0 - URINARY TRACT INFECTION, SITE NOT SPECIFIED SNOMED Code(s): 55486046 Plan: This patient is a pleasant 87-year-old female who is being evaluated for worsening dementia and mild encephalopathy. Patient is doing better today in terms of her mental status. 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 No new changes were noted. She is awaiting possible discharge to ECF one she has been medically cleared. Neurologically she remains stable with no new changes. Her overall mental status today has slightly improved. Patient does have mild urinary tract infection and was started on 3 day course of Ceftin. She has shown some improvement in her mental status yesterday and today. She is awaiting transfer to ECF versus rehab. We will continue close neurological follow-up for this patient during this admission.
[2017-10-23 18:22] LABS: Glucose,Whole Blood 228 mg/dL (75-99)
[2017-10-23] MEDS: DONEPEZIL 10 MG TAB PO SCH (20:24)
[2017-10-23] MEDS: TEMAZEPAM 15 MG CAP PO SCH (20:24)
[2017-10-23] MEDS: METOPROLOL TARTRATE 25 MG TAB PO SCH (20:24)
[2017-10-23] MEDS: MECLIZINE 25 MG TAB PO SCH (20:24)
[2017-10-23] MEDS: CITALOPRAM HYDROBROMIDE 10 MG TAB PO SCH (20:24)
[2017-10-23 21:03] LABS: Glucose,Whole Blood 213 mg/dL (75-99)
[2017-10-24 07:51] LABS: Glucose,Whole Blood 158 mg/dL (75-99)
[2017-10-24 07:56] VITALS: RESP 16
[2017-10-24] MEDS: INSULN ASP PRT/INSULIN ASPART 100 UNIT/ML 10 ML VIAL SQ SCH (08:02)
[2017-10-24] MEDS: INSULIN ASPART 100 UNIT/ML 1 ML 10 ML VIAL SQ SCH ×2 (08:02→12:41)
[2017-10-24] MEDS: CLOPIDOGREL 75 MG TAB PO SCH (08:03)
[2017-10-24] MEDS: LOSARTAN 50 MG TAB PO SCH (08:03)
[2017-10-24] MEDS: metFORMIN 500 MG TAB PO SCH (08:03)
[2017-10-24] MEDS: CEFUROXIME 250 MG TAB PO SCH (08:03)
[2017-10-24] MEDS: HEPARIN SODIUM,PORCINE 5,000 UNIT/ML 1 ML VIAL SQ SCH (08:03)
[2017-10-24] MEDS: ISOSORBIDE MONONITRATE ER 30 MG TAB.ER.24H PO SCH (08:04)
[2017-10-24] MEDS: ASPIRIN 81 MG PO SCH (08:04)
[2017-10-24] MEDS: FAMOTIDINE 20 MG TAB PO SCH (08:04)
--- NOTE | 2017-10-24 10:18 | P.PN ---
Subjective Progress Note Date: 10/24/17 Principal diagnosis: Dementia Patient seen and examined. Patient states she is feeling much better today. She denies shortness of breath or chest pain. She does not appear to be in any distress. She is calm and comfortable. Objective - Vital Signs Vital signs: Vital Signs Temp 98.3 F 10/24/17 07:00 Pulse 107 H 10/24/17 07:00 Resp 16 10/24/17 07:00 BP 150/82 10/24/17 07:00 Pulse Ox 94 L 10/24/17 07:00 Intake & Output 10/23/17 10/24/17 10/24/17 18:59 06:59 18:59 Intake Total 360 500 Balance 360 500 Weight 63 kg Intake: Oral 360 500 Other: Voiding Method Bedpan Bedpan Diaper Diaper # Voids 2 3 - Exam Gen.: Patient is alert, she is not oriented Cardiovascular: Regular rate and rhythm, S1/S2 Lungs: Diminished otherwise clear Abdomen: Soft nontender nondistended positive bowel sounds Extremities: No edema - Labs CBC & Chem 7: 10/23/17 07:26 10/23/17 07:26 Labs: Abnormal Lab Results - Last 24 Hours (Table) 10/23/17 10/23/17 10/23/17 Range/Units 12:12 17:51 20:48 POC Glucose (mg/dL) 237 H 228 H 213 H (75-99) mg/dL 10/24/17 Range/Units 07:21 POC Glucose (mg/dL) 158 H (75-99) mg/dL Assessment and Plan Assessment: Metabolic encephalopathy Urinary tract infection on admission Dementia CHF Diabetes mellitus type 2 Metabolic acidosis, renal insufficiency Chronic kidney disease stage III Fall from standing Medical debility Afib with RVR Hypertension Dyslipidemia History of CVA ABX per ID, change to PO Ceftin Neurology recommendations appreciated Social work and case management for placement - awaiting authorization from insurance Blood sugar control PT and OT GI and DVT prophylaxis Encourage enteral nutrition Continue supportive care Plan for discharge to ECF today, please see full discharge summary
[2017-10-24 11:52] LABS: Glucose,Whole Blood 139 mg/dL (75-99)
[2017-10-24 14:50] VITALS: BP 148/74; PULSE 97; TEMP 98.1
--- NOTE | 2017-10-24 16:19 | PN ---
PROGRESS NOTE DATE OF SERVICE: 10/24/2017. REASON FOR FOLLOWUP: Urinary tract infection. INTERVAL HISTORY: The patient is afebrile. She is more awake and alert today, breathing comfortably. Denies any chest pain. No cough. No abdominal pain or any nausea or vomiting. No diarrhea. EXAMINATION: Blood pressure is 150/82 with a pulse of 89, temperature of 98.3. She is 94% on room air. General description is a elderly female up in the bed, up in no distress. RESPIRATORY SYSTEM: Unlabored breathing. Clear to auscultation anteriorly. HEART: S1, S2. Regular rate and rhythm. ABDOMEN: Soft, no tenderness. LABS: No new labs have been obtained today. DIAGNOSTIC IMPRESSION AND PLAN: Patient with hospital with mental status changes likely multifactorial. Patient possible component of urinary tract infection as urine was positive and mass with cystitis. Overall improvement on Ceftin; should be continued for another 2-3 days to finish a course of therapy. Continue supportive care. MMODL / IJN: [id number] /
[2017-10-24 16:51] LABS: Glucose,Whole Blood 196 mg/dL (75-99)
[2017-10-25] MEDS ORDERED: FAMOTIDINE 20 MG TAB PO SCH (09:00)
== END 2017-10-24 18:11 | DRG 689 ==
LOC: EC 16:21 → 3OBS 18:22 → OBSVTOIN 10-21 12:42 → 4MS4W 10-21 15:07
PROVIDERS: ADMIT Internal Medicine Pulmonary Disease; ATTEND Internal Medicine Pulmonary Disease
DX: N39.0 Urinary tract infection, site not specified (principal); G93.41 Metabolic encephalopathy; E87.2 Acidosis; E11.22 Type 2 diabetes mellitus with diabetic chronic kidney disease; F05 Delirium due to known physiological condition; I13.0 Hypertensive heart and chronic kidney disease with heart failure and stage 1 through stage 4 chronic kidney disease, or unspecified chronic kidney disease; I50.9 Heart failure, unspecified; F03.90 Unspecified dementia, unspecified severity, without behavioral disturbance, psychotic disturbance, mood disturbance, and anxiety; E78.5 Hyperlipidemia, unspecified; I25.10 Atherosclerotic heart disease of native coronary artery without angina pectoris; I48.91 Unspecified atrial fibrillation; N18.3 Chronic kidney disease, stage 3 (moderate); W18.30XA Fall on same level, unspecified, initial encounter; Z79.02 Long term (current) use of antithrombotics/antiplatelets; Z79.4 Long term (current) use of insulin; Z79.899 Other long term (current) drug therapy; Z82.3 Family history of stroke; Z85.038 Personal history of other malignant neoplasm of large intestine; Z86.73 Personal history of transient ischemic attack (TIA), and cerebral infarction without residual deficits; Z88.1 Allergy status to other antibiotic agents; Z79.82 Long term (current) use of aspirin
CPT/HCPCS: 36415; 70450; 71046; 80048; 80053; 81001; 82550; 82553; 83036; 84484; 85025; 85027; 85610; 85730; 87086; 87324; 99285

== ENCOUNTER → 2017-11-08 | Outpatient (CLI) | payer MEDICARE ==
--- NOTE | 2017-11-08 17:53 | EEG ---
ELECTROENCEPHALOGRAM REPORT DATE OF SERVICE: 11/08/2017. REASON FOR TESTING: Altered mental status. DESCRIPTION OF THE PROCEDURE: This EEG was performed using a 21 channel digital electroencephalograph, following international 10-20 system. DESCRIPTION OF THE RECORDING: From the beginning of the tracing, and with patient's eyes closed, the background rhythm was mostly consisting of 8 Hz alpha frequency in the posterior occipital leads. Asymmetry is noticed with decreased amplitude on the right compared to the left. Frequent muscle and movement artifacts are seen. Photic stimulation was performed with no driving response seen. No pathological waves were elicited. The patient remains awake throughout the tracing. No epileptiform discharges were seen. His EKG lead showed an irregularly irregular rhythm with a normal rate. INTERPRETATION: This awake EEG is abnormal mainly due to asymmetry with reduced amplitude in the right leads compared to the left. No epileptiform discharges were seen. The absence of epileptiform discharges does not rule out the diagnosis of epilepsy, therefore clinical correlation is recommended. Of note, her EKG lead showed an irregularly irregular rhythm with a normal rate. Thank you, Dr. Kim, for allowing me to participate in the care of your patient. If you have any questions, please feel free to contact me. MMODL / IJN: [id number] /
== END | disposition home or self-care (01) ==
LOC: NEUROMAIN 08:39
PROVIDERS: ATTEND Family Medicine
DX: R94.01 Abnormal electroencephalogram [EEG] (principal)
CPT/HCPCS: 95819

== ENCOUNTER 2017-11-10 21:18 | Inpatient (IN) | payer MEDICARE ==
--- NOTE | 2017-11-10 22:07 | ED ---
Altered Mental Status HPI - General Chief Complaint: Altered Mental Status Stated Complaint: Disoriented Time Seen by Provider: 11/10/17 21:24 Source: EMS Mode of arrival: EMS Limitations: altered mental status - History of Present Illness Initial Comments: 87 years old female from the group home was sent over because he thought she had altered mental status and she was found wandering around which is not quite normal for her she had a recent UTI and now she is coughing. There is no fall that's no trauma there is no chest pain or shortness of breath today she has some cough no abdominal pain no frequency urgency dysuria. Unfortunately this review of system is probably not reliable because she has a history of dementia but she does not look in any kind of distress - Related Data Home Medications Medication Instructions Recorded Confirmed Clopidogrel [Plavix] 75 mg PO DAILY 06/26/14 10/20/17 Metoprolol Tartrate 25 mg PO HS 06/26/14 10/20/17 metFORMIN HCL [Glucophage] 500 mg PO BID 06/26/14 10/20/17 Donepezil [Aricept] 10 mg PO HS 07/23/15 10/20/17 Meclizine [Antivert] 25 mg PO HS 07/23/15 10/20/17 Aspirin EC [Ecotrin Low Dose] 81 mg PO DAILY 10/05/17 10/20/17 Citalopram Hydrobromide [CeleXA] 10 mg PO DAILY 10/05/17 10/20/17 Insuln Asp Prt/Insulin Aspart 5 unit SQ BID 10/05/17 10/20/17 [NovoLOG MIX 70-30 VIAL] Previous Rx's Medication Instructions Recorded Losartan Potassium [Cozaar] 100 mg PO DAILY 30 Days tab 07/27/15 Isosorbide Mononitrate ER [Imdur] 30 mg PO DAILY #0 tab.er.24h 12/14/15 Cefuroxime [Ceftin] 500 mg PO BID 3 Days #6 tab 10/23/17 Allergies Allergy/AdvReac Type Severity Reaction Status Date / Time codeine Allergy Unknown Verified 10/20/17 16:27 latex Allergy Unknown Verified 10/20/17 16:27 levofloxacin [From Levaquin] Allergy Unknown Verified 10/20/17 16:27 nitrofurantoin Allergy Unknown Verified 10/20/17 16:27 macrocrystalline [From Macrodantin] Penicillins Allergy Unknown Verified 10/20/17 16:27 propoxyphene napsylate Allergy Unknown Verified 10/20/17 16:27 [From Darvocet-N 100] shellfish derived Allergy Unknown Verified 10/20/17 16:27 Sulfa (Sulfonamide Allergy Unknown Verified 10/20/17 16:27 Antibiotics) Review of Systems ROS Statement: Those systems with pertinent positive or pertinent negative responses have been documented in the HPI. ROS Other: All systems not noted in ROS Statement are negative. Past Medical History Past Medical History: Coronary Artery Disease (CAD), Cancer, Heart Failure, CVA/ TIA, Dementia, Diabetes Mellitus, Hyperlipidemia, Hypertension, Memory Impairment Additional Past Medical History / Comment(s): DIZZINESS, colon cancer, mild cognitive impairment(aricept),occipital stroke w/mild rt sided weakness, djd( spine) History of Any Multi-Drug Resistant Organisms: None Reported Past Surgical History: Appendectomy, Cholecystectomy, Heart Catheterization With Stent, Tonsillectomy Additional Past Surgical History / Comment(s): partial colon resection d/t ca, rods left leg from fracture. Past Anesthesia/Blood Transfusion Reactions: No Reported Reaction Date of Last Stent Placement:: 2001 Past Psychological History: Anxiety Smoking Status: Never smoker Past Alcohol Use History: Occasional Past Drug Use History: None Reported - Past Family History Father History Unknown: Yes Family Medical History: CVA/TIA Additional Family Medical History / Comment(s): PT'S DAD WAS AN ADOPTED CHILD AND SHE STATED DID'NT KNOW A LOT ABOUT HIS HX. Mother Family Medical History: CVA/TIA Additional Family Medical History / Comment(s): FROM A STROKE AT AGE 90 General Exam - General Exam Comments Initial Comments: General: The patient is awake and alert, in no obvious distress but Arnaldo she has dementia Skin: Skin is warm and dry and no rashes or lesions are noted. Eye: Pupils are equal, round and reactive to light, extra-ocular movements are intact; there is normal conjunctiva bilaterally. Ears, nose, mouth and throat: There are moist mucous membranes and no oral lesions. Neck: The neck is supple, there is no tenderness or JVD. Cardiovascular: There is a regular rate and rhythm. No murmur, rub or gallop is appreciated. Respiratory: To auscultation bilateral, no wheezing no rhonchi no distress respiratory montez noticed Gastrointestinal: Soft, non-distended, non-tender abdomen without masses or organomegaly noted. There is no rebound or guarding present. Bowel sounds are unremarkable. Back: There is no tenderness to palpation in the midline. There is no obvious deformity. Musculoskeletal: Normal ROM, no tenderness, There is no pedal edema. There is no calf tenderness or swelling. No cords were appreciated. Neurological: CN II-XII intact, Cranial nerves III through XII are intact. There are no obvious motor or sensory deficits. Coordination appears grossly intact. Speech is normal. Psychiatric: Cooperative, pleasant but confused Limitations: altered mental status Course Vital Signs 11/10/17 11/10/17 21:19 22:17 Temperature 98.9 F Pulse Rate 68 89 Respiratory 16 18 Rate Blood Pressure 189/97 168/84 O2 Sat by Pulse 94 L 96 Oximetry EKG is normal sinus rhythm medical rate is 71 bpm MS interval is 200 QRS duration is 74 QT/QTc is 422/458, review of this EKG does show flattening of the T-wave in lead [address] elevation or ST depression noticed in the rest of the leads She is reassessed at term 1120, head CT is normal urinalysis is positive CBC, INR, compressive metabolic panel are unremarkable she be admitted to Dr. Acuña' s service and then probably the knee replacement and I am group home - Reevaluation(s) Reevaluation #1: Patient's daughter left her messages are secondary that she is quite confused and now she is not fit to go back to her residence, where she is now he requested admission so after that she could be sent to [facility] where Dementia people are more safe 11/10/17 22:23 Medical Decision Making - Lab Data Result diagrams: 11/10/17 21:32 11/10/17 21:32 Lab Results 11/10/17 11/10/17 11/10/17 Range/Units 21:32 21:32 21:32 WBC 5.0 (3.8-10.6) k/uL RBC 4.53 (3.80-5.40) m/uL Hgb 13.8 (11.4-16.0) gm/dL Hct 42.7 (34.0-46.0) % MCV 94.2 (80.0-100.0) fL MCH 30.4 (25.0-35.0) pg MCHC 32.3 (31.0-37.0) g/dL RDW 13.4 (11.5-15.5) % Plt Count 202 (150-450) k/uL Neutrophils % 62 % Lymphocytes % 26 % Monocytes % 5 % Eosinophils % 3 % Basophils % 1 % Neutrophils # 3.1 (1.3-7.7) k/uL Lymphocytes # 1.3 (1.0-4.8) k/uL Monocytes # 0.2 (0-1.0) k/uL Eosinophils # 0.1 (0-0.7) k/uL Basophils # 0.0 (0-0.2) k/uL PT (9.0-12.0) sec INR (<1.2) APTT (22.0-30.0) sec Sodium 141 (137-145) mmol/L Potassium 4.4 (3.5-5.1) mmol/L Chloride 104 (98-107) mmol/L Carbon Dioxide 28 (22-30) mmol/L Anion Gap 9 mmol/L BUN 19 H (7-17) mg/dL Creatinine 0.80 (0.52-1.04) mg/dL Est GFR (MDRD) Af Amer >60 (>60 ml/min/1.73 sqM) Est GFR (MDRD) Non-Af >60 (>60 ml/min/1.73 sqM) Glucose 154 H (74-99) mg/dL Calcium 9.3 (8.4-10.2) mg/dL Total Bilirubin 0.5 (0.2-1.3) mg/dL AST 16 (14-36) U/L ALT 19 (9-52) U/L Alkaline Phosphatase 105 (38-126) U/L Total Creatine Kinase 28 L (30-135) U/L CK-MB (CK-2) 0.6 (0.0-2.4) ng/mL CK-MB (CK-2) Rel Index 2.1 Troponin I <0.012 (0.000-0.034) ng/mL Total Protein 6.2 L (6.3-8.2) g/dL Albumin 3.6 (3.5-5.0) g/dL Urine Color Urine Appearance (Clear) Urine pH (5.0-8.0) Ur Specific [place] (1.001-1.035) Urine Protein (Negative) Urine Glucose (UA) (Negative) Urine Ketones (Negative) Urine Blood (Negative) Urine Nitrite (Negative) Urine Bilirubin (Negative) Urine Urobilinogen (<2.0) mg/dL Ur Leukocyte Esterase (Negative) Urine RBC (0-5) /hpf Urine WBC (0-5) /hpf Ur Squamous Epith Cells (0-4) /hpf Urine Opiates Screen (NotDetected) Ur Oxycodone Screen (NotDetected) Urine Methadone Screen (NotDetected) Ur Propoxyphene Screen (NotDetected) Ur Barbiturates Screen (NotDetected) U Tricyclic Antidepress (NotDetected) Ur Phencyclidine Scrn (NotDetected) Ur Amphetamines Screen (NotDetected) U Methamphetamines Scrn (NotDetected) U Benzodiazepines Scrn (NotDetected) Urine Cocaine Screen (NotDetected) U Marijuana (THC) Screen (NotDetected) 11/10/17 11/10/17 Range/Units 21:32 22:14 WBC (3.8-10.6) k/uL RBC (3.80-5.40) m/uL Hgb (11.4-16.0) gm/dL Hct (34.0-46.0) % MCV (80.0-100.0) fL MCH (25.0-35.0) pg MCHC (31.0-37.0) g/dL RDW (11.5-15.5) % Plt Count (150-450) k/uL Neutrophils % % Lymphocytes % % Monocytes % % Eosinophils % % Basophils % % Neutrophils # (1.3-7.7) k/uL Lymphocytes # (1.0-4.8) k/uL Monocytes # (0-1.0) k/uL Eosinophils # (0-0.7) k/uL Basophils # (0-0.2) k/uL PT 11.4 (9.0-12.0) sec INR 1.2 H (<1.2) APTT 22.3 (22.0-30.0) sec Sodium (137-145) mmol/L Potassium (3.5-5.1) mmol/L Chloride (98-107) mmol/L Carbon Dioxide (22-30) mmol/L Anion Gap mmol/L BUN (7-17) mg/dL Creatinine (0.52-1.04) mg/dL Est GFR (MDRD) Af Amer (>60 ml/min/1.73 sqM) Est GFR (MDRD) Non-Af (>60 ml/min/1.73 sqM) Glucose (74-99) mg/dL Calcium (8.4-10.2) mg/dL Total Bilirubin (0.2-1.3) mg/dL AST (14-36) U/L ALT (9-52) U/L Alkaline Phosphatase (38-126) U/L Total Creatine Kinase (30-135) U/L CK-MB (CK-2) (0.0-2.4) ng/mL CK-MB (CK-2) Rel Index Troponin I (0.000-0.034) ng/mL Total Protein (6.3-8.2) g/dL Albumin (3.5-5.0) g/dL Urine Color Light Yellow Urine Appearance Clear (Clear) Urine pH 6.5 (5.0-8.0) Ur Specific [place] 1.009 (1.001-1.035) Urine Protein Negative (Negative) Urine Glucose (UA) Negative (Negative) Urine Ketones Negative (Negative) Urine Blood Negative (Negative) Urine Nitrite Negative (Negative) Urine Bilirubin Negative (Negative) Urine Urobilinogen <2.0 (<2.0) mg/dL Ur Leukocyte Esterase Moderate H (Negative) Urine RBC 2 (0-5) /hpf Urine WBC 16 H (0-5) /hpf Ur Squamous Epith Cells <1 (0-4) /hpf Urine Opiates Screen Not Detected (NotDetected) Ur Oxycodone Screen Not Detected (NotDetected) Urine Methadone Screen Not Detected (NotDetected) Ur Propoxyphene Screen Not Detected (NotDetected) Ur Barbiturates Screen Not Detected (NotDetected) U Tricyclic Antidepress Not Detected (NotDetected) Ur Phencyclidine Scrn Not Detected (NotDetected) Ur Amphetamines Screen Not Detected (NotDetected) U Methamphetamines Scrn Not Detected (NotDetected) U Benzodiazepines Scrn Not Detected (NotDetected) Urine Cocaine Screen Not Detected (NotDetected) U Marijuana (THC) Screen Not Detected (NotDetected) Disposition Clinical Impression: Confusion, Dementia, UTI (urinary tract infection) Disposition: ADMITTED IP TO THIS HOSP Condition: Good Referrals: Juan Pablo Kim MD [Primary Care Provider] - 1-2 days
[2017-11-10 22:15] LABS: Basophils % (A) 1 %; Eosinophils # (A) 0.1 k/uL (0-0.7); Eosinophils % (A) 3 %; HCT 42.7 % (34.0-46.0); HGB 13.8 gm/dL (11.4-16.0); Lymphocytes # (A) 1.3 k/uL (1.0-4.8); Lymphocytes % (A) 26 %; MCH 30.4 pg (25.0-35.0); MCHC 32.3 g/dL (31.0-37.0); MCV 94.2 fL (80.0-100.0); Mean Platelet Volume 7.7; Monocytes # (A) 0.2 k/uL (0-1.0); Monocytes % (A) 5 %; Neutrophils # (A) 3.1 k/uL (1.3-7.7); Neutrophils % (A) 62 %; Platelet Count 202 k/uL (150-450); RBC 4.53 m/uL (3.80-5.40); RDW 13.4 % (11.5-15.5)
[2017-11-10 22:25] LABS: ALT 19 U/L (9-52); AST 16 U/L (14-36); Albumin 3.6 g/dL (3.5-5.0); Alkaline Phosphatase 105 U/L (38-126); Anion Gap 9 mmol/L; Blood Urea Nitrogen 19 mg/dL (7-17); Calcium 9.3 mg/dL (8.4-10.2); Carbon Dioxide 28 mmol/L (22-30); Chloride 104 mmol/L (98-107); Glucose 154 mg/dL (74-99); INR 1.2 (<1.2); Partial Thromboplastin Time 22.3 sec (22.0-30.0); Potassium 4.4 mmol/L (3.5-5.1); Prothrombin Time 11.4 sec (9.0-12.0); Sodium 141 mmol/L (137-145); Total Bilirubin 0.5 mg/dL (0.2-1.3); Total Protein 6.2 g/dL (6.3-8.2)
[2017-11-10 22:33] LABS: Appearance,Urine Clear (Clear); Bilirubin,Urine Negative (Negative); Blood,Urine Negative (Negative); Color,Urine Light Yellow; Glucose,Urine (UA) Negative (Negative); Ketones,Urine Negative (Negative); Leukocyte Esterase,Urine Moderate (Negative); PH, Urine 6.5 (5.0-8.0); Protein,Urine Negative (Negative); RBC,Urine 2 /hpf (0-5); Specific Gravity,Urine 1.009 (1.001-1.035); Squamous Epithelial Cell,Urine <1 /hpf (0-4); Urobilinogen,Urine <2.0 mg/dL (<2.0); WBC,Urine 16 /hpf (0-5)
[2017-11-10 22:34] LABS: Amphetamine Screen,Urine Not Detected (NotDetected); Barbiturate Screen,Urine Not Detected (NotDetected); Benzodiazepines Screen,Urine Not Detected (NotDetected); Cocaine Screen,Urine Not Detected (NotDetected); Methadone Screen, Urine Not Detected (NotDetected); Opiate Screen,Urine Not Detected (NotDetected); Oxycodone Screen, Urine Not Detected (NotDetected); Phencyclidine Screen,Urine Not Detected (NotDetected); Tricyclic Antidepressant,Urine Not Detected (NotDetected); Urn Cannabinoid Scrn Not Detected (NotDetected)
[2017-11-10 22:39] LABS: Creatine Kinase 28 U/L (30-135)
[2017-11-10 22:51] LABS: Creatine Kinase MB 0.6 ng/mL (0.0-2.4); Troponin I <0.012 ng/mL (0.000-0.034)
--- NOTE | 2017-11-10 22:58 | CT ---
EXAMINATION TYPE: CT brain wo con DATE OF EXAM: 11/10/2017 COMPARISON: October HISTORY: Altered mental status. CT DLP: 819.10 mGycm Automated exposure control for dose reduction was used. FINDINGS: There is a 4 x 3 cm area of irregular hypodensity in the left occipital lobe consistent with encephal omalacia and old infarct. There is no midline shift. There is no sign of intracranial hemorrhage. The re is cerebral cortical atrophy. There is mild enlargement of the ventricles. Calvarium is intact. Th ere is patchy hypodensity in the periventricular white matter. IMPRESSION: CEREBRAL ATROPHY AND CHRONIC SMALL VESSEL ISCHEMIA. OLD LEFT OCCIPITAL LOBE INFARCT. NO ACUTE INTRACR ANIAL ABNORMALITY.
--- NOTE | 2017-11-10 22:59 | XR ---
EXAMINATION TYPE: XR chest 2V DATE OF EXAM: 11/10/2017 COMPARISON: October 20, 2017 HISTORY: Altered mental status TECHNIQUE: Frontal and lateral views of the chest are obtained. FINDINGS: There is no heart failure nor confluent pneumonic infiltrate. Thoracic aorta is atheromato us. Costophrenic angles are clear. Bony thorax is intact. IMPRESSION: No active cardiopulmonary disease. Inspiration is improved compared to old exam.
[2017-11-11 00:34] VITALS: BMI 23.9
[2017-11-11 07:22] LABS: Glucose,Whole Blood 162 mg/dL (75-99)
[2017-11-11] MEDS: ISOSORBIDE MONONITRATE ER 30 MG TAB.ER.24H PO SCH (07:46)
[2017-11-11] MEDS: CEFUROXIME 250 MG TAB PO SCH ×2 (07:46→21:16)
[2017-11-11] MEDS: LOSARTAN 50 MG TAB PO SCH (07:46)
[2017-11-11] MEDS: metFORMIN 500 MG TAB PO SCH ×2 (07:47→16:36)
[2017-11-11] MEDS: ASPIRIN 81 MG PO SCH (07:47)
[2017-11-11] MEDS: CITALOPRAM HYDROBROMIDE 10 MG TAB PO SCH (07:47)
[2017-11-11] MEDS ORDERED: CLOPIDOGREL 75 MG TAB PO SCH (09:00)
[2017-11-11 12:30] LABS: Glucose,Whole Blood 179 mg/dL (75-99)
[2017-11-11 17:05] LABS: Glucose,Whole Blood 155 mg/dL (75-99)
[2017-11-11] MEDS: CLOPIDOGREL 75 MG TAB PO SCH (17:26)
--- NOTE | 2017-11-11 20:09 | P.HPIM ---
History of Present Illness H&P Date: 11/11/17 Chief Complaint: mental status change, patient wandered outside of [facility] this is a pleasant 87-year-old gentleman patient of Dr. Arnaldo Kim. She has underlying history of dementia, and currently resides at [facility], assisted living facility.she has underlying history of dementia, diabetes mellitus type 2, CAD, hyperlipidemia, colon cancer, CK D stage II, new-onset atrial fibrillation diagnosed 10/20/17 Patient was recently admitted on [address] 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 She was sent into the emergency room secondary to her wandering around outside [facility] without anynotification to nursing staff, and [facility] increased, and is not thought to be safe to be at that facility. She also was noted to have mild urinary tract infection with some pyuria during this examination, patient denies any fever, no chills, no respiratory events,, patient had a urine culture from 10/21/2017 which failed to reveal any urinary tract infection. She was admitted to the service of Dr. Mahin Kim during her last admission, patient is unsure on who her current PCP is. Her biographical insurance information shows Dr. Arnaldo Kim as PCP when seen in emergency room, patient was pleasantly confused and cannot provide much of the history, she had an EKG that shows sinus rhythmanalysis shows mild pyuria,his x-ray shows no acute disease Review of Systems Constitutional: Reports as per HPI, Denies anorexia, Denies chills, Denies chronic headaches, Denies chronic pain, Denies daytime sleepiness, Denies fatigue, Denies fever, Denies lethargy, Denies malaise, Denies night sweats, Denies poor appetite, Denies sweats, Denies weakness, Denies weight gain, Denies weight loss Ears, nose, mouth and throat: Reports as per HPI, Denies ant. neck pain, Denies bleeding gums, Denies dental pain, Denies dysphagia, Denies epistaxis, Denies headache, Denies hoarseness, Denies mouth pain, Denies nasal congestion, Denies nasal discharge, Denies neck fullness/pressure, Denies neck lump, Denies nose pain, Denies odynophagia, Denies post-nasal drip, Denies sinus pain, Denies sinus pressure, Denies swelling in mouth, Denies swelling in throat, Denies sore throat, Denies vertigo, Denies voice changes Cardiovascular: Reports as per HPI, Denies chest pain, Denies claudication, Denies decreased exercise tolerance, Denies dyspnea on exertion, Denies edema, Denies high blood pressure, Denies irregular heart beat, Denies leg edema, Denies lightheadedness, Denies orthopnea, Denies palpitations, Denies paroxysmal nocturnal dyspnea, Denies phlebitis, Denies rapid heart beat, Denies shortness of breath, Denies syncope Respiratory: Reports as per HPI, Denies congestion, Denies cough, Denies cough with sputum, Denies dyspnea, Denies excessive sputum, Denies hemoptysis, Denies home oxygen, Denies pain, Denies pain on inspiration, Denies pleurisy, Denies respiratory infections, Denies sleep apnea, Denies snoring, Denies wheezing Gastrointestinal: Reports as per HPI, Reports hematochezia, Denies abdominal pain, Denies belching, Denies bloating, Denies BRBPR, Denies change in bowel habits, Denies coffee ground emesis, Denies diarrhea, Denies excessive gas, Denies heartburn, Denies indigestion, Denies jaundice, Denies loss of appetite, Denies melena, Denies nausea, Denies vomiting Genitourinary: Reports as per HPI Menstruation: Reports as per HPI Musculoskeletal: Reports as per HPI Integumentary: Reports as per HPI Neurological: Reports as per HPI, Reports confusion, Reports memory loss Psychiatric: Reports as per HPI Endocrine: Reports as per HPI Hematologic/Lymphatic: Reports as per HPI Allergic/Immunologic: Reports as per HPI Past Medical History Past Medical History: Coronary Artery Disease (CAD), Cancer, Heart Failure, CVA/ TIA, Dementia, Diabetes Mellitus, Hyperlipidemia, Hypertension, Memory Impairment Additional Past Medical History / Comment(s): DIZZINESS, colon cancer, mild cognitive impairment(aricept),occipital stroke w/mild rt sided weakness, djd( spine) History of Any Multi-Drug Resistant Organisms: None Reported Past Surgical History: Appendectomy, Cholecystectomy, Heart Catheterization With Stent, Tonsillectomy Additional Past Surgical History / Comment(s): partial colon resection d/t ca, rods left leg from fracture. Past Anesthesia/Blood Transfusion Reactions: No Reported Reaction Date of Last Stent Placement:: 2001 Past Psychological History: Anxiety Additional Psychological History / Comment(s): Lives at [facility] Smoking Status: Never smoker Past Alcohol Use History: Occasional Past Drug Use History: None Reported - Past Family History Father History Unknown: Yes Family Medical History: CVA/TIA Additional Family Medical History / Comment(s): PT'S DAD WAS AN ADOPTED CHILD AND SHE STATED DID'NT KNOW A LOT ABOUT HIS HX. Mother Family Medical History: CVA/TIA Additional Family Medical History / Comment(s): FROM A STROKE AT AGE 90 Medications and Allergies Home Medications Medication Instructions Recorded Confirmed Type Clopidogrel [Plavix] 75 mg PO DAILY 06/26/14 11/11/17 History Metoprolol Tartrate 25 mg PO HS 06/26/14 11/11/17 History metFORMIN HCL [Glucophage] 500 mg PO BID 06/26/14 11/11/17 History Donepezil [Aricept] 10 mg PO DAILY 07/23/15 11/11/17 History Meclizine [Antivert] 25 mg PO HS 07/23/15 11/11/17 History Losartan Potassium [Cozaar] 100 mg PO DAILY 30 Days tab 07/27/15 11/11/17 Rx Isosorbide Mononitrate ER [Imdur] 30 mg PO DAILY #0 tab.er.24h 12/14/15 Rx Aspirin EC [Ecotrin Low Dose] 81 mg PO DAILY 10/05/17 11/11/17 History Citalopram Hydrobromide [CeleXA] 10 mg PO DAILY 10/05/17 11/11/17 History Insuln Asp Prt/Insulin Aspart 5 unit SQ BID 10/05/17 11/11/17 History [NovoLOG MIX 70-30 VIAL] Melatonin 5 mg PO HS 11/11/17 11/11/17 History Allergies Allergy/AdvReac Type Severity Reaction Status Date / Time codeine Allergy Unknown Verified 11/11/17 08:32 latex Allergy Unknown Verified 11/11/17 08:32 levofloxacin [From Levaquin] Allergy Unknown Verified 11/11/17 08:32 nitrofurantoin Allergy Unknown Verified 11/11/17 08:32 macrocrystalline [From Macrodantin] Penicillins Allergy Unknown Verified 11/11/17 08:32 propoxyphene napsylate Allergy Unknown Verified 11/11/17 08:32 [From Darvocet-N 100] shellfish derived Allergy Unknown Verified 11/11/17 08:32 Sulfa (Sulfonamide Allergy Unknown Verified 11/11/17 08:32 Antibiotics) Physical Exam Vitals: Vital Signs Temp Pulse Pulse Resp BP BP BP 11/11/17 16:00 16 11/11/17 15:00 99.2 F 98 16 122/71 11/11/17 06:03 97.9 F 82 20 153/78 11/11/17 01:44 74 20 11/11/17 00:20 98.5 F 74 20 153/72 11/10/17 23:20 98.8 F 100 18 154/78 11/10/17 22:17 89 18 168/84 11/10/17 21:19 98.9 F 68 16 189/97 Pulse Ox 11/11/17 16:00 11/11/17 15:00 93 L 11/11/17 06:03 94 L 11/11/17 01:44 11/11/17 00:20 95 11/10/17 23:20 96 11/10/17 22:17 96 11/10/17 21:19 94 L Intake and Output 11/11/17 11/11/17 11/11/17 06:59 14:59 22:59 Intake Total 100 240 Balance 100 240 Intake: Oral 100 240 Other: Voiding Method Bedside Commode Bedside Commode # Voids 3 3 # Bowel Movements 1 Weight 61.235 kg - Constitutional General appearance: average body habitus, cooperative, no acute distress - EENT Eyes: anicteric sclerae, EOMI, PERRLA, dentition normal ENT: NA/AT - Neck Neck: no lymphadenopathy, normal ROM, no other, no rigidity, no stridor, no thyromegaly - Respiratory Respiratory: bilateral: CTA, negative: diminished, dullness, rales, rhonchi - Cardiovascular Rhythm: regular Heart sounds: normal: S1, S2 Abnormal Heart Sounds: no systolic murmur, no diastolic murmur, no rub, no S3 Gallop, no S4 Gallop, no click, no other - Gastrointestinal General gastrointestinal: normal bowel sounds, soft - Integumentary Integumentary: decreased turgor, normal - Neurologic Neurologic: CNII-XII intact - Musculoskeletal Musculoskeletal: gait normal, strength equal bilaterally - Psychiatric Psychiatric: A&O x's 3 (oriented 1) Results CBC & Chem 7: 11/10/17 21:32 11/10/17 21:32 Labs: Abnormal Lab Results - Last 24 Hours (Table) 11/10/17 11/10/17 11/10/17 Range/Units 21:32 21:32 21:32 INR 1.2 H (<1.2) BUN 19 H (7-17) mg/dL Glucose 154 H (74-99) mg/dL POC Glucose (mg/dL) (75-99) mg/dL Total Creatine Kinase 28 L (30-135) U/L Total Protein 6.2 L (6.3-8.2) g/dL Ur Leukocyte Esterase (Negative) Urine WBC (0-5) /hpf 11/10/17 11/11/17 11/11/17 Range/Units 22:14 07:15 12:25 INR (<1.2) BUN (7-17) mg/dL Glucose (74-99) mg/dL POC Glucose (mg/dL) 162 H 179 H (75-99) mg/dL Total Creatine Kinase (30-135) U/L Total Protein (6.3-8.2) g/dL Ur Leukocyte Esterase Moderate H (Negative) Urine WBC 16 H (0-5) /hpf 11/11/17 Range/Units 17:03 INR (<1.2) BUN (7-17) mg/dL Glucose (74-99) mg/dL POC Glucose (mg/dL) 155 H (75-99) mg/dL Total Creatine Kinase (30-135) U/L Total Protein (6.3-8.2) g/dL Ur Leukocyte Esterase (Negative) Urine WBC (0-5) /hpf Laboratory Results WBC 5.0 k/uL (3.8-10.6) 11/10/17 21:32 RBC 4.53 m/uL (3.80-5.40) 11/10/17 21: Hgb 13.8 gm/dL (11.4-16.0) 11/10/17 21: Hct 42.7 % (34.0-46.0) 11/10/17: MCV 94.2 fL (80.0-100.0) 11/10/17: MCH 30.4 pg (25.0-35.0) 11/10/17 21: MCHC 32.3 g/dL (31.0-37.0) 11/10/17: RDW 13.4 % (11.5-15.5) 11/10/17: Plt Count 202 k/uL (150-450) 11/10/17 21: Neutrophils % 62 % 11/10/17: Lymphocytes % 26 % 11/10/17: Monocytes % 5 % 11/10/17: Eosinophils % 3 % 11/10/17: Basophils % 1 % 11/10/17: Neutrophils # 3.1 k/uL (1.3-7.7) 11/10/17: Lymphocytes # 1.3 k/uL (1.0-4.8) 11/10/17: Monocytes # 0.2 k/uL (0-1.0) 11/10/17: Eosinophils # 0.1 k/uL (0-0.7) 11/10/17: Basophils # 0.0 k/uL (0-0.2) 11/10/17: PT 11.4 sec (9.0-12.0) 11/10/17: INR 1.2 (<1.2) H 11/10/17: APTT 22.3 sec (22.0-30.0) 11/10/17 21: Sodium 141 mmol/L (137-145) 11/10/17 21: Potassium 4.4 mmol/L (3.5-5.1) 11/10/17 21: Chloride 104 mmol/L (98-107) 11/10/17: Carbon Dioxide 28 mmol/L (22-30) 11/10/17 21:32 Anion Gap 9 mmol/L 11/10/17 21:32 BUN 19 mg/dL (7-17) H 11/10/17 21:32 Creatinine 0.80 mg/dL (0.52-1.04) 11/10/17 21:32 Est GFR (MDRD) Af Amer >60 (>60 ml/min/1.73 sqM) 11/10/17 21:32 Est GFR (MDRD) Non-Af >60 (>60 ml/min/1.73 sqM) 11/10/17 21:32 Glucose 154 mg/dL (74-99) H 11/10/17 21:32 POC Glucose (mg/dL) 155 mg/dL (75-99) H 11/11/17 17:03 POC Glu [employer] Project Manager ID Suzette Cotto 11/11/17 17:03 Calcium 9.3 mg/dL (8.4-10.2) 11/10/17 21:32 Total Bilirubin 0.5 mg/dL (0.2-1.3) 11/10/17 21:32 AST 16 U/L (14-36) 11/10/17 21:32 ALT 19 U/L (9-52) 11/10/17 21:32 Alkaline Phosphatase 105 U/L (38-126) 11/10/17 21:32 Total Creatine Kinase 28 U/L (30-135) L 11/10/17 21:32 CK-MB (CK-2) 0.6 ng/mL (0.0-2.4) 11/10/17 21: CK-MB (CK-2) Rel Index 2.1 11/10/17 21:32 Troponin I <0.012 ng/mL (0.000-0.034) 11/10/17 21:32 Total Protein 6.2 g/dL (6.3-8.2) L 11/10/17 21:32 Albumin 3.6 g/dL (3.5-5.0) 11/10/17 21:32 Urine Color Light Yellow 11/10/17 22:14 Urine Appearance Clear (Clear) 11/10/17 22:14 Urine pH 6.5 (5.0-8.0) 11/10/17 22:14 Ur Specific [place] 1.009 (1.001-1.035) 11/10/17 22:14 Urine Protein Negative (Negative) 11/10/17 22:14 Urine Glucose (UA) Negative (Negative) 11/10/17 22:14 Urine Ketones Negative (Negative) 11/10/17 22:14 Urine Blood Negative (Negative) 11/10/17 22:14 Urine Nitrite Negative (Negative) 11/10/17 22:14 Urine Bilirubin Negative (Negative) 11/10/17 22:14 Urine Urobilinogen <2.0 mg/dL (<2.0) 11/10/17 22:14 Ur Leukocyte Esterase Moderate (Negative) H 11/10/17 22:14 Urine RBC 2 /hpf (0-5) 11/10/17 22:14 Urine WBC 16 /hpf (0-5) H 11/10/17 22:14 Ur Squamous Epith Cells <1 /hpf (0-4) 11/10/17 22:14 Urine Opiates Screen Not Detected (NotDetected) 11/10/17 22:14 Ur Oxycodone Screen Not Detected (NotDetected) 11/10/17 22:14 Urine Methadone Screen Not Detected (NotDetected) 11/10/17 22:14 Ur Propoxyphene Screen Not Detected (NotDetected) 11/10/17 22:14 Ur Barbiturates Screen Not Detected (NotDetected) 11/10/17 22:14 U Tricyclic Antidepress Not Detected (NotDetected) 11/10/17 22:14 Ur Phencyclidine Scrn Not Detected (NotDetected) 11/10/17 22:14 Ur Amphetamines Screen Not Detected (NotDetected) 11/10/17 22:14 U Methamphetamines Scrn Not Detected (NotDetected) 11/10/17 22:14 U Benzodiazepines Scrn Not Detected (NotDetected) 11/10/17 22:14 Urine Cocaine Screen Not Detected (NotDetected) 11/10/17 22:14 U Marijuana (THC) Screen Not Detected (NotDetected) 11/10/17 22:14 Thrombosis Risk Factor Assmnt - DVT/VTE Prophylaxis DVT/VTE Prophylaxis: Pharmacologic Prophylaxis ordered - Choose All That Apply Any of the Below Risk Factors Present?: Yes Each Factor Represents 1 point: Swollen legs (current) Each Risk Factor Represents 3 Points: Age 75 years or older Thrombosis Risk Factor Assessment Total Risk Factor Score: 4 Thrombosis Risk Factor Assessment Level: Moderate Risk Assessment and Plan Plan: 1. Altered mentation with wandering risk, facility is unable to provide current safety needs, patient would need to be resected treated to another facility that could provide 24-hour supervision, the social media strategist would be following her with expectations to long-term care in a [facility] facility. Her current domicile provides inadequate means of surveillance. 2. Advanced dementia, on Aricept, she had a full workup done recently from her last admission 10/21/2017 by neurology and cardiology. 3. Pyuria, possibility of a knot tract infection. However, recent cultures failed to reveal any pathogen cultures have been sent, patient is empirically started on antibiotics IV. 4. History of diabetes mellitus type 2, on metformin 500 mg twice a day 5. Hypothyroidism on levothyroxine 50 g daily. 6 Hyperlipidemia on Lipitor 40. 7 Paroxysmal atrial fibrillationcurrently sinus rhythm, maintained on metoprolol 25 mg at bedtimethe possibility of cardiac consultation should symptoms decompensate.continue diltiazem 125 mg 8 Prior history of old CVA no acute symptoms besides memory loss and wanderingissues, on aspirin 9 CAD with prior cardiac stents, on metoprolol 25 mg at bedtime and Cozaar 100 mg daily, Imdur 30 mg dailyPlavix 75 mg daily. No changes made 10 hypertensive card vascular disease. On Cozaar 100 mg daily, Imdur 30 mg daily 7. DVT prophylaxis with early ambulation 8 GI prophylaxis on Pepcid, 9 discharge planning [facility], she has completed at least 72 hours of stay from her last admission in early October
[2017-11-11 20:49] LABS: Glucose,Whole Blood 201 mg/dL (75-99)
[2017-11-11] MEDS: DONEPEZIL 10 MG TAB PO SCH (21:16)
[2017-11-11] MEDS: METOPROLOL TARTRATE 25 MG TAB PO SCH (21:16)
[2017-11-11] MEDS: MECLIZINE 25 MG TAB PO SCH (21:17)
[2017-11-12 07:11] LABS: Glucose,Whole Blood 164 mg/dL (75-99)
[2017-11-12] MEDS: CEFUROXIME 250 MG TAB PO SCH ×2 (08:19→20:06)
[2017-11-12] MEDS: ASPIRIN 81 MG PO SCH (08:19)
[2017-11-12] MEDS: metFORMIN 500 MG TAB PO SCH ×2 (08:20→16:59)
[2017-11-12] MEDS: LOSARTAN 50 MG TAB PO SCH (08:20)
[2017-11-12] MEDS: CITALOPRAM HYDROBROMIDE 10 MG TAB PO SCH (08:20)
[2017-11-12] MEDS: ISOSORBIDE MONONITRATE ER 30 MG TAB.ER.24H PO SCH (08:20)
[2017-11-12] MEDS: CLOPIDOGREL 75 MG TAB PO SCH (17:00)
[2017-11-12] MEDS: MECLIZINE 25 MG TAB PO SCH (20:06)
[2017-11-12] MEDS: METOPROLOL TARTRATE 25 MG TAB PO SCH (20:06)
[2017-11-12] MEDS: DONEPEZIL 10 MG TAB PO SCH (20:06)
[2017-11-12 20:34] LABS: Glucose,Whole Blood 148 mg/dL (75-99)
--- NOTE | 2017-11-12 23:10 | PN ---
PROGRESS NOTE DATE OF SERVICE: 11/12/2017. SUBJECTIVE: 87-year-old white female with confusion, ambulating out in the hallways and outside at the [facility] home, unable to stay controlled at night, walking aimlessly, confused at night. Family cannot handle her, she will need a 24-hour dementia wing in care home or 24- hour watching over her care. Vital signs stable, afebrile. CARDIOVASCULAR: S1, S2. LUNGS: Clear. GI: Soft. HEMATOLOGY: Negative Homans. ASSESSMENT: 1. Confusion. 2. Urinary tract infection. 3. Suspect dementia with confusion. Advanced dementia. 4. Diabetes mellitus type 2. 5. Hypothyroidism. 6. Dyslipidemia. 7. Paroxysmal atrial fibrillation. 8. Prior cerebrovascular accident. 9. Coronary artery disease with prior stents. 10.Hypertensive cardiovascular disease. PLAN: Psych, neuro consult, care home, long-term care. MMODL / IJN: [id number] /
[2017-11-13 07:16] LABS: Glucose,Whole Blood 143 mg/dL (75-99)
[2017-11-13] MEDS: ASPIRIN 81 MG PO SCH (09:55)
[2017-11-13] MEDS: metFORMIN 500 MG TAB PO SCH ×2 (09:55→18:05)
[2017-11-13] MEDS: CEFUROXIME 250 MG TAB PO SCH ×2 (09:55→20:04)
[2017-11-13] MEDS: CITALOPRAM HYDROBROMIDE 10 MG TAB PO SCH (09:56)
[2017-11-13] MEDS: ISOSORBIDE MONONITRATE ER 30 MG TAB.ER.24H PO SCH (09:56)
[2017-11-13] MEDS: LOSARTAN 50 MG TAB PO SCH (09:56)
[2017-11-13 12:03] LABS: Glucose,Whole Blood 226 mg/dL (75-99)
--- NOTE | 2017-11-13 14:33 | P.CN ---
Psychiatric Consult - . Consult date: 11/13/17 Consult:: 11/13/17 14:18 Identification: Patient is an 87-year-old female who was brought to the emergency room with confusion and apparently leaving her residence at night. Reason for Consult: Confusion, ambulates at night outside History of Present Illness: Patient was recently admitted in October from the fourth to the 6 with a urinary tract infection and presented at that time with confusion. She was discharged to [facility] after that admission and then moved back to [facility] which is where she was living prior to her admission. Patient is a poor historian, the chart was reviewed and most of the history was obtained from the chart as well as speaking with nursing staff on the floor. Patient apparently also had a caregiver at [facility], I suspect during the day only. Patient was seen in her room no family members were present. Patient stated that she was "in the center" and thought she was here for rehab. She reported to me that she had been living alone at home she states that we were in the [facility]. Patient could not give me a history regarding what had happened other than that she states she was treated for a urinary tract infection recently and states that she was more confused at that time. Patient denies any prior psychiatric history. Patient has a diagnosis of dementia and is currently on Aricept as well as Celexa. Past Psychiatric History: Per the patient she has no prior psychiatric history Past Medical/Surgical History: Per the chart the patient has a diagnosis of diabetes mellitus, atrial fibrillation, coronary artery disease status post stent placement, hypertension Family History: Unable to obtain Social History: Patient states she was twice in the past, the first time and the second time but she is unable to tell me for how long she was to either spouse or when she was . She states she was born and raised in [place] both of her parents are . She has 2 sisters who are also . Patient states she has 3 children a son and 2 daughters and has 6 or 7 grandchildren. 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 Patient cannot tell me when she retired. Patient then stated that she was living at [facility] she is unsure for how long and stated that she likes living there. Substance Use History: Patient has no history of alcohol or drug use Mental status: Appearance/Attitude: Patient was sitting up in her bed in no acute distress, made good eye contact and was cooperative Behavior: Patient did not exhibit any psychomotor agitation or retardation. Speech/Language: Patient was not spontaneous only responding to my questions, she spoke in a normal volume and rhythm and was coherent Thought Process: Patient responded to many questions with she couldn't remember or didn't know Thought Content: Patient did not appear to be responding to internal stimuli, no delusional ideation was elicited. Patient stated she was eating well and reports that she slept last night Suicidal/Homicidal Ideation: Patient denied current suicidal or homicidal ideation Sensorium/Cognition: Patient was alert, oriented to person, not oriented to place she thought we were in [place] at a rehab center, she thought it was 1988 and it was fall. Patient thought she was 81 years of age and was unable to tell me who the executive vice president was. Patient was not formally tested, she could give me some past history. Mood/Affect: Patient's mood was pleasant and her affect was appropriate Insight/Judgment: Patient's insight and judgment are impaired Assessment: Patient has a diagnosis of dementia, was recently admitted and treated for a urinary tract infection and presented with confusion at that time. Patient was discharged to [facility] and then transferred back to [facility] where she was returned with confusion, and wandering out of the facility at night. Patient is again being treated for a urinary tract infection with oral antibiotics. It is unclear to me if the patient's baseline is any different than she is presenting today. She was not oriented to location , situation, date year or season but was able to feed herself, has some incontinence at night and does attempt to get out of bed here in the evening if the rails or not up per nursing staff. Patient is on Aricept as well as Celexa , I would assume that the Celexa was added to control agitation as the patient does not verbalize any symptoms of depression or state that she feels sad or depressed. Patient was not agitated or irritable when I saw her and was not able to tell me much of a history. Per the patient's computed tomography scan she has a left occipital old infarct, cerebral cortical atrophy and chronic small vessel ischemia Diagnosis: Unspecified neurocognitive disorder Plan: It is unclear what the patient's baseline is, she has presented to the emergency room on 2 occasions with urinary tract infection, she was recently treated and released and has returned with a urinary tract infection being treated this time with oral antibiotics. Patient has been living in an assisted living facility and was found wandering outside and it is unclear to me if this was secondary to the urinary tract infection or this is her baseline as her neurocognitive disorder has worsened. I spoke with social work regarding placement upon discharge which may need to be at a facility with 24- hour supervision, as the patient was wandering at night at the assisted living facility. Patient is currently not delirious and I do not know if she was prior to her admission or not and if this was the cause of her wandering or if the cause of her wandering is a worsening neurocognitive disorder. Patient has a neurocognitive disorder, etiology most likely secondary to multiple causes. Patient can be continued on her Celexa as this is used to treat irritability and agitation in patients with a neurocognitive disorder. We will sign off the case if there are any further questions please don't hesitate to contact me.
--- NOTE | 2017-11-13 15:55 | P.CNNES ---
History of Present Illness Consult date: 11/13/17 Reason for Consult: Patient admitted with worsening dementia and neurocognitive decline. History of Present Illness: This patient is a 87-year-old right-handed white female who was admitted to [facility] with symptoms of increasing confusion and wandering from her assisted living facility. The patient has been residing of [facility] [place] and apparently yesterday was noted by staff is wondering away from the facility. Apparently this happened only during the day hours. She was also showing increasing symptoms of confusion. She has a history of underlying dementia for which she has been taking Aricept 10 mg daily. She has been on the same dose for several years. The patient was brought into the emergency room for further evaluation. She underwent a computed tomography scan of the brain which revealed evidence of cerebral atrophy and chronic small vessel ischemia. There was evidence of an old left occipital lobe infarct. No evidence of acute stroke or hemorrhage. She was recently admitted to hospital in early October for treatment of urinary tract infection as well as worsening memory. Her memory has remained slightly progressive over the last year. She is a very poor historian but pleasantly confused. She is able to cooperate and answers all questions appropriately today at bedside. She states she was staying in the hospital when questioned where she is currently residing. She is only oriented to person at this time. Patient has also been treated for mild agitation and apparently has been taking Celexa. She was seen by psychiatry today were recommending that she would likely require 24-hour care with supervision and a extended care facility. She has been showing signs of worsening neurocognitive decline. The patient does have history of multiple other medical conditions including chronic atrial fibrillation. Currently she is in normal sinus rhythm and is being treated with metoprolol 25 mg at bedtime. She is also on diltiazem. We are waiting further recommendations from cardiology. The patient is resting comfortably in her bed this afternoon. She is able to follow only simple commands. She denies any headache or focal weakness on exam at this time. The patient does not show any evidence of acute delirium. She is not agitated on examination and is not irritable at this time. As noted psychiatry recommends to continue her on her current dose of Celexa. Due to decline in her neurocognitive functioning she is being considered for placement in 2 24-hour supervised extended care facility. Neurology is now been consulted for further evaluation and recommendations. Review of Systems Constitutional: Denies chills, Denies fever Eyes: denies blurred vision, denies pain Ears, nose, mouth and throat: Denies headache, Denies sore throat Cardiovascular: Denies chest pain, Denies shortness of breath Respiratory: Denies cough Gastrointestinal: Denies abdominal pain, Denies diarrhea, Denies nausea, Denies vomiting Genitourinary: Denies dysuria, Denies hematuria Musculoskeletal: Denies myalgias Integumentary: Denies pruritus, Denies rash Neurological: Reports change in mentation, Reports confusion, Reports memory loss, Reports tingling, Denies numbness, Denies weakness Psychiatric: Reports difficulty concentrating, Reports irritability, Reports memory loss, Denies anxiety, Denies depression Endocrine: Denies fatigue, Denies weight change Past Medical History Past Medical History: Coronary Artery Disease (CAD), Cancer, Heart Failure, CVA/ TIA, Dementia, Diabetes Mellitus, Hyperlipidemia, Hypertension, Memory Impairment Additional Past Medical History / Comment(s): DIZZINESS, colon cancer, mild cognitive impairment(aricept),occipital stroke w/mild rt sided weakness, djd( spine) History of Any Multi-Drug Resistant Organisms: None Reported Past Surgical History: Appendectomy, Cholecystectomy, Heart Catheterization With Stent, Tonsillectomy Additional Past Surgical History / Comment(s): partial colon resection d/t ca, rods left leg from fracture. Past Anesthesia/Blood Transfusion Reactions: No Reported Reaction Date of Last Stent Placement:: 2001 Past Psychological History: Anxiety Additional Psychological History / Comment(s): Lives at [facility] Smoking Status: Never smoker Past Alcohol Use History: Occasional Past Drug Use History: None Reported - Past Family History Father History Unknown: Yes Family Medical History: CVA/TIA Additional Family Medical History / Comment(s): PT'S DAD WAS AN ADOPTED CHILD AND SHE STATED DID'NT KNOW A LOT ABOUT HIS HX. Mother Family Medical History: CVA/TIA Additional Family Medical History / Comment(s): FROM A STROKE AT AGE 90 Medications and Allergies Home Medications Medication Instructions Recorded Confirmed Type Clopidogrel [Plavix] 75 mg PO DAILY 06/26/14 11/11/17 History Metoprolol Tartrate 25 mg PO HS 06/26/14 11/11/17 History metFORMIN HCL [Glucophage] 500 mg PO BID 06/26/14 11/11/17 History Donepezil [Aricept] 10 mg PO DAILY 07/23/15 11/11/17 History Meclizine [Antivert] 25 mg PO HS 07/23/15 11/11/17 History Losartan Potassium [Cozaar] 100 mg PO DAILY 30 Days tab 07/27/15 11/11/17 Rx Isosorbide Mononitrate ER [Imdur] 30 mg PO DAILY #0 tab.er.24h 12/14/15 Rx Aspirin EC [Ecotrin Low Dose] 81 mg PO DAILY 10/05/17 11/11/17 History Citalopram Hydrobromide [CeleXA] 10 mg PO DAILY 10/05/17 11/11/17 History Insuln Asp Prt/Insulin Aspart 5 unit SQ BID 10/05/17 11/11/17 History [NovoLOG MIX 70-30 VIAL] Melatonin 5 mg PO HS 11/11/17 11/11/17 History Allergies Allergy/AdvReac Type Severity Reaction Status Date / Time codeine Allergy Unknown Verified 11/11/17 08:32 latex Allergy Unknown Verified 11/11/17 08:32 levofloxacin [From Levaquin] Allergy Unknown Verified 11/11/17 08:32 nitrofurantoin Allergy Unknown Verified 11/11/17 08:32 macrocrystalline [From Macrodantin] Penicillins Allergy Unknown Verified 11/11/17 08:32 propoxyphene napsylate Allergy Unknown Verified 11/11/17 08:32 [From Darvocet-N 100] shellfish derived Allergy Unknown Verified 11/11/17 08:32 Sulfa (Sulfonamide Allergy Unknown Verified 11/11/17 08:32 Antibiotics) Physical Examination - Vital Signs Vital Signs: Vital Signs Temp Pulse Resp BP Pulse Ox 11/13/17 06:10 97.0 F L 83 17 156/81 94 L 11/12/17 22:52 96.3 F L 63 17 167/83 95 11/12/17 17:01 85 16 11/12/17 16:57 98.6 F 85 16 139/83 97 Intake and Output 11/13/17 11/13/17 11/13/17 06:59 14:59 22:59 Intake Total 480 Balance 480 Intake: Oral 480 Other: Voiding Method Bedside Commode Incontinent # Voids 3 2 # Bowel Movements 2 - Constitutional General appearance: average body habitus, cooperative - EENT EENT: PERRL, mucous membranes moist - Respiratory Respiratory: lungs clear, normal breath sounds - Cardiovascular Cardiovascular: regular rate, normal S1, normal S2 Extremities: no peripheral edema bilaterally - Gastrointestinal Gastrointestinal: normoactive bowel sounds - Integumentary Integumentary: normal - Neurologic Cranial nerve examination: PERRL, EOMI, V1/V2/V3 grossly intact, face symmetric , intact shoulder shrug, intact gag reflex, intact corneal reflex, normal palatal elevation Speech examination: intact Sensorimotor examination: intact Motor examination - right side: 4/5: biceps, triceps, wrist flexion, wrist extension, passenger service manager, hip flexors, knee extensors, dorsiflexion, toe extension (EHL) , plantarflexion Motor examination - left side: 4/5: biceps, triceps, wrist flexion, wrist extension, passenger service manager, hip flexors, knee extensors, dorsiflexion, toe extension (EHL) , plantarflexion Detailed sensory examination: intact Reflex and gait examination: intact Reflexes: 1+: ankle, bicep, knee, tricep - Musculoskeletal Musculoskeletal: no pain - Psychiatric Psychiatric: mood/affect appropriate, cooperative Results - Laboratory Findings CBC and BMP: 11/10/17 21:32 11/10/17 21:32 Abnormal Lab Findings: Abnormal Labs 11/10/17 11/10/17 11/10/17 21:32 21:32 21:32 INR 1.2 H BUN 19 H Glucose 154 H POC Glucose (mg/dL) Total Creatine Kinase 28 L Total Protein 6.2 L Ur Leukocyte Esterase Urine WBC 11/10/17 11/11/17 11/11/17 22:14 07:15 12:25 INR BUN Glucose POC Glucose (mg/dL) 162 H 179 H Total Creatine Kinase Total Protein Ur Leukocyte Esterase Moderate H Urine WBC 16 H 11/11/17 11/11/17 11/12/17 17:03 20:47 07:06 INR BUN Glucose POC Glucose (mg/dL) 155 H 201 H 164 H Total Creatine Kinase Total Protein Ur Leukocyte Esterase Urine WBC 11/12/17 11/13/17 11/13/17 20:32 06:57 11:48 INR BUN Glucose POC Glucose (mg/dL) 148 H 143 H 226 H Total Creatine Kinase Total Protein Ur Leukocyte Esterase Urine WBC Assessment and Plan (1) Dementia Current Visit: Yes Status: Acute Code(s): F03.90 - UNSPECIFIED DEMENTIA WITHOUT BEHAVIORAL DISTURBANCE SNOMED Code(s): 34824707 (2) Urinary tract infection Current Visit: Yes Status: Acute Code(s): N39.0 - URINARY TRACT INFECTION, SITE NOT SPECIFIED SNOMED Code(s): 12747331 (3) Acute encephalopathy Current Visit: No Status: Acute Code(s): G93.40 - ENCEPHALOPATHY, UNSPECIFIED SNOMED Code(s): 31733675 (4) Altered mental status Current Visit: No Status: Acute Code(s): R41.82 - ALTERED MENTAL STATUS, UNSPECIFIED SNOMED Code(s): 861583384 (5) Atrial fibrillation with RVR Current Visit: No Status: Acute Code(s): I48.91 - UNSPECIFIED ATRIAL FIBRILLATION SNOMED Code(s): 526269181754990 Plan: This patient is a 87-year-old female admitted with altered mental status and recent episode of wandering away from her assisted living facility at the [facility]. Patient is now requiring 24-hour supervision due to worsening neurocognitive decline. She is currently being treated for urinary tract infection and has responded well. Neurological examination is nonfocal today on examination. She does have history of underlying advanced dementia. She is to continue on current dose of Aricept. CAT scan of the brain is reviewed and reveals no evidence of acute stroke or hemorrhage. There is evidence of an old left occipital lobe infarct. Patient has history of chronic atrial fibrillation. We will continue close neurological follow-up for this patient. Would recommend social work consultation for discharge planning. Due to worsening neurocognitive decline she will require 24-hour care in an extended care facility with possible dementia unit. We will continue to follow her progress very closely. Patient is to be evaluated by psychiatry as well. We will await their recommendations. Overall prognosis at this time remains guarded. Time with Patient: Greater than 30
[2017-11-13 17:04] LABS: Glucose,Whole Blood 192 mg/dL (75-99)
[2017-11-13] MEDS: CLOPIDOGREL 75 MG TAB PO SCH (18:05)
[2017-11-13] MEDS: DONEPEZIL 10 MG TAB PO SCH (20:04)
[2017-11-13] MEDS: MECLIZINE 25 MG TAB PO SCH (20:04)
[2017-11-13] MEDS: METOPROLOL TARTRATE 25 MG TAB PO SCH (20:04)
[2017-11-13 20:28] LABS: Glucose,Whole Blood 222 mg/dL (75-99)
[2017-11-14 07:29] LABS: Glucose,Whole Blood 170 mg/dL (75-99)
[2017-11-14] MEDS: ASPIRIN 81 MG PO SCH (07:57)
[2017-11-14] MEDS: metFORMIN 500 MG TAB PO SCH ×2 (07:57→17:59)
[2017-11-14] MEDS: CEFUROXIME 250 MG TAB PO SCH ×2 (07:58→22:01)
[2017-11-14] MEDS: LOSARTAN 50 MG TAB PO SCH (07:58)
[2017-11-14] MEDS: ISOSORBIDE MONONITRATE ER 30 MG TAB.ER.24H PO SCH (07:58)
[2017-11-14] MEDS: CITALOPRAM HYDROBROMIDE 10 MG TAB PO SCH (07:58)
--- NOTE | 2017-11-14 16:14 | EEG ---
ELECTROENCEPHALOGRAM REPORT DATE OF EE11/14/2017. REFERRING PHYSICIAN: Dr. Mahin Kim. CONSULTING INTERPRETING PHYSICIAN: Dr. Yahaira Lou MD ELECTROENCEPHALOGRAPHIC EXAMINATION REPORT: INDICATION FOR EXAMINATION: This patient is a 87-year-old female being evaluated for worsening dementia and increased confusion. AGE: 87. EEG FINDINGS: A routine 21 channel awake digital EEG recording was accomplished utilizing the 10-20 international system with bipolar and referential montages. The background activity in the most alert resting state consists of a low to medium amplitude, poorly developed and poorly sustained 5-6 Hz activity over the posterior head regions. This posterior rhythm attenuates minimally to eye opening. There is a small amount of low amplitude 18-20 Hz beta activity seen maximally over the anterior head regions. Muscle and movement artifact was observed on a few occasions during the tracing. Hyperventilation was not performed. Photic stimulation at flash frequencies of 2-30 Hz produced a good symmetrical occipital driving response. No further activation was noted. Toward the mid and lateral portion of the tracing the patient does drift into spontaneous drowsiness. No epileptiform discharges were seen. IMPRESSION: This EEG is moderately abnormal in a diffuse fashion due to slowing of the EEG background. The EEG failed to reveal any focal, lateralized, or epileptiform abnormalities. Clinical correlation is recommended. MMODL / IJN: [id number] /
[2017-11-14 17:11] LABS: Glucose,Whole Blood 165 mg/dL (75-99)
--- NOTE | 2017-11-14 17:36 | P.PN ---
Subjective Progress Note Date: 11/14/17 This patient is a 87 year old female with worsening dementia and recent episode of wandering away from her assisted living facility. The patient is resting comfortably in bed today. She does not appear to be agitated or combative at all. She is very pleasantly confused. She was able to complete a EEG today which was reviewed and reveals evidence of moderate slowing with no evidence of epileptiform discharges. This finding would be consistent with her history of underlying dementia. She is being considered for placement in a 24-hour care extended care facility and possibly into a specialized dementia unit. We are waiting further recommendations from social work for discharge planning. The patient otherwise seems to be resting comfortably. She does not have any complaints today. We will continue to follow her progress closely during this admission. Her overall prognosis at this time remains guarded. Objective - Vital Signs Vital signs: Vital Signs Temp 97.9 F 11/14/17 06:40 Pulse 71 11/14/17 06:40 Resp 20 11/14/17 06:40 BP 146/86 11/14/17 06:40 Pulse Ox 96 11/14/17 06:40 Intake & Output 11/13/17 11/14/17 11/14/17 18:59 06:59 18:59 Intake Total 480 360 Output Total 300 Balance 480 -300 360 Intake: Oral 480 360 Output: Urine 300 Other: Voiding Method Bedside Commode Bedside Commode Bedside Commode Incontinent Incontinent Incontinent # Voids 2 5 4 # Bowel Movements 2 - Exam Physical Examination: PHYSICAL EXAMINATION: Patient is resting comfortably in bed. VITAL SIGNS: Blood pressure is [129/78]. Heart rate is [79]. Respiration is [18] . Temperature is [97.8]. HEENT: Head is atraumatic, neck is supple, there were no carotid bruits. CHEST: Lungs are clear to auscultation and percussion. CARDIAC: S1, S2 normal rate and rhythm. There is no murmur. ABDOMEN: Soft and nontender. Bowel sounds are present. EXTREMITIES: There is no pedal edema. Peripheral pulses are present. Neurological examination: Patient is awake alert and oriented 1 only. Her speech is fluent with no evidence of any aphasia or dysarthria. Her memory and intellectual functions are impaired. Cranial nerve examination: Cranial nerves II through XII are grossly intact. Motor examination: Patient is moving all 4 extremities. Muscle tone is normal. Muscle strength is 4/5 throughout. Deep tendon reflexes : DTRs are 1+ and symmetric. Plantar response is flexor bilaterally. Coordination gait cannot be assessed in this patient at this time. - Labs CBC & Chem 7: 11/10/17 21:32 11/10/17 21:32 Labs: Abnormal Lab Results - Last 24 Hours (Table) 11/13/17 11/13/17 11/14/17 Range/Units 17:02 20:25 07:24 POC Glucose (mg/dL) 192 H 222 H 170 H (75-99) mg/dL Assessment and Plan (1) Dementia Current Visit: Yes Status: Acute Code(s): F03.90 - UNSPECIFIED DEMENTIA WITHOUT BEHAVIORAL DISTURBANCE SNOMED Code(s): 00828623 (2) Urinary tract infection Current Visit: Yes Status: Acute Code(s): N39.0 - URINARY TRACT INFECTION, SITE NOT SPECIFIED SNOMED Code(s): 34167125 (3) Acute encephalopathy Current Visit: No Status: Acute Code(s): G93.40 - ENCEPHALOPATHY, UNSPECIFIED SNOMED Code(s): 13225255 (4) Altered mental status Current Visit: No Status: Acute Code(s): R41.82 - ALTERED MENTAL STATUS, UNSPECIFIED SNOMED Code(s): 644271685 (5) Atrial fibrillation with RVR Current Visit: No Status: Acute Code(s): I48.91 - UNSPECIFIED ATRIAL FIBRILLATION SNOMED Code(s): 419955849474060 Plan: This patient is a pleasant 87-year-old right-handed white female who was admitted to hospital with symptoms of worsening dementia and tendency to wander away from her assisted living facility. She was admitted to hospital for possible placement into a 24-hour care extended care facility. Patient is resting comfortably today and has no new complaints. She is pleasantly confused. She underwent routine EEG today which revealed moderate slowing consistent with history of underlying dementia. Would recommend she continue on her current dose of Aricept 10 mg daily. She is awaiting follow-up with social work for possible placement into ECF. Neurologically she remains very much stable and we will continue close follow-up for the patient during this admission. Overall prognosis at this time remains guarded.
[2017-11-14] MEDS: CLOPIDOGREL 75 MG TAB PO SCH (17:59)
[2017-11-14 21:04] LABS: Glucose,Whole Blood 201 mg/dL (75-99)
[2017-11-14] MEDS: DONEPEZIL 10 MG TAB PO SCH (22:01)
[2017-11-14] MEDS: METOPROLOL TARTRATE 25 MG TAB PO SCH (22:01)
[2017-11-15 07:17] LABS: Glucose,Whole Blood 170 mg/dL (75-99)
[2017-11-15 07:29] VITALS: RESP 16
[2017-11-15] MEDS: LOSARTAN 50 MG TAB PO SCH (08:16)
[2017-11-15] MEDS: metFORMIN 500 MG TAB PO SCH ×2 (08:16→17:37)
[2017-11-15] MEDS: CITALOPRAM HYDROBROMIDE 10 MG TAB PO SCH (08:16)
[2017-11-15] MEDS: ASPIRIN 81 MG PO SCH (08:16)
[2017-11-15] MEDS: CEFUROXIME 250 MG TAB PO SCH ×2 (08:17→21:55)
[2017-11-15] MEDS: ISOSORBIDE MONONITRATE ER 30 MG TAB.ER.24H PO SCH (08:17)
[2017-11-15 12:07] LABS: Glucose,Whole Blood 220 mg/dL (75-99)
--- NOTE | 2017-11-15 12:43 | PN ---
PROGRESS NOTE DATE OF SERVICE: 11/14/2017 SUBJECTIVE: This is a white female, seen by Neurology, Psychiatry, diagnosed with dementia. She has some mild metabolic encephalopathy secondary to UTI. Everyone thinks the consultation thinks she needs long-term dementia wing, fpc care. She is a fall risk and runaway risk, when she gets confused. Her vital signs are stable. CARDIOVASCULAR: S1, S2. GI: Soft. HEMATOLOGY: Negative Homans. NEUROLOGIC: Alert and orient x0. ASSESSMENT: 1. Dementia. 2. Metabolic encephalopathy urinary tract infection. 3. Generalized debility, flight risk. PLAN: 1. Long-term care fpc, dementia [place]. 2. Continue to finish antibiotics. 3. Continue home medications. 4. Continue Aricept for dementia. MMODL / IJN: [id number] /
--- NOTE | 2017-11-15 16:24 | DS ---
DISCHARGE SUMMARY DISCHARGE MEDICATIONS: 1. Aspirin 81 mg daily. 2. Celexa 10 mg daily. 3. Plavix 75 mg daily. 4. Aricept 10 mg daily. 5. NovoLog mix 5 units subcu b.i.d. 6. Imdur 30 mg daily. 7. Losartan 100 mg daily. 8. Melatonin 5 mg daily. 9. Metformin 500 b.i.d. 10.Metoprolol 25 daily. CONDITION: Stable. PROGNOSIS: Guarded. DISCHARGE ADVICE: 1. Diet as tolerated. 2. Follow up with Dr. Kim at [facility]. HOSPITAL COURSE OF EVENTS: White female, admitted with acute UTI, altered mental status secondary to metabolic encephalopathy and worsening dementia. Seen by Neurology and Psychiatry. Both recommended long-term care for the patient in the hospital, on dementia wing for long- term care as patient was treated with UTI and cleared for discharge by multiple doctors. A little trip care under Dr. Mahin Kim's care and possible dementia wing as she is a flight risk due to confusion due to dementia in the middle of the night. Aricept will be continued for dementia. Ceftin will be given for another 5 days for UTI and we will recheck a urine culture at 5-7 days. MMODL / IJN: [id number] /
--- NOTE | 2017-11-15 16:28 | P.PN ---
Subjective Progress Note Date: 11/15/17 This patient is a pleasant 87-year-old female was admitted to hospital with worsening dementia symptoms and wandering from her assisted living facility. Patient is being considered for placement into a 24-hour ECF with a dementia unit. She has been doing fairly well overall today. There is been no major changes in her underlying condition. She has evidence of underlying dementia which is showing signs of progression. She is being evaluated by social work for placement. She otherwise is pleasantly confused but does answer questions appropriately at times. We will continue close neurological follow-up for the patient. Objective - Vital Signs Vital signs: Vital Signs Temp 97.4 F L 11/15/17 15:00 Pulse 87 11/15/17 15:00 Resp 16 11/15/17 15:00 BP 138/84 11/15/17 15:00 Pulse Ox 95 11/15/17 15:00 Intake & Output 11/14/17 11/15/17 11/15/17 18:59 06:59 18:59 Intake Total 360 650 400 Output Total 300 Balance 360 350 400 Intake: Oral 360 650 400 Output: Urine 300 Other: Voiding Method Bedside Commode Bedside Commode Bedside Commode Incontinent Incontinent Incontinent # Voids 1 4 3 # Bowel Movements 0 0 1 - Exam Physical Examination: PHYSICAL EXAMINATION: Patient is resting comfortably in bed. VITAL SIGNS: Blood pressure is [138/84]. Heart rate is [87]. Respiration is [16] . Temperature is [97.4]. HEENT: Head is atraumatic, neck is supple, there were no carotid bruits. CHEST: Lungs are clear to auscultation and percussion. CARDIAC: S1, S2 normal rate and rhythm. There is no murmur. ABDOMEN: Soft and nontender. Bowel sounds are present. EXTREMITIES: There is no pedal edema. Peripheral pulses are present. Neurological examination: Patient is awake alert and oriented 1 only. Her speech is fluent with no evidence of any aphasia or dysarthria. Her memory and intellectual functions are impaired. Cranial nerve examination: Cranial nerves II through XII are grossly intact. Motor examination: Patient is moving all 4 extremities. Muscle tone is normal. Muscle strength is 4/5 throughout. Deep tendon reflexes : DTRs are 1+ and symmetric. Plantar response is flexor bilaterally. Coordination gait cannot be assessed in this patient at this time. - Labs CBC & Chem 7: 11/10/17 21:32 11/10/17 21:32 Labs: Abnormal Lab Results - Last 24 Hours (Table) 11/14/17 11/14/17 11/15/17 Range/Units 17:08 20:54 07:12 POC Glucose (mg/dL) 165 H 201 H 170 H (75-99) mg/dL 11/15/17 Range/Units 12:03 POC Glucose (mg/dL) 220 H (75-99) mg/dL Assessment and Plan (1) Dementia Current Visit: Yes Status: Acute Code(s): F03.90 - UNSPECIFIED DEMENTIA WITHOUT BEHAVIORAL DISTURBANCE SNOMED Code(s): 54399200 (2) Urinary tract infection Current Visit: Yes Status: Acute Code(s): N39.0 - URINARY TRACT INFECTION, SITE NOT SPECIFIED SNOMED Code(s): 96271075 (3) Acute encephalopathy Current Visit: No Status: Acute Code(s): G93.40 - ENCEPHALOPATHY, UNSPECIFIED SNOMED Code(s): 63729993 (4) Altered mental status Current Visit: No Status: Acute Code(s): R41.82 - ALTERED MENTAL STATUS, UNSPECIFIED SNOMED Code(s): 206947904 (5) Atrial fibrillation with RVR Current Visit: No Status: Acute Code(s): I48.91 - UNSPECIFIED ATRIAL FIBRILLATION SNOMED Code(s): 004128111872984 Plan: This patient is a pleasant 87-year-old right-handed white female who was admitted to hospital with symptoms of worsening dementia and tendency to wander away from her assisted living facility. She was admitted to hospital for possible placement into a 24-hour care extended care facility. Patient is resting comfortably today and has no new complaints. She is pleasantly confused. She underwent routine EEG today which revealed moderate slowing consistent with history of underlying dementia. Would recommend she continue on her current dose of Aricept 10 mg daily. She is awaiting follow-up with social work for possible placement into [facility] AT [facility]. Neurologically she remains very much stable and we will continue close follow-up for the patient during this admission. Patient is not showing any changes in her mental status today. She remains pleasantly confused. Due to her risk of wandering she is being considered for placement into a 24-hour care facility. Overall prognosis at this time remains guarded.
[2017-11-15 17:14] LABS: Glucose,Whole Blood 161 mg/dL (75-99)
[2017-11-15] MEDS: CLOPIDOGREL 75 MG TAB PO SCH (17:37)
[2017-11-15 21:11] LABS: Glucose,Whole Blood 165 mg/dL (75-99)
[2017-11-15] MEDS: METOPROLOL TARTRATE 25 MG TAB PO SCH (21:55)
[2017-11-15] MEDS: DONEPEZIL 10 MG TAB PO SCH (21:55)
[2017-11-16 06:22] VITALS: BP 178/85; PULSE 68; TEMP 96.6
[2017-11-16 07:13] LABS: Glucose,Whole Blood 166 mg/dL (75-99)
--- NOTE | 2017-11-16 08:44 | CDI ---
Last Revision, August 2017 Documentation Clarification Form Date: 11/16/2017 8:35:00 AM From: Eli Flakito RN Admit Date: 11/10/2017 11:26:00 PM Patient Name: Nalini Costello Visit Number: [id number] ATTENTION: The Clinical Documentation Specialists (CDI) and [facility] Coding Staff appreciate your assistance in clarifying documentation. Please respond to the clarification below the line at the bottom and electronically sign. The CDI & [facility] Coding staff will review the response and follow-up if needed. Please note: Queries are made part of the Legal Health Record. If you have any questions, please contact the author of this message via ITS. Dr. Mahin Kim, Encephalopathy is documented in the progress notes on 11/13, 11/14, 11/15,11/16 and discharge summary. History/Risk factors: CAD, Cancer, Heart Failure, CVA/TIA, dementia, DM, hyperlipidemia, HTN admitted with mental status change Clinical Indicators: EE/27 moderately abnormal in a diffuse fashion. failed to reveal any focal ,lateralized or epileptiform abnormalities CT/MRI Brain: cerebral atrophy and chronic small vessel ischemia. old left occipital lobe infarct Treatment: Consults: Neurology and Psychiatric In your professional opinion, can you please clarify the specific type of encephalopathy, if known? Anoxic Encephalopathy Metabolic Encephalopathy Toxic Encephalopathy Indicate whether acute, sub-acute or chronic? Other, please specify Unable to determine Please continue to document in your progress notes and discharge summary in order to capture severity of illness and risk of mortality. Include clinical findings that support your diagnosis. MTDD
[2017-11-16] MEDS: ASPIRIN 81 MG PO SCH (08:57)
[2017-11-16] MEDS: ISOSORBIDE MONONITRATE ER 30 MG TAB.ER.24H PO SCH (08:57)
[2017-11-16] MEDS: CEFUROXIME 250 MG TAB PO SCH (08:57)
[2017-11-16] MEDS: CITALOPRAM HYDROBROMIDE 10 MG TAB PO SCH (08:57)
[2017-11-16] MEDS: LOSARTAN 50 MG TAB PO SCH (08:57)
[2017-11-16] MEDS: metFORMIN 500 MG TAB PO SCH (08:57)
[2017-11-16 12:01] LABS: Glucose,Whole Blood 219 mg/dL (75-99)
== END 2017-11-16 16:02 | DRG 689 ==
LOC: EC 21:18 → 4MS4W 23:26
PROVIDERS: ADMIT Family Medicine; ATTEND Family Medicine
DX: N39.0 Urinary tract infection, site not specified (principal); G93.41 Metabolic encephalopathy; F03.91 Unspecified dementia, unspecified severity, with behavioral disturbance; I11.0 Hypertensive heart disease with heart failure; I48.0 Paroxysmal atrial fibrillation; I50.9 Heart failure, unspecified; E11.9 Type 2 diabetes mellitus without complications; E03.9 Hypothyroidism, unspecified; E78.5 Hyperlipidemia, unspecified; Z91.83 Wandering in diseases classified elsewhere; F41.9 Anxiety disorder, unspecified; I25.10 Atherosclerotic heart disease of native coronary artery without angina pectoris; I48.2 Chronic atrial fibrillation; Z79.02 Long term (current) use of antithrombotics/antiplatelets; Z79.4 Long term (current) use of insulin; Z79.899 Other long term (current) drug therapy; Z85.038 Personal history of other malignant neoplasm of large intestine; Z86.73 Personal history of transient ischemic attack (TIA), and cerebral infarction without residual deficits; Z95.5 Presence of coronary angioplasty implant and graft; Z96.659 Presence of unspecified artificial knee joint; Z88.5 Allergy status to narcotic agent; Z91.040 Latex allergy status; Z88.2 Allergy status to sulfonamides; Z88.0 Allergy status to penicillin; Z91.013 Allergy to seafood
CPT/HCPCS: 36415; 70450; 71046; 80053; 80306; 81001; 82550; 82553; 84484; 85025; 85610; 85730; 93005; 95816; 99285